=== PATIENT | male | born 1940 | race Caucasian/White ===

== ENCOUNTER 2020-07-26 15:30 | Outpatient (CLI) | payer MEDICARE, SELFPAY ==
--- NOTE | ~2020-07-26 | CT_ITS ---
EXAMINATION: CT sinus wo con DATE: 07/26/2020 16:08 INDICATION: Sinusitis TECHNIQUE: Computed tomography (CT) of the paranasal sinuses was performed without intravenous contra st. The dose-length product was 309.35 mGy-cm. Iterative reconstruction technique was employed. COMPARISON: 07/14/2017 FINDINGS: There is extensive mucosal thickening of the frontal, ethmoid, sphenoid and maxillary sinus es. There is mucoperiosteal reaction of the maxillary sinuses. Mastoids are pneumatized. Rightward na brown septal deviation. There are surgical changes bilaterally consistent with surgical resection of th e ostiomeatal units. Mastoids are pneumatized. IMPRESSION: 1. Extensive pansinusitis. Reviewed, dictated and finalized at location B. IMPRESSION: 1. Extensive pansinusitis.
== END 2020-07-26 15:31 | disposition home or self-care (01) ==
LOC: ANHIMG 15:37
PROVIDERS: PCP Internal Medicine; Visit Provider Otolaryngology
DX: J32.4 Chronic pansinusitis (principal)
CPT/HCPCS: 70486

== ENCOUNTER 2021-08-22 16:19 | Observation (INO) | payer MEDICARE, SELFPAY ==
[2021-08-22] VITALS (7 sets, daily range): BP systolic 164–173; BP diastolic 69–110; PULSE 70–95; RESP 15–20; TEMP 35.9–37.1; O2SAT 94–98; BMI 29.9
--- NOTE | ~2021-08-22 | US_ITS ---
EXAMINATION: US carotid duplex BI DATE: 08/23/2021 13:40 INDICATION: Cerebrovascular accident. TECHNIQUE: Grayscale, color Doppler, and pulsed Doppler images of the cervical carotid arteries were obtained. The degree of vessel stenosis is placed in one of the following categories: normal, <50%, 5 0-69%, >=70% but less than near-occlusion, near-occlusion, or total occlusion. Note that percent sten osis relative to normal distal artery lumen diameter is indirectly measured from velocity measurement s as described by Jorge, et al. Radiology 2003; 229:340-346. COMPARISON: None. FINDINGS: RIGHT: The right common carotid artery (CCA) peak systolic velocity (PSV) is 81 cm/s. The right internal car otid artery (ICA) PSV is 38 cm/s. The right ICA end-diastolic velocity (EDV) is 4 cm/s. The right ICA /CCA PSV ratio is 0.5. Grayscale and color Doppler images yield an estimate of <50% diameter reductio n from plaque in the ICA. There is antegrade flow in the right vertebral artery. LEFT: The left CCA PSV is 97 cm/s. The left ICA PSV is 76 cm/s. The left ICA EDV is 9 cm/s. The left ICA/CC A PSV ratio is 0.8. Grayscale and color Doppler images yield an estimate of <50% diameter reduction f rom plaque in the ICA. There is antegrade flow in the left vertebral artery. IMPRESSION: 1. <50% stenosis in the right internal carotid artery. 2. <50% stenosis in the left internal carotid artery. Reviewed, dictated and finalized at location A. HIC ARTIST
--- NOTE | ~2021-08-22 | XR_ITS ---
EXAMINATION: XR chest 1V portable DATE: 08/22/2021 16:41 INDICATION: Stroke. Altered mental status. TECHNIQUE: frontal view of the chest was obtained. COMPARISON: Chest radiograph dated 10/06/[address] dated 07/14/2017. FINDINGS: Persistent mild opacities at the lingula with partial obscuration of the apex of the heart which appe ars to correspond to a left paracardial fat pad on prior CT. Right lung is clear. No pulmonary edema, pleural effusion or pneumothorax. The cardiomediastinal silhouette is normal. Visualized bones and s oft tissues are unremarkable. IMPRESSION: 1. No acute cardiopulmonary disease. Reviewed, dictated and finalized at location A. ICE SUPERINTENDENT
--- NOTE | ~2021-08-22 | MR_ITS ---
EXAMINATION: MR brain/brain stem wo/w con EXAM DATE: 08/23/2021 13:11 INDICATION: Confusion. TECHNIQUE: Magnetic resonance imaging (MRI) of the brain/brain stem obtained without contrast. Sagit mendoza T1, axial diffusion, gradient echo (T2*), T1, T2, FLAIR sequences obtained. Patient was then inj ected with 18 cc intravenous Multihance contrast. Axial and coronal postcontrast T1 weighted sequence s obtained. There is no prior study for comparison. FINDINGS: Study is limited due to patient motion. There are no areas of restricted diffusion to sug gest acute infarction. There is no acute hemorrhage seen on the T2*, a hemosiderin sensitive sequenc e. No intraparenchymal brain mass lesion. There is mild to moderate periventricular and subcortical T2/FLAIR signal hyperintensity, nonspecific but probably related to small vessel ischemic disease (m icroangiopathy). There is mild to moderate prominence of the sulci and ventricles related to cerebr al atrophy. There are no extra-axial collections. Flow voids are seen in the cerebral arteries on the T2-weighted sequences consistent with their expected patency. The orbits are unremarkable. Soft tissue is unremarkable. Mild mucoperiosteal thickening. Post contrast images significantly limited by motion. IMPRESSION: 1. Limited study, but no acute findings suspected. 2. Chronic age related findings. Reviewed, dictated and finalized at location B. TRODYNAMICIST
--- NOTE | ~2021-08-22 | CT_ITS ---
EXAMINATION: CT brain wo con DATE: 08/22/2021 17:13 INDICATION: Stroke. Found unresponsive. TECHNIQUE: Computed tomography (CT) of the head was performed without intravenous contrast. Sagittal and coronal reconstructions were performed. The mA was adjusted according to patient size. Iterative reconstruction technique was employed. The dose-length product was 605.33 mGy-cm. COMPARISON: head CT dated 04/28/2012 FINDINGS: Mild scattered motion artifact which only minimally limits evaluation. No fracture. No acute intracra nial hemorrhage, acute infarction or abnormal extra axial fluid collection. There is mild to moderate scattered white matter hypoattenuation consistent with chronic small vessel ischemic disease. Ventri cles are normal and symmetric. No mass/mass effect. Mild to moderate mucosal thickening throughout th e paranasal sinuses most prominent in the left maxillary and bilateral ethmoid sinuses. Postoperative change of bilateral antral window procedures. Changes of bilateral intraocular lens replacement. Th e orbits and mastoid air cells are normal. IMPRESSION: 1. No acute intracranial process. 2. Mild to moderate scattered white matter hypoattenuation consistent with chronic small vessel ische jefry disease. Reviewed, dictated and finalized at location A. GE REGISTERED NURSE IMPRESSION: 1. No acute intracranial process. 2. Mild to moderate scattered white matter hypoattenuation consistent with medical office secretary eduard small vessel ischemic disease.
--- NOTE | 2021-08-22 16:26 | ECG_ITS ---
Measurements Intervals [place] Rate: 88 P: 56 SD: 158 QRS: -8 QRSD: 94 T: 47 QT: 372 QTc: 452 Interpretive Statements SINUS RHYTHM INCOMPLETE RIGHT BUNDLE BRANCH BLOCK VOLTAGE CRITERIA FOR LVH BASELINE ARTIFACT- I, II, III, AVL, AVF, V1-V2 BORDERLINE ECG Electronically Signed On 08-22-2021 20:06:39 AIRWAYS OPERATIONS SPECIALIST by Santy Zaragoza D.O.
[2021-08-22 16:41] LABS: Glucose Point of Care 136 mg/dl (65-105)
--- NOTE | 2021-08-22 16:43 | ED.AMS ---
HPI - Altered Mental Status General Chief Complaint: Altered Mental Status Stated Complaint: unresponsive Time Seen by Provider: 08/22/21 16:24 Source: family Mode of arrival: EMS Limitations: altered mental status History of Present Illness HPI narrative: Patient is a 80-year-old male brought in by EMS after he had a seizure and became unresponsive, while sitting down, witnessed by prior to arrival. states that he had a history of seizures a long time ago, has not had any seizure in 20 years, not on any medication for seizure. Patient was asymptomatic prior to the episode. Related Data Home Medications Medication Instructions Recorded Confirmed diphenoxylate-atropine 1 tablet PO TID 08/22/21 08/22/21 Allergies Allergy/AdvReac Type Severity Reaction Status Date / Time amoxicillin Allergy Unknown Diarrhea Verified 08/22/21 18:21 levofloxacin Allergy Unknown Diarrhea Verified 08/22/21 18:21 Penicillins Allergy Unknown Rash Verified 08/22/21 18:21 phenylephrine Allergy Unknown Diarrhea Verified 08/22/21 18:21 Review of Systems Review of Systems: All systems reviewed & are unremarkable except as noted in HPI and below ROS unobtainable: Yes unobtainable due to mental status Constitutional: Constitutional: Reports as per HPI PMFSH Family History Family History Father Hypertension Cerebrovascular accident Mother Family history of congestive heart failure Family history of heart disease in male family member before age 55 Other Family history of allergic disorder Family history of arthritis Social History Social History Smoking end date: 10/05/97 Alcohol intake: current Comments Past medical history: Hypertension Family history: Unknown Social history: Non-smoker no EtOH or drug use Exam Const: General: alert and confusion Nutritional Appearance: well nourished Other: Moderate distress HENMT: Head: normal to inspection, normocephalic and atraumatic Ears: hearing grossly normal bilaterally, TM normal on the right and TM normal on the left General nose exam: Normal external nose present, Normal nares present and No nasal discharge present Face and sinus: normal facial exam Mouth: Yes Normal oral and palatal mucosa present, Yes lip normal, Yes tongue normal and Yes oropharynx normal Throat: posterior oropharynx normal, tonsils normal and uvula midline Eyes: General: appearance normal, both eyes and all related structures Pupils: Equal, round and reactive pupils present EOM: EOMs intact bilaterally Neck: Neck: normal visual inspection, full ROM, no lymphadenopathy and no meningeal signs Chest: Chest palpation & inspection: normal inspection of the chest Resp: Effort & Inspection: normal respiratory effort, no respiratory distress and not tachypneic Auscultation: clear to auscultation bilaterally, no crackles, no rales, no rhonchi and no wheezes Cardio: Rate: regular rate Rhythm: regular rhythm GI: Inspection: normal to inspection GI Palp: No abdominal tenderness, Yes Soft to palpation, No Tenderness to palpation present (GI), No Guarding due to palpation present (GI), No Rigid due to palpation and No Rebound tenderness present Auscultation: normal bowel sounds : General: Yes no CVA tenderness Back/Spine/Pelvis: Back: no CVA tenderness Skin: General skin exam: normal color, no rashes or lesions noted, elasticity normal and turgor normal Neuro: General: tone normal, moves all extremities and Normal light touch and pain sensation Cranial nerves: Yes Equal, round and reactive pupils present Other: Confused, unable to follow any commands Extrem: General: normal to inspection, full ROM and capillary refill normal Psych: Appearance: well kempt Course Vital Signs Vital signs: Vital Signs Temperature 35.9 C L 08/22/21 16:16 Pulse Rate 91 08/22/21 16:16 Respirat
[2021-08-22] MEDS: LORazepam INJ (*CRX) 2 MG/ML VIAL IV PUSH (17:03)
[2021-08-22 18:19] LABS: Basophils Percent Auto 0.2 % (0.2-1.2); Hematocrit 42.4 % (42.0-52.0); Hemoglobin 15.2 g/dL (14.0-18.0); Immature Granulocyte Absolute 0.08 K/mm3 (0.00-0.031); Immature Granulocyte Percent A 0.4 % (0-0.5); Lymphocytes Absolute Auto 0.88 K/mm3 (0.9-3.2); Lymphocytes Percent Auto 4.5 % (18.3-44.2); Mean Corpuscular HGB Conc 35.8 g/dl (32-36); Mean Platelet Volume 11.1 fl (7.4-10.4); Monocytes Percent Auto 5.4 % (2.6-8.5); Neutrophils Absolute Auto 17.4 K/mm3 (1.3-6.7); Neutrophils Percent Auto 89.5 % (45.5-73.1); Platelet Count Result 237 k/mm3 (150-375); Red Blood Count 4.61 M/mm3 (4.6-6.20); Red Cell Distribution Width 11.9 % (11.5-14.5); White Blood Count 19.4 K/mm3 (4.5-10.0)
[2021-08-22 18:25] LABS: Glucose Point of Care 123 mg/dl (65-105)
[2021-08-22 18:29] LABS: Alanine Aminotransferase 26 U/L (4-50); Albumin Level 4.4 g/dL (3.5-5.1); Alkaline Phosphatase 78 U/L (38-126); Anion Gap 8 mmol/L (8-16); Aspartate Amino Transferase 42 U/L (17-59); Bilirubin,Total 0.6 mg/dL (0.2-1.3); Blood Urea Nitrogen 17 mg/dL (9-20); Calcium 9.1 mg/dL (8.4-10.2); Carbon Dioxide 26 mmol/L (22-30); Chloride 94 mmol/L (98-107); Estimated CRCL calculation 77 ml/min; Estimated Glomerular Filt Rate > 60; Ethanol < 10 mg/dL (<10); Glucose 120 mg/dL (65-110); Potassium 3.7 mmol/L (3.4-5.0); Sodium 128 mmol/L (137-145)
[2021-08-22 18:32] LABS: INR 0.9; Prothrombin Time 12.5 Seconds (11.1-14.7)
[2021-08-22 18:33] LABS: Partial Thromboplastin Time 24.8 SECONDS (22.3-36.8)
[2021-08-22 18:45] LABS: Troponin I 0.281 ng/mL (0.000-0.034)
[2021-08-22] MEDS: levETIRAcetam 1000MG/NACL100ML 1,000 MG/100 ML BAG 400 MG IVPB (19:33)
[2021-08-22] MEDS: SODIUM CHLORIDE 0.9% IV 1,000 ML 250 ML IV CONT (19:33)
[2021-08-22 20:09] LABS: Add Urine Microscopic? YES; Appearance Urine Cloudy (Clear); Bilirubin Urine Negative (Negative); Blood Urine 1+ (Negative); Color Urine Yellow (Yellow); Glucose Urine UA 1+ mg/dL (Negative); Ketones Urine Trace mg/dL (Negative); Leukocyte Esterase Ur Negative LEU/UL (Negative); Mucus Urine Rare /lpf; Nitrate Urine Negative (Negative); Protein Urine 2+ mg/dL (Negative); Specific Grav Ur 1.014 (1.001-1.035); Squamous Epithelial Cell Urine Rare /hpf (Few); Urobilinogen Urine Negative mg/dL (<2.0)
--- NOTE | 2021-08-22 21:30 | ADMGEN ---
This patient, Andre Steward, was admitted to IMU Room 205-02 at 2114. Patient/family oriented to hospital policies and general routines including ID bracelet, bed and alarms, visiting hours, pain management, procedures, bathroom and other care routines, personal items, smoking policy, room service/diet, and visiting hours. Information on how to activate the Rapid Response Team has been discussed. Patient/Family are encouraged to report perceived risks to care and to ask questions if they do not understand what they are told or what they should do.
--- NOTE | 2021-08-22 23:03 | PM.IMHP ---
H&P: HPI History of Present Illness Date/Time: 08/22/21 23:03 this is a 80-year-old male patient who has a history of having seizures in the past but is not on any medications for seizures. The patient is not able to answer questions at this time the is at the bedside answering questions for him. The patient was brought into the emergency room via EMS after he had a seizure and became unresponsive. The seizure was witnessed by his . The stated that the patient had a seizure approximately 20 years ago. The patient facially wakes up and answers questions but then he states I am sleeping and closes his eyes. Head CT was read by radiology as no acute intracranial process. Mild to moderate scattered white matter hypoattenuation consistent with chronic small vessel ischemic disease. Chest x-ray was read as no acute cardiopulmonary disease. White count 19.4. Sodium 128. With a baseline of 129 to 132. His blood sugar was 120. Troponin 0.281 and 0.270 respectively. Ethyl alcohol less than 10. Who Dr. Fitzpatrick was consulted for the seizure activity and cardiology for elevated troponin. The patient was given Ativan, aspirin, IV fluids and Keppra IV. The patient is being admitted to observation status on the date of service of 08/22/21. Chief Complaint: Seizure disorder Review of Systems Review of Systems: All systems reviewed & are unremarkable except as noted in HPI and below Constitutional: Constitutional: Reports as per HPI and Reports no additional constitutional complaints Eyes: Eyes: Reports as per HPI and Reports no additional eye complaints ENT: Reports system reviewed and no additional complaints, except as documented and Reports Normal hearing present Cardiovascular: Cardiovascular: Reports no additional cardiovascular complaints Respiratory: Respiratory: Reports no additional respiratory complaints and Reports no additional respiratory complaints Gastrointestinal: Gastrointestinal: Reports as per HPI and Reports no additional gastrointestinal complaints Musculoskeletal: Musculoskeletal: Reports no additional musculoskeletal complaints Integumentary/Breasts: Skin/Breast: Reports system reviewed and no additional complaints, except as docu and Reports as per HPI Neurologic: Reports system reviewed and no additional complaints, except as documented, Reports as per HPI and Reports Normal hearing present Psychiatric: Psychiatric: Reports no additional psychiatric complaints and Reports as per HPI Endocrine: Endocrine: Reports no additional endocrine complaints Hematologic/Lymphatic: Hematologic/Lymphatic: Reports no additional hematologic/lymphatic complaints Allergic/Immunologic: Allergic/Immunologic: Reports no additional allergic/immunologic complaints [facility] Past Medical History Medical History (Updated 08/22/21 @ 23:13 by Sheri Carias NP) Essential (primary) hypertension Mixed hyperlipidemia Seizure Surgical History Surgical History (Updated 08/22/21 @ 23:13 by Sheri Carias NP) H/O abdominal surgery H/O cataract extraction H/O nasal septoplasty H/O sinus surgery X3 Family History Family History Father Hypertension Cerebrovascular accident Mother Family history of congestive heart failure Family history of heart disease in male family member before age 55 Other Family history of allergic disorder Family history of arthritis Social History Social History (Updated 08/22/21 @ 23:15 by Sheri Carias NP) Social History: The patient lives with his . He has 4 children. According to the records the patient would drink up to 2-3 beers a day and more on the weekends. 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 Patient quit smoking many years ago. No marijuana or illicit drugs noted. His is the durable power of personal injury attorney for healthcare. Code status full code Smoking status: Former smoker Smoking end
[2021-08-22] MEDS: LORazepam INJ (*CRX) 2 MG/ML VIAL 0.5 MG IV PUSH (23:51)
[2021-08-23] VITALS (17 sets, daily range): BP systolic 133–170; BP diastolic 57–113; PULSE 69–90; RESP 12–20; TEMP 36.3–37.6; O2SAT 95–98; BMI 29.9
--- NOTE | 2021-08-23 | ECHO_ITS ---
Patient Info Name: Andre Steward Age: 80 years : 1940 Gender: Male Ht: 70 in Wt: 208 lbs BSA: 2.18 m2 HR: 70 bpm BP: 133 / 113 mmHg Heart Rhythm: Sinus Rhythm Technical Quality: Poor Exam Date: 08/23/2021 2:49 PM Exam Location: [facility] Pulmonary Exam Room: [facility] Patient Status: Outpatient Admit Date: 08/22/2021 Staff Ordering Physician: Sheri Carias NP [employer] Representative: Lisa Newberry RDCS Attending Provider: Elder Castillo MD Referring Physician: Jv NOLEN; Exam Type: CA echo dop bubble study w con Study Info Indications - confusion Complete two-dimentional, color flow and Doppler transthoracic echocardiogram is performed with agitated saline and with contrast to opacify the left ventricle and to improve the delineation of the left ventricle endocardial borders. Contrast/Agitated Saline Contrast/Ag. Saline: Definity Amount: 2.00 ml Administered By: Pearl Recio RN New IV Access: Right Site Condition: Site dressing applied Reason for Poor Study: patient body habitus Summary 1. Left ventricular chamber dimension is normal. 2. Left ventricular systolic function is normal, estimated at 65-70%. 3. There is mildly increased left ventricular wall thickness. 4. The left ventricular diastolic function is grade I diastolic dysfunction. 5. There is mild aortic valve stenosis with a peak velocity of 186 cm/s, mean gradient of 8 mmHg, and aortic valve area of 2.0 cm2. 6. There is moderate aortic valve calcification. 7. The aortic valve is significantly abnormal in appearance. It is thickened and calcified. If there is concern of endocarditis, would recommend a GUANACO. Will need follow-up/serial echoes as an outpatient. 8. There is mild tricuspid valve regurgitation. 9. Moderate pulmonary hypertension, estimated pulmonary arterial systolic pressure is 46 mmHg. 10. Intact interatrial septum visualized by color flow and agitated saline imaging. Left Ventricle Left ventricular chamber dimension is normal. Left ventricular systolic function is normal, estimated at 65-70%. There is mildly increased left ventricular wall thickness. The left ventricular diastolic function is grade I diastolic dysfunction. Right Ventricle Right ventricular chamber dimension is normal. Right ventricular systolic function is normal. Left Atria Left atrial chamber dimension is normal. Right Atria Right atrial chamber dimension is normal. Atrial Septum Intact interatrial septum visualized by color flow and agitated saline imaging. Aortic Valve The aortic valve is trileaflet. There is mild aortic valve stenosis with a peak velocity of 186 cm/s, mean gradient of 8 mmHg, and aortic valve area of 2.0 cm2. There is trace aortic valve regurgitation. There is moderate aortic valve calcification. The aortic valve is significantly abnormal in appearance. It is thickened and calcified. If there is concern of endocarditis, would recommend a GUANACO. Will need follow-up/serial echoes as an outpatient. Pulmonic Valve The pulmonic valve is normal. There is no pulmonic valve stenosis. There is trace pulmonic regurgitation. Mitral Valve The mitral valve has normal leaflets. There is no mitral valve stenosis. There is trace mitral valve regurgitation. Tricuspid Valve The tricuspid valve leaflets are normal. There is no significant tricuspid valve stenosis. There is mild tricuspid valve regurgitation.
[2021-08-23 00:31] LABS: Anion Gap 7 mmol/L (8-16); Blood Urea Nitrogen 15 mg/dL (9-20); Calcium 8.9 mg/dL (8.4-10.2); Carbon Dioxide 24 mmol/L (22-30); Chloride 97 mmol/L (98-107); Estimated CRCL calculation 67 ml/min; Estimated Glomerular Filt Rate > 60; Glucose 114 mg/dL (65-110); Potassium 3.5 mmol/L (3.4-5.0); Sodium 128 mmol/L (137-145)
[2021-08-23 01:56] LABS: Basophils Percent Auto 0.1 % (0.2-1.2); Eosinophils Percent Auto 0.1 % (0-4.4); Hematocrit 37.8 % (42.0-52.0); Hemoglobin 13.6 g/dL (14.0-18.0); Immature Granulocyte Absolute 0.05 K/mm3 (0.00-0.031); Immature Granulocyte Percent A 0.4 % (0-0.5); Lymphocytes Absolute Auto 1.56 K/mm3 (0.9-3.2); Lymphocytes Percent Auto 11.2 % (18.3-44.2); Mean Corpuscular Hemoglobin 33.1 pg (26-34); Monocytes Absolute Auto 1.2 K/mm3 (0.1-0.6); Monocytes Percent Auto 8.7 % (2.6-8.5); Neutrophils Absolute Auto 11.1 K/mm3 (1.3-6.7); Neutrophils Percent Auto 79.5 % (45.5-73.1); Platelet Count Result 236 k/mm3 (150-375); Red Blood Count 4.11 M/mm3 (4.6-6.20); Red Cell Distribution Width 11.9 % (11.5-14.5); White Blood Count 13.9 K/mm3 (4.5-10.0)
[2021-08-23 02:08] LABS: Alanine Aminotransferase 25 U/L (4-50); Albumin Level 3.9 g/dL (3.5-5.1); Alkaline Phosphatase 66 U/L (38-126); Anion Gap 7 mmol/L (8-16); Aspartate Amino Transferase 53 U/L (17-59); Bilirubin,Total 0.7 mg/dL (0.2-1.3); Blood Urea Nitrogen 15 mg/dL (9-20); Calcium 8.8 mg/dL (8.4-10.2); Carbon Dioxide 26 mmol/L (22-30); Chloride 98 mmol/L (98-107); Estimated CRCL calculation 67 ml/min; Estimated Glomerular Filt Rate > 60; Glucose 112 mg/dL (65-110); Lactate Dehydrogenase 642 U/L (313-618); Lactic Acid Reflex 0.9 mmol/L (0.7-2.1); Magnesium 1.9 mg/dL (1.6-2.3); Potassium 3.6 mmol/L (3.4-5.0); Sodium 131 mmol/L (137-145)
[2021-08-23 02:32] LABS: Troponin I 0.252 ng/mL (0.000-0.034)
[2021-08-23 02:39] LABS: Thyroid Stimulating Hormone Reflex 0.646 uIU/mL (0.465-4.68)
[2021-08-23] MEDS: LACTATED RINGERS 1,000 ML 125 ML IV CONT ×3 (03:55→23:46)
[2021-08-23 06:16] LABS: Sodium Urine Random 56 meq/L
[2021-08-23 06:31] LABS: Amphetamine Screen Urine Negative (Negative); Barbiturate Screen Urine Negative (Negative); Benzodiazepines Screen Urine Negative (Negative); Cannabinoid Screen Urine Negative (Negative); Cocaine Screen Urine Negative (Negative); Methadone Screen Urine Negative (Negative); Opiate Screen Urine Negative (Negative); Phencyclidine Screen Urine Negative (Negative)
[2021-08-23] MEDS: LORazepam INJ (*CRX) 2 MG/ML VIAL 0.5 MG IV PUSH (07:40)
[2021-08-23] MEDS: FOLIC ACID 1 MG/0.2 ML INJ IV PUSH (08:48)
[2021-08-23] MEDS: THIAMINE HCL 200 MG/2 ML VIAL 100 MG IV PUSH (08:48)
[2021-08-23] MEDS: METOPROLOL TARTRATE 50 MG TAB PO ×2 (08:49→20:09)
[2021-08-23] MEDS: levETIRAcetam 500MG/NACL 100ML 500 MG/100 ML BAG 400 MG IVPB ×2 (08:50→20:09)
[2021-08-23] MEDS: lisinopriL 10 MG TABLET 30 MG PO ×2 (08:50→17:04)
--- NOTE | 2021-08-23 10:13 | PM.IMPN ---
Progress Note: A&P Assessment and Plan (1) Seizure: Code(s): R56.9 - Unspecified convulsions Status: Chronic Assessment and Plan: Breakthrough seizure Last seizure more than 20 years ago Started on Keppra Neurology consulted CT head negative Pending MRI, carotids and Dopplers due to his confusion. (2) Acute hyponatremia: Code(s): E87.1 - Hypo-osmolality and hyponatremia Status: Acute Assessment and Plan: Patient chronically has low sodium. The patient's stated that the patient drinks beer on a daily basis but only 2 or 3 beers. He is not on any diuretics. Urine osmolarity and urine sodium pending. His sodium levels 128 today. Looks like he has a baseline anywhere from 129-133. (3) Elevated troponin: Code(s): R77.8 - Other specified abnormalities of plasma proteins Status: Acute Assessment and Plan: Appears to be level. Cardiology has been consulted. This could be related to the seizure. Flat trajectory Check echo May need stress test down the line (4) Altered mental status: Qualifiers: Altered mental status type: unspecified Qualified Code(s): R41.82 - Altered mental status, unspecified Code(s): R41.82 - Altered mental status, unspecified Status: Acute Assessment and Plan: Could be postictal Alcohol level negative UDS negative CT head negative Pending MRI, carotids and an echo (5) Essential (primary) hypertension: Code(s): I10 - Essential (primary) hypertension Status: Chronic Assessment and Plan: Continue with lisinopril metoprolol (6) Mixed hyperlipidemia: Code(s): E78.2 - Mixed hyperlipidemia Status: Chronic Assessment and Plan: The patient does not appear to be on any medication at this time. (7) Chronic pansinusitis: Code(s): J32.4 - Chronic pansinusitis Status: Acute Assessment and Plan: The patient has had 3 previous sinus surgeries and sees the ENT specialist. (8) Leukocytosis: Code(s): D72.829 - Elevated white blood cell count, unspecified Status: Acute Assessment and Plan: 19,000 on admission down to 13,000 without any antibiotics Urinalysis with few WBC but nitrite and leukocyte esterase negative not quite impressive Chest x-ray negative Subjective Date/time seen: 08/23/21 10:13 Interval history: HPI:this is a 80-year-old male patient who has a history of having seizures in the past but is not on any medications for seizures. The patient is not able to answer questions at this time the is at the bedside answering questions for him. The patient was brought into the emergency room via EMS after he had a seizure and became unresponsive. The seizure was witnessed by his . The stated that the patient had a seizure approximately 20 years ago. The patient facially wakes up and answers questions but then he states I am sleeping and closes his eyes. Head CT was read by radiology as no acute intracranial process. Mild to moderate scattered white matter hypoattenuation consistent with chronic small vessel ischemic disease. Chest x-ray was read as no acute cardiopulmonary disease. White count 19.4. Sodium 128. With a baseline of 129 to 132. His blood sugar was 120. Troponin 0.281 and 0.270 respectively. Ethyl alcohol less than 10. Who Dr. Fitzpatrick was consulted for the seizure activity and cardiology for elevated troponin. The patient was given Ativan, aspirin, IV fluids and Keppra IV. The patient is being admitted to observation status on the date of service of 08/22/21. 08/23/2021. More awake this morning. at bedside. Had a seizure in the afternoon yesterday. Has not had seizures for past 20 years. Review of Systems Review of Systems: All systems reviewed & are unremarkable except as noted in HPI and below Exam Narrative: GENERAL: The patient is well developed, not in acute distress HEENT: Nonicteric sclera
--- NOTE | 2021-08-23 10:13 | WPDNEURCNPN ---
Assessment and Plan Additional Plan 1. Ongoing seizure disorder with breakthrough seizures and documented subtherapeutic Keppra level 2. As per evaluation hyponatremia 3. Postictal state plan as ordered Consult date: 08/23/21 HPI: Andre Steward is a 80 year old male admitted to the hospital for the complaints of seizures he was unable to answer the question initially in the information was obtained from his reportedly was brought to the emergency room via EMS after having had a seizure and becoming unresponsive his seizure was witnessed by his patient's has had a seizure about 20 years ago as per the information from the initial CT scan of the head in the emergency room was negative for the bleed, mild to moderate scattered white matter hypoattenuation was noted, chest x-ray was negative and CBC revealed leukocytosis with sodium only 128 on the BMP alcohol level was less than 10. He received Ativan aspirin and IV fluids along with the Keppra intravenously in the emergency room , is a former smoker current alcohol intake alert but never substance user and his medication as an outpatient included metoprolol and lisinopril Review of Systems Review of Systems: All systems reviewed & are unremarkable except as noted in HPI and below PMFSH Past Medical History Medical History Essential (primary) hypertension Mixed hyperlipidemia Seizure Surgical History Surgical History H/O abdominal surgery H/O cataract extraction H/O nasal septoplasty H/O sinus surgery X3 Family History Family History Father Hypertension Cerebrovascular accident Mother Family history of congestive heart failure Family history of heart disease in male family member before age 55 Other Family history of allergic disorder Family history of arthritis Social History Social History (Updated 08/22/21 @ 23:15 by Sheri Carias NP) Social History: The patient lives with his . He has 4 children. According to the records the patient would drink up to 2-3 beers a day and more on the weekends. 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 Patient quit smoking many years ago. No marijuana or illicit drugs noted. 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 Code status full code Smoking status: Former smoker Smoking end date: 08/06/02 Alcohol intake: current Substance use: never Spiritual care concerns: No Meds Home Medications and Allergies Home Medications Medication Instructions Recorded Confirmed Type lisinopril 30 mg PO BID 08/22/21 08/22/21 History metoprolol tartrate 50 mg PO BID 08/22/21 08/22/21 History Allergies Allergy/AdvReac Type Severity Reaction Status Date / Time amoxicillin Allergy Unknown Diarrhea Verified 08/22/21 18:21 levofloxacin Allergy Unknown Diarrhea Verified 08/22/21 18:21 Penicillins Allergy Unknown Rash Verified 08/22/21 18:21 phenylephrine Allergy Unknown Diarrhea Verified 08/22/21 18:21 Vital Signs Vital Signs - 24 hr 08/22/21 16:16 08/22/21 18:17 08/22/21 20:30 Temperature 35.9 C L Pulse Rate 91 94 71 Pulse Rate [Bilateral Palpation] Respiratory Rate 20 18 15 Blood Pressure 168/97 H 172/94 H 173/110 H Pulse Oximetry 96 98 98 08/22/21 20:32 08/22/21 21:25 08/22/21 22:00 Temperature 37.1 C 36.9 C Pulse Rate 90 95 Pulse Rate [Bilateral Palpation] Respiratory Rate 16 Blood Pressure 164/69 H Pulse Oximetry 94 08/22/21 23:22 08/23/21 00:00 08/23/21 00:57 Temperature 36.9 C Pulse Rate 90 78 Pulse Rate [Bilateral Palpation] 70 70 Respiratory Rate 17 Blood Pressure 158/74 H Pulse Oximetry 95 08/23/21 04:00 08/23/21 07:20 08/23/21 07:42 Temperature 37.0 C 36.3 C L Pulse Rate 87 85 Pulse Rate [Bilateral Palpation] 81 81 Respiratory Rate 18 12 Blood P
--- NOTE | 2021-08-23 12:17 | PM.CNCAR ---
Assessment and Plan Additional Plan 80-year-old man with Minimally elevated troponin level following generalized seizure. No sign clinically electrocardiographically or otherwise that there is reason to think about an acute coronary syndrome. I do not have an explanation as to why the troponin levels were sampled in this situation. They are in my opinion clearly the result of the generalized seizure and not of an acute coronary issue. No cardiac workup in this setting would be necessary or appropriate. I will sign off of his case at this time please let me know if you have any other specific cardiac questions or concerns Rajeev Spear MD [facility] History of Present Illness History of Present Illness Consult date/time: 08/23/21 12:17 Reason For Visit: Seizure,Elevated Troponin,Altered Mental Status Narrative: This is a 80-year-old man I am seeing at the request of the hospitalist because of an elevated troponin level which was done for reasons that are not readily apparent after reviewing the chart. The gentleman does not have any history of cardiac disease that he is aware of and his corroborates this. He came into the hospital yesterday because he had a seizure while he was at home. The patient apparently has a history of a seizure disorder that has been quiescent for a long time. He was previously taking some anticonvulsant medication for this but it had been discontinued by his previous physicians. Yesterday while he was sitting in a chair at home he experienced typical seizure describes an episode of what appears to be generalized tonic clonic activity and an ambulance was called and he was brought to the hospital. After recovering from a postictal state he was free of any complaints. He does not remember having any complaints of any sort of chest pain prior to the event. He does not have any history of exertional chest pain he is an elderly man and does not do any structured exercise but with daily activities or walking a distance he does not have any symptomatology in the way of pain pressure or heaviness in the chest. He denies any previous episodes of syncope. He has not had any sense of palpitations orthopnea PND or accumulating lower extremity edema. When he was seen in the emergency room ago again troponin levels were sampled and are slightly elevated flat at 0.2. His electrocardiogram looks normal. In this setting and because of the troponin levels being out of range I was asked to see him in consultation today. Review of Systems Constitutional: Constitutional: Reports no additional constitutional complaints Eyes: Eyes: Reports no additional eye complaints ENT: Reports system reviewed and no additional complaints, except as documented Cardiovascular: Cardiovascular: Reports no additional cardiovascular complaints Respiratory: Respiratory: Reports no additional respiratory complaints Gastrointestinal: Gastrointestinal: Reports no additional gastrointestinal complaints Musculoskeletal: Musculoskeletal: Reports no additional musculoskeletal complaints Integumentary/Breasts: Skin/Breast: Reports system reviewed and no additional complaints, except as docu Neurologic: Reports as per HPI Endocrine: Endocrine: Reports no additional endocrine complaints Hematologic/Lymphatic: Hematologic/Lymphatic: Reports no additional hematologic/lymphatic complaints Allergic/Immunologic: Allergic/Immunologic: Reports no additional allergic/immunologic complaints PMFSH Past Medical History Medical History Essential (primary) hypertension Mixed hyperlipidemia Seizure Surgical History Surgical History H/O abdominal surgery H/O cataract extraction H/O nasal septoplasty H/O sinus surgery X3 Family History Family History Father Hypertension Cerebrovascular accident
--- NOTE | 2021-08-23 14:25 | PC.NURSE ---
On 08/23/21, the student, [Phillip Haq], provided care and completed [facility] documentation on this patient. I have reviewed the student's documentation and agree with the findings.
[2021-08-23] MEDS: PERFLUTREN LIPID MICROSPHERES 1.5 ML VIAL DILUTED TO 10 ML TOTAL VOLUME IV PUSH (15:20)
[2021-08-24] VITALS (8 sets, daily range): BP systolic 156–182; BP diastolic 62–74; PULSE 61–77; RESP 18; TEMP 37.3–37.6; O2SAT 93–94
[2021-08-24 05:23] LABS: Basophils Absolute Auto 0.1 K/mm3 (0.0-0.1); Basophils Percent Auto 0.5 % (0.2-1.2); Eosinophils Absolute Auto 0.2 K/mm3 (0-0.3); Eosinophils Percent Auto 1.8 % (0-4.4); Hematocrit 35.8 % (42.0-52.0); Hemoglobin 12.8 g/dL (14.0-18.0); Immature Granulocyte Absolute 0.04 K/mm3 (0.00-0.031); Immature Granulocyte Percent A 0.3 % (0-0.5); Lymphocytes Absolute Auto 2.54 K/mm3 (0.9-3.2); Lymphocytes Percent Auto 21.3 % (18.3-44.2); Mean Corpuscular HGB Conc 35.8 g/dl (32-36); Mean Corpuscular Hemoglobin 33.1 pg (26-34); Mean Corpuscular Volume 92.5 fl (80-100); Mean Platelet Volume 10.9 fl (7.4-10.4); Monocytes Absolute Auto 1.1 K/mm3 (0.1-0.6); Monocytes Percent Auto 9.3 % (2.6-8.5); Neutrophils Percent Auto 66.8 % (45.5-73.1); Platelet Count Result 210 k/mm3 (150-375); Red Blood Count 3.87 M/mm3 (4.6-6.20); Red Cell Distribution Width 11.9 % (11.5-14.5); White Blood Count 11.9 K/mm3 (4.5-10.0)
[2021-08-24 05:35] LABS: Anion Gap 4 mmol/L (8-16); Blood Urea Nitrogen 14 mg/dL (9-20); Calcium 8.7 mg/dL (8.4-10.2); Carbon Dioxide 29 mmol/L (22-30); Chloride 99 mmol/L (98-107); Estimated CRCL calculation 60 ml/min; Estimated Glomerular Filt Rate > 60; Glucose 99 mg/dL (65-110); Potassium 3.4 mmol/L (3.4-5.0); Sodium 132 mmol/L (137-145)
[2021-08-24] MEDS: LACTATED RINGERS 1,000 ML 125 ML IV CONT (08:35)
[2021-08-24] MEDS: lisinopriL 10 MG TABLET 30 MG PO (08:41)
[2021-08-24] MEDS: THIAMINE HCL 200 MG/2 ML VIAL 100 MG IV PUSH (08:42)
[2021-08-24] MEDS: METOPROLOL TARTRATE 50 MG TAB PO (08:42)
[2021-08-24] MEDS: FOLIC ACID 1 MG/0.2 ML INJ IV PUSH (08:49)
[2021-08-24] MEDS: levETIRAcetam 500MG/NACL 100ML 500 MG/100 ML BAG 400 MG IVPB (10:36)
--- NOTE | 2021-08-24 11:44 | PM.DS ---
DS: Admitting Diagnosis Discharge Date 08/24/2021 Admitting Diagnosis Seizure DS: Discharge Diagnosis Discharge Diagnosis (1) Seizure: Code(s): R56.9 - Unspecified convulsions Status: Chronic Assessment and Plan: Breakthrough seizure Last seizure more than 20 years ago Started on Keppra Neurology consulted CT head negative MRI brain negative Carotid Doppler with no significant stenosis Seizure controlled on Keppra will continue Keppra 500 b.i.d. at discharge. Discussed with Neurology Follow-up with neurology as outpatient basis (2) Acute hyponatremia: Code(s): E87.1 - Hypo-osmolality and hyponatremia Status: Acute Assessment and Plan: Patient chronically has low sodium. The patient's stated that the patient drinks beer on a daily basis but only 2 or 3 beers. He is not on any diuretics. Urine osmolarity and urine sodium pending. His sodium levels 128 on admission Looks like he has a baseline anywhere from 129-133. (3) Elevated troponin: Code(s): R77.8 - Other specified abnormalities of plasma proteins Status: Acute Assessment and Plan: Appears to be level. Cardiology has been consulted. This could be related to the seizure. Flat trajectory Cardiology evaluated, not suggestive of ACS No further cardiac workup needed Echo with normal ejection fraction at 65-70% grade 1 diastolic dysfunction. Mild aortic valve stenosis moderate aortic valve calcification aortic valve thickened and calcified noted need serial echocardiogram as an outpatient basis (4) Altered mental status: Qualifiers: Altered mental status type: unspecified Qualified Code(s): R41.82 - Altered mental status, unspecified Code(s): R41.82 - Altered mental status, unspecified Status: Acute Assessment and Plan: Could be postictal Alcohol level negative UDS negative CT head negative Back to normal MRI negative Carotid Doppler is negative (5) Essential (primary) hypertension: Code(s): I10 - Essential (primary) hypertension Status: Chronic Assessment and Plan: Continue with lisinopril metoprolol Mildly hypertensive follow-up and adjustment of medication as outpatient basis (6) Mixed hyperlipidemia: Code(s): E78.2 - Mixed hyperlipidemia Status: Chronic Assessment and Plan: The patient does not appear to be on any medication at this time. (7) Chronic pansinusitis: Code(s): J32.4 - Chronic pansinusitis Status: Acute Assessment and Plan: The patient has had 3 previous sinus surgeries and sees the ENT specialist. (8) Leukocytosis: Code(s): D72.829 - Elevated white blood cell count, unspecified Status: Acute Assessment and Plan: 19,000 on admission down to 13,000 without any antibiotics for the down to 11,000 by the time of discharge likely reactive due to seizure Urinalysis with few WBC but nitrite and leukocyte esterase negative not quite impressive Chest x-ray negative DS: Summary Hospital Course Hospital Course: See above Time Spent with Patient Time attestation: Total time spent providing and/or coordinating discharge services: 45 minutes Exam Narrative: GENERAL: The patient is well developed, not in acute distress HEENT: Nonicteric sclerae, PERRLA, EOMI. Oropharynx clear. Moist mucous membranes. Conjunctivae appear well perfused. CHEST: Chest wall is nontender. HEART: Regular rate and rhythm without murmur, rubs, or gallops LUNGS: Clear to auscultation bilaterally. no respiratory distress ABDOMEN: Soft, positive bowel sounds, non-tender, no organomegaly. SKIN: No rash, no excessive bruising, petechiae, or purpura. NEUROLOGIC: Cranial nerves II-XII intact, alert and conversant oriented to place and person not to time, no gross motor deficits mild confusion persists EXTREMITIES: no edema, cyanosis or clubbing DS: Data Data Completed and Pending Completed studies during hospita
--- NOTE | 2021-08-24 12:06 | PCSTNOTE ---
Please refer to the Bedside Swallow Evaluation in the EMR. Please note, silent aspiration cannot be ruled out at bedside.
--- NOTE | 2021-08-24 13:50 | PC.NURSE ---
Patient discharged to home at 13:40. Prior to discharge, patient voided 50 mL's 30 minutes after the catheter was removed. Education was provided on new prescription and patient had no further questions at this time.
[2021-08-26 04:15] LABS: Osmolality, Urine 527 mOsm/kg (50-1200)
== END 2021-08-24 13:40 | disposition home or self-care (01) ==
LOC: ANHED 19:25 → ANHIMU 20:30
PROVIDERS: Nurse Practitioner; Admitting Provider Internal Medicine; Emergency Provider Emergency Medicine; PCP Internal Medicine; Visit Provider Internal Medicine
DX: G40.909 Epilepsy, unspecified, not intractable, without status epilepticus (principal); E87.1 Hypo-osmolality and hyponatremia; R77.8 Other specified abnormalities of plasma proteins; R41.82 Altered mental status, unspecified; D72.829 Elevated white blood cell count, unspecified; I35.0 Nonrheumatic aortic (valve) stenosis; I36.1 Nonrheumatic tricuspid (valve) insufficiency; I27.20 Pulmonary hypertension, unspecified; I65.23 Occlusion and stenosis of bilateral carotid arteries; I10 Essential (primary) hypertension; E78.2 Mixed hyperlipidemia; J32.4 Chronic pansinusitis; Z87.891 Personal history of nicotine dependence
CPT/HCPCS: 36415; 51701; 70450; 70553; 71045; 80048; 80053; 80307; 81001; 82948; 83605; 83615; 83735; 83935; 84300; 84443; 84484; 85025; 85610; 85730; 92610; 93005; 93880; 96361; 96365; 96366; 96374; 96375; 96376; 99285; A9270; A9577; C8929; G0378; J1953; J2060; J3411; J7030; J7120; Q9957

== ENCOUNTER 2021-09-02 14:24 | Outpatient (CLI) | payer MEDICARE, SELFPAY ==
--- NOTE | ~2021-09-02 | XR_ITS ---
EXAMINATION: XR chest 2V EXAM DATE: 09/02/2021 14:56 INDICATION: Midline chest pain with inspiration. TECHNIQUE: Frontal and lateral projections of the chest obtained and reviewed. Comparison is made to prior examination from 08/22/2020. FINDINGS: The lungs are clear. There are no pleural effusions. The cardiomediastinal silhouette is within normal limits. There is no pneumothorax suspected. Lower thoracic mild to moderate compressi on fracture probably T12. There is aortic arteriosclerosis. IMPRESSION: No acute cardiopulmonary findings. Reviewed, dictated and finalized at location A. [employer] T[employer] PLANT ATTENDANT
== END 2021-09-02 14:25 | disposition home or self-care (01) ==
PROVIDERS: PCP Internal Medicine; Visit Provider Internal Medicine
DX: R56.9 Unspecified convulsions (principal); R07.89 Other chest pain; M48.54XA Collapsed vertebra, not elsewhere classified, thoracic region, initial encounter for fracture; I70.0 Atherosclerosis of aorta
CPT/HCPCS: 36415; 71046; 80177

== ENCOUNTER 2021-09-03 15:28 | Outpatient (CLI) | payer MEDICARE, SELFPAY ==
--- NOTE | ~2021-09-03 | XR_ITS ---
EXAMINATION: XR thoracic spine 3V EXAM DATE: 09/03/2021 16:01 INDICATION: M54.9 - Dorsalgia, chest pain and back pain. History compression fracture. TECHNIQUE: Frontal and lateral projections of the thoracic spine as well as lateral swimmers projecti on of the upper thoracic spine for interpretation. Correlation is made to CT chest 07/14/2017. FINDINGS: 3 consecutive midthoracic compression fractures, probably T3-T5. There is mild compression at T3, mild to moderate at T4 and mild at T5. These appear chronic. There is mild mid and lower thora cic disc disease. Paraspinal soft tissue is unremarkable. IMPRESSION: Chronic midthoracic compression fractures. Reviewed, dictated and finalized at location A. UTER AIDED DESIGN DRAFTER
== END 2021-09-03 15:29 | disposition home or self-care (01) ==
PROVIDERS: PCP Internal Medicine; Visit Provider Internal Medicine
DX: M48.54XA Collapsed vertebra, not elsewhere classified, thoracic region, initial encounter for fracture (principal)
CPT/HCPCS: 72072

== ENCOUNTER 2021-09-06 14:48 | Outpatient (CLI) | payer MEDICARE, SELFPAY ==
[2021-09-10 05:47] LABS: Levetiracetam Keppra 5.7 mcg/mL (12.0-46.0)
== END 2021-09-06 14:49 | disposition home or self-care (01) ==
PROVIDERS: PCP Internal Medicine; Visit Provider Internal Medicine
DX: R56.9 Unspecified convulsions (principal)
CPT/HCPCS: 36415; 80177

== ENCOUNTER 2021-09-24 15:12 | Outpatient (CLI) | payer MEDICARE, SELFPAY ==
[2021-09-28 09:08] LABS: Levetiracetam Keppra 14.9 mcg/mL (12.0-46.0)
== END 2021-09-24 15:13 | disposition home or self-care (01) ==
LOC: ANHLAB 15:13
PROVIDERS: PCP Internal Medicine; Visit Provider Internal Medicine
DX: R56.9 Unspecified convulsions (principal)
CPT/HCPCS: 36415; 80177

== ENCOUNTER → 2021-10-25 03:24 | Outpatient (CLI) | payer MEDICARE, SELFPAY ==
[2021-10-25 21:56] LABS: SARS-CoV-2 RNA PCR Positive
[2021-10-27 22:01] LABS: Influenza A QL RT-PCR Negative (Negative); Influenza B QL RT-PCR Negative (Negative)
== END ==
PROVIDERS: PCP Internal Medicine; Visit Provider Internal Medicine
DX: U07.1 COVID-19 (principal)
CPT/HCPCS: 87502; C9803; U0003; U0005

== ENCOUNTER 2022-11-06 10:46 | Inpatient (IN) | payer MEDICARE, SELFPAY ==
[2022-11-06] VITALS (19 sets, daily range): BP systolic 115–189; BP diastolic 68–95; PULSE 72–130; RESP 16–27; TEMP 36.1–37.1; O2SAT 95–100; BMI 33.0
--- NOTE | ~2022-11-06 | XR_ITS ---
EXAMINATION: XR chest 2V DATE: 11/10/2022 08:09 INDICATION: Pneumonia TECHNIQUE: PA and lateral views of the chest are obtained. COMPARISON: 11/06/2022 FINDINGS: The lungs are free of acute opacities. No pleural effusion or pneumothorax. The cardiomedia stinal silhouette is normal. There is severe thoracic spondylosis. Again noted is chronic height loss of multiple thoracic vertebral bodies. IMPRESSION: 1. No acute cardiopulmonary abnormality. Reviewed, dictated and finalized at location B. [employer] REGULATORY LEAD
--- NOTE | ~2022-11-06 | XR_ITS ---
Portable chest x-ray Comparison: 09/02/2021 Clinical History: Cough, chest congestion Findings: Lungs are clear, without focal consolidation or pleural effusion. Cardiomediastinal silho uette is stable. Bones and soft tissues are unremarkable. Impression: Clear lungs. Reviewed, dictated and finalized at location . PHOTOGRAPHER Impression: Clear lungs.
--- NOTE | ~2022-11-06 | CT_ITS ---
EXAMINATION: CTA chest PE protocol DATE: 11/06/2022 14:42 INDICATION: Cough and congestion. TECHNIQUE: Computed tomography angiography (CTA) of the chest was performed with 100 mL Omnipaque-350 intravenous contrast timed to evaluate the pulmonary arteries. Coronal maximum intensity projection 3D-reconstructions were created by the technologist. Automated exposure control and iterative reconst ruction technique were employed. The dose-length product was 841.31 mGy-cm. COMPARISON: Chest CT 07/14/2017 FINDINGS: There is mild scarring at the lung apices. There is mild atelectasis bilaterally. There are centrilobular nodules and tree-in-bud opacities in left upper lobe, consistent with pneumonia. A jose manuel cified right lung nodule and calcified right hilar lymph nodes are consistent with old granulomatous disease. No pleural effusion. The heart size is normal. There are coronary artery calcifications. The re are calcifications of the aortic valve. No pericardial effusion. There is no pulmonary embolus. T here is material in left upper lobe bronchi, which may be mucous plugging. There is a left hilar and mediastinal lymphadenopathy. The lymphadenopathy exerts mass effect on the left upper lobe bronchi. T here is a 6 mm nodule in left thyroid lobe, likely not clinically significant. There is severe thorac ic spondylosis. There is chronic height loss of multiple vertebral bodies. IMPRESSION: 1. Left upper lobe pneumonia. 2. Left hilar and mediastinal lymphadenopathy with mass effect on the left upper lobe bronchi. These findings may be reactive lymphadenopathy or metastatic disease. Consider bronchoscopy or one-month fo llow-up chest CT with contrast. 3. No pulmonary embolus. Reviewed, dictated and finalized at location [facility]. [facility] IMPRESSION: 1. Left upper lobe pneumonia. 2. Left hilar and mediastinal lymphadenopathy with mass effect on the left uppe r lobe bronchi. These findings may be reactive lymphadenopathy or metastatic di sease. Consider bronchoscopy or one-month follow-up chest CT with contrast. 3. No pulmonary embolus.
--- NOTE | 2022-11-06 11:07 | ECG_ITS ---
Measurements Intervals [employer] Rate: 129 P: OR: 0 QRS: -2 QRSD: 78 T: 63 QT: 289 QTc: 424 Interpretive Statements ATRIAL FIBRILLATION WITH RAPID VENTRICULAR RESPONSE MODERATE VOLTAGE CRITERIA FOR LVH, CONSIDER NORMAL VARIANT [MEETS CRITERIA IN ONE OF: R(aVL), S(V1), R(V5), R(V5/V6)+S(V1)] NONSPECIFIC ST & T-WAVE ABNORMALITY ABNORMAL RHYTHM ECG COMPARED TO ECG 08/22/2021 16:26:56 ATRIAL FIBRILLATION NOW PRESENT T-WAVE ABNORMALITY NOW PRESENT Electronically Signed On 11-06-2022 14:00:30 EXTRUSION TECHNICIAN by Danyel Goodman M.D.
[2022-11-06 11:26] LABS: Basophils Absolute Auto 0.1 K/mm3 (0.0-0.1); Basophils Percent Auto 0.5 % (0.2-1.2); Eosinophils Absolute Auto 0.2 K/mm3 (0-0.3); Eosinophils Percent Auto 1.7 % (0-4.4); Hematocrit 46.3 % (42.0-52.0); Hemoglobin 15.8 g/dL (14.0-18.0); Immature Granulocyte Absolute 0.04 K/mm3 (0.00-0.031); Immature Granulocyte Percent A 0.4 % (0-0.5); Lymphocytes Absolute Auto 2.42 K/mm3 (0.9-3.2); Lymphocytes Percent Auto 21.4 % (18.3-44.2); Mean Corpuscular HGB Conc 34.1 g/dl (32-36); Mean Corpuscular Hemoglobin 32.1 pg (26-34); Mean Corpuscular Volume 94.1 fl (80-100); Mean Platelet Volume 10.8 fl (7.4-10.4); Monocytes Absolute Auto 1.1 K/mm3 (0.1-0.6); Monocytes Percent Auto 9.8 % (2.6-8.5); Neutrophils Absolute Auto 7.5 K/mm3 (1.3-6.7); Neutrophils Percent Auto 66.2 % (45.5-73.1); Platelet Count Result 252 k/mm3 (150-375); Red Blood Count 4.92 M/mm3 (4.6-6.20); Red Cell Distribution Width 12.3 % (11.5-14.5); White Blood Count 11.3 K/mm3 (4.5-10.0)
[2022-11-06 11:41] LABS: Alanine Aminotransferase 24 U/L (6-50); Albumin Level 4.3 g/dL (3.5-5.1); Alkaline Phosphatase 89 U/L (38-126); Anion Gap 8 mmol/L (8-16); Aspartate Amino Transferase 31 U/L (17-59); Bilirubin,Total 0.8 mg/dL (0.2-1.3); Blood Urea Nitrogen 14 mg/dL (9-20); Calcium 8.6 mg/dL (8.4-10.2); Carbon Dioxide 28 mmol/L (22-30); Chloride 90 mmol/L (98-107); Estimated CRCL calculation 49 ml/min; Estimated Glomerular Filt Rate 58; Glucose 153 mg/dL (65-110); Potassium 3.7 mmol/L (3.4-5.0); Sodium 126 mmol/L (137-145)
[2022-11-06 11:59] LABS: Influenza A QL RT-PCR Negative (Negative); Influenza B QL RT-PCR Negative (Negative); RSV RNA, RT-PCR Negative (Negative); SARS-CoV-2 RNA PCR Negative
--- NOTE | 2022-11-06 12:06 | ED.GENADULT ---
HPI - General Adult General Chief complaint: Upper Respiratory Infection Stated complaint: SOB, cough Time Seen by Provider: 11/06/22 12:04 Source: patient Mode of arrival: ambulatory Limitations: no limitations History of Present Illness HPI narrative: Patient is an 81-year-old male with a history of hypertension, hyperlipidemia, seizure disorder on Keppra, presenting to the emergency department for evaluation of cough, congestion, myalgias, chills. Patient states that he has felt unwell over the past 5 days. Patient reports runny nose, congestion, sinus drainage and productive cough. He denies hemoptysis. He denies fever, but reports night sweats and myalgias. He denies any significant chest pain but reports his chest does hurt if he coughs forcefully. He denies any abdominal pain, nausea or vomiting. He denies lower extremity swelling or edema. He denies calf pain. No recent travel or recent sick contacts. Patient heart rate is regular. No history of atrial fibrillation. Denies known history of chronic anticoagulation. Related Data Home Medications Medication Instructions Recorded Confirmed aspirin 81 mg tablet,delayed 81 mg PO DAILY 09/02/21 05/16/22 release (Adult Aspirin Regimen) folic acid 400 mcg tablet 0.4 mg PO DAILY 09/02/21 05/16/22 omega-3 fatty acids 1,000 mg 1,000 mg PO DAILY 09/02/21 05/16/22 capsule (Fish Oil Concentrate) Allergies Allergy/AdvReac Type Severity Reaction Status Date / Time amoxicillin Allergy Unknown Diarrhea Verified 05/16/22 12:53 levofloxacin Allergy Unknown Diarrhea Verified 05/16/22 12:53 Penicillins Allergy Unknown Rash Verified 05/16/22 12:53 phenylephrine Allergy Unknown Diarrhea Verified 05/16/22 12:53 Review of Systems Review of Systems: CONSTITUTIONAL: Denies fever, chills, reports night sweats EYES: Denies visual changes, redness, or discharge. ENT: Reports runny nose, congestion, denies sore throat or ear pain CARDIOVASCULAR: Reports chest pain with coughing, denies palpitations or leg edema RESPIRATORY: Reports cough without shortness of breath GASTROINTESTINAL: Denies abdominal pain, nausea, vomiting, or diarrhea. GENITOURINARY: Denies dysuria or hematuria. SKIN: Denies rash or itching. MUSCULOSKELETAL: Denies back pain, joint pain, but reports myalgias NEUROLOGIC: Denies headache, numbness, or weakness. [facility] Past Medical History Medical History COVID-19 Essential (primary) hypertension Mixed hyperlipidemia Seizure Surgical History Surgical History H/O abdominal surgery H/O cataract extraction H/O nasal septoplasty H/O sinus surgery X3 Family History Family History Father Hypertension Cerebrovascular accident Mother Family history of congestive heart failure Family history of heart disease in male family member before age 55 Other Family history of allergic disorder Family history of arthritis Social History Social History Social History: The patient lives with his . He has 4 children. According to the records the patient would drink up to 2-3 beers a day and more on the weekends. 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 Patient quit smoking many years ago. No marijuana or illicit drugs noted. His is the durable power of civil attorney for healthcare. Code status full code Smoking packs per day: 1 Smoking cigarettes per day: 20.0 Years smoked: 40 Smoking pack-years: 40.00 Smoking status: Former smoker Smoking end date: 08/06/02 Alcohol intake: current Drinks per week: 4 Substance use: never Spiritual care concerns: No Exam Narrative: GENERAL: Awake, alert, conversant HEAD: Normocephalic, atraumatic. EYES: PERRLA and EOMI. ENT: Nares clear, no rhinorrhea or epistaxis
[2022-11-06] MEDS: SODIUM CHLORIDE 0.9% IV 500 ML 999 ML IV CONT (13:14)
[2022-11-06 13:27] LABS: Lactic Acid Reflex 2.1 mmol/L (0.7-2.0)
--- NOTE | 2022-11-06 13:51 | ECG_ITS ---
Measurements Intervals [employer] Rate: 75 P: 22 DC: 166 QRS: -5 QRSD: 83 T: 55 QT: 374 QTc: 419 Interpretive Statements SINUS RHYTHM MINIMAL VOLTAGE CRITERIA FOR LVH, CONSIDER NORMAL VARIANT [MEETS CRITERIA IN ONE OF: R(aVL), S(V1), R(V5), R(V5/V6)+S(V1)] COMPARED TO ECG 11/06/2022 11:11:02 SINUS RHYTHM NOW REPLACES ATRIAL FIBRILLATION Electronically Signed On 11-07-2022 14:33:21 MICROPALEONTOLOGIST by Rajeev Spear M.D.
[2022-11-06 14:25] LABS: NT Pro B Type Natriuretic Pept 3830 pg/mL (19.9-100)
--- NOTE | 2022-11-06 16:00 | PM.IMHP ---
H&P: HPI History of Present Illness Date/Time: 11/06/22 16:00 Chief Complaint: Cough with upper respiratory infection Narrative: This is a 81-year-old male patient to has a history of hyperlipidemia seizure disorder hypertension and alcoholism. The patient came into the emergency room with complaints of congestion to his chest and upper airway. He has a cough myalgias and chills. The patient stated that he has been feeling unwell for the last 5 days. He has nasal congestion and a productive cough. The patient stated that his chest discomfort is occurring when he coughs forcefully. His white count is noted to be 11.3. His sodium was 126. Lactic is 2.1 blood glucose 153. Troponin 0.15. BNP 3830. Patient is negative for influenza a B RSV and COVID. Chest x-ray was read as clear lungs. Chest CTA was read as the following 1. Left upper lobe pneumonia. 2. Left hilar and mediastinal lymphadenopathy with mass effect on the left upper lobe bronchi. These findings may be reactive lymphadenopathy or metastatic disease. Consider bronchoscopy or one-month follow-up chest CT with contrast. 3. No pulmonary embolus. The patient was started on Levaquin and given IV fluids. The patient was requesting to go home. I explained him that he needed to at least be observed overnight so that we can trend his troponins and get his sodium up a little bit higher. The patient is requesting to go home tomorrow if possible. The patient is being admitted to observation status on the date of service of 11/06/2022 Review of Systems Review of Systems: See HPI All systems reviewed & are unremarkable except as noted in HPI and below Constitutional: Constitutional: Reports as per HPI and Reports no additional constitutional complaints Eyes: Eyes: Reports as per HPI and Reports no additional eye complaints ENT: Reports system reviewed and no additional complaints, except as documented and Reports Normal hearing present Cardiovascular: Cardiovascular: Reports no additional cardiovascular complaints Respiratory: Respiratory: Reports no additional respiratory complaints and Reports no additional respiratory complaints Gastrointestinal: Gastrointestinal: Reports as per HPI and Reports no additional gastrointestinal complaints Musculoskeletal: Musculoskeletal: Reports no additional musculoskeletal complaints Integumentary/Breasts: Skin/Breast: Reports system reviewed and no additional complaints, except as docu and Reports as per HPI Neurologic: Reports system reviewed and no additional complaints, except as documented, Reports as per HPI and Reports Normal hearing present Psychiatric: Psychiatric: Reports no additional psychiatric complaints and Reports as per HPI Endocrine: Endocrine: Reports no additional endocrine complaints Hematologic/Lymphatic: Hematologic/Lymphatic: Reports no additional hematologic/lymphatic complaints Allergic/Immunologic: Allergic/Immunologic: Reports no additional allergic/immunologic complaints [facility] Past Medical History Medical History (Updated 11/06/22 @ 18:01 by Sheri Carias NP) COVID-19 Essential (primary) hypertension Mixed hyperlipidemia Seizure Surgical History Surgical History (Updated 11/06/22 @ 17:43 by Sheri Carias NP) H/O abdominal surgery Abdominal umbilical hernia repair with multiple complications and least 2 more surgeries after that. H/O cataract extraction H/O colonoscopy with polypectomy H/O nasal septoplasty Sinus surgery H/O sinus surgery X3 History of removal of pigmented skin lesion History of tonsillectomy and adenoidectomy Family History Family History Father Hypertension Cerebrovascular accident Mother Family history of congestive heart failure Family history of heart disease in male family member before age 55 Other Family history of allergic disorder Family history of arthritis Social History Social History
[2022-11-06 16:16] LABS: Reflex Lactic Acid Yes or No Add Lactic
--- NOTE | 2022-11-06 16:40 | ADMGEN ---
This patient, Andre Steward, was admitted to IMU Room 210-01. Patient/family oriented to hospital policies and general routines including ID bracelet, bed and alarms, visiting hours, pain management, procedures, bathroom and other care routines, personal items, smoking policy, room service/diet, and visiting hours. Information on how to activate the Rapid Response Team has been discussed. Patient/Family are encouraged to report perceived risks to care and to ask questions if they do not understand what they are told or what they should do.
[2022-11-06 17:35] LABS: Lactic Acid 1.4 mmol/L (0.7-2.0)
[2022-11-06 17:51] LABS: Troponin I 0.422 ng/mL (0.000-0.034)
--- NOTE | 2022-11-06 18:59 | PC.NURSE ---
Verified levofloxacin allergy with patient. Patient faintly recalls diarrhea r/t levofloxacin. Changed levofloxacin to adverse reaction. Sheri aware of reaction. BATTERY MECHANIC and patient both agree to administration of med.
[2022-11-06 20:33] LABS: Glucose Point of Care 126 mg/dl (65-105)
[2022-11-06 22:15] LABS: Troponin I 0.449 ng/mL (0.000-0.034)
[2022-11-06] MEDS: levETIRAcetam 500 MG TABLET PO (22:28)
[2022-11-06] MEDS: METOPROLOL TARTRATE 50 MG TAB PO (22:28)
[2022-11-06] MEDS: lisinopriL 10 MG TABLET 30 MG PO (22:28)
[2022-11-07] VITALS (19 sets, daily range): BP systolic 161–177; BP diastolic 52–82; PULSE 63–79; RESP 16–20; TEMP 36–36.7; O2SAT 97–100
--- NOTE | 2022-11-07 | ECHO_ITS ---
Patient Info Name: Andre Steward Age: 81 years : 1940 Gender: Male Ht: 67 in Wt: 210 lbs BSA: 2.16 m2 HR: 71 bpm BP: 161 / 52 mmHg Heart Rhythm: Sinus Rhythm Technical Quality: Fair Exam Date: 11/07/2022 8:49 AM Exam Location: [facility] Patient Status: Inpatient Admit Date: 11/06/2022 Staff Ordering Physician: Sheri Carias NP A&P Technician: Natalia Casillas RDCS Attending Provider: Hang Mallory MD Referring Physician: Jv NOLEN; Exam Type: CA echo doppler color flow Study Info Indications - Afib Complete two-dimensional, color flow and Doppler transthoracic echocardiogram is performed. Summary 1. Complete two-dimensional, color flow and Doppler transthoracic echocardiogram is performed. 2. Mild concentric left ventricular hypertrophy with vigorous systolic function and grade 1 diastolic noncompliance. 3. Modestly enlarged left atrium. 4. Trivial mitral regurgitation. 5. Mild aortic stenosis valve area 1.5 cm2. 6. Compared with examination from August of 2021, mild progression in no other change. Left Ventricle Left ventricular chamber dimension is normal. Left ventricular systolic function is hyperdynamic, estimated at >70%. There is mild concentric increased left ventricular wall thickness. The left ventricular diastolic function is grade I diastolic dysfunction. Right Ventricle Right ventricular chamber dimension is normal. Left Atria Left atrial chamber dimension is mildly enlarged. Right Atria Right atrial chamber dimension is normal. Aortic Valve The aortic valve is trileaflet. There is moderate aortic valve sclerosis. There is mild aortic valve stenosis with a peak velocity of 249 cm/s, mean gradient of 14 mmHg, and aortic valve area of 1.3 cm2. Pulmonic Valve The pulmonic valve is not well visualized. Mitral Valve The mitral valve has normal leaflets. There is trace mitral valve regurgitation. Tricuspid Valve The tricuspid valve leaflets are normal. Pericardium/Pleural The pericardium appears normal. Aorta The aortic root size at the sinus of Valsalva is normal. Left Ventricular Outflow Tract Name Value Normal LVOT 2D LVOT Diameter 2.0 cm LVOT Doppler LVOT Peak Gradient 5 mmHg LVOT Mean Gradient 3 mmHg LVOT VTI 24 cm LVOT VTI/AV VTI Ratio 0.4 LVOT Stroke Volume 72 ml LVOT CO 4.9 l/min LVOT CI 2.3 l/min/m2 Pulmonic Valve Name Value Normal RVOT Doppler RVOT Peak Gradient 3 mmHg PV Doppler PV Peak Gradient 4 mmHg Mitral Valve -------
[2022-11-07 00:47] LABS: Glucose Point of Care 110 mg/dl (65-105)
[2022-11-07] MEDS: chlordiazePOXIDE (*CRX) 25 MG CAPSULE PO (05:48)
[2022-11-07 05:49] LABS: Sodium Urine Random 32 meq/L
[2022-11-07 06:42] LABS: Basophils Absolute Auto 0.1 K/mm3 (0.0-0.1); Basophils Percent Auto 0.6 % (0.2-1.2); Eosinophils Absolute Auto 0.2 K/mm3 (0-0.3); Eosinophils Percent Auto 2.5 % (0-4.4); Hematocrit 40.6 % (42.0-52.0); Hemoglobin 14.1 g/dL (14.0-18.0); Immature Granulocyte Absolute 0.03 K/mm3 (0.00-0.031); Immature Granulocyte Percent A 0.3 % (0-0.5); Lymphocytes Absolute Auto 1.81 K/mm3 (0.9-3.2); Lymphocytes Percent Auto 19.6 % (18.3-44.2); Mean Corpuscular HGB Conc 34.7 g/dl (32-36); Mean Corpuscular Hemoglobin 32.1 pg (26-34); Mean Corpuscular Volume 92.5 fl (80-100); Mean Platelet Volume 10.7 fl (7.4-10.4); Monocytes Absolute Auto 1.3 K/mm3 (0.1-0.6); Monocytes Percent Auto 13.5 % (2.6-8.5); Neutrophils Absolute Auto 5.9 K/mm3 (1.3-6.7); Neutrophils Percent Auto 63.5 % (45.5-73.1); Platelet Count Result 209 k/mm3 (150-375); Red Blood Count 4.39 M/mm3 (4.6-6.20); White Blood Count 9.3 K/mm3 (4.5-10.0)
[2022-11-07 07:00] LABS: Alanine Aminotransferase 20 U/L (6-50); Albumin Level 3.6 g/dL (3.5-5.1); Alkaline Phosphatase 74 U/L (38-126); Anion Gap 5 mmol/L (8-16); Aspartate Amino Transferase 32 U/L (17-59); Bilirubin,Total 0.7 mg/dL (0.2-1.3); Blood Urea Nitrogen 16 mg/dL (9-20); Calcium 8.1 mg/dL (8.4-10.2); Carbon Dioxide 29 mmol/L (22-30); Chloride 95 mmol/L (98-107); Estimated CRCL calculation 57 ml/min; Estimated Glomerular Filt Rate > 60; Glucose 104 mg/dL (65-110); Magnesium 1.9 mg/dL (1.6-2.3); Sodium 129 mmol/L (137-145)
[2022-11-07 07:59] LABS: Glucose Point of Care 109 mg/dl (65-105)
[2022-11-07] MEDS: lisinopriL 10 MG TABLET 30 MG PO ×2 (09:24→21:31)
[2022-11-07] MEDS: SACCHAROMYCES BOULARDII 250 MG CAPSULE PO ×2 (09:25→12:49)
[2022-11-07] MEDS: ASPIRIN 81 MG ENTERIC TABLET PO (09:25)
[2022-11-07] MEDS: FOLIC ACID 0.4 MG TABLET PO (09:25)
[2022-11-07] MEDS: levETIRAcetam 500 MG TABLET PO ×2 (09:25→21:32)
[2022-11-07] MEDS: OMEGA 3 POLYUNSAT FATTY ACIDS 1 GM CAP PO (09:25)
[2022-11-07] MEDS: METOPROLOL TARTRATE 50 MG TAB PO ×2 (09:25→21:31)
[2022-11-07 11:32] LABS: Lactic Acid Reflex 0.9 mmol/L (0.7-2.0)
[2022-11-07 11:40] LABS: Glucose Point of Care 103 mg/dl (65-105)
[2022-11-07 16:54] LABS: Glucose Point of Care 85 mg/dl (65-105)
--- NOTE | 2022-11-07 16:57 | PM.IMPN ---
Progress Note: A&P Assessment and Plan (1) Pneumonia: Code(s): J18.9 - Pneumonia, unspecified organism Status: Acute Assessment and Plan: -the patient was placed on Levaquin. The CT was read as a mass effect on the left upper lobe bronchi which could be reactive from the pneumonia lymphadenopathy or metastatic disease. The patient will need a follow-up CT in 1 month or a bronchoscopy. -continue with nebulizer treatments. -the patient stated that he was allergic to Levaquin and when asked he stated it caused diarrhea. So will start him on a probiotic as all antibiotics can cause some diarrhea. -sputum and blood cultures are pending. 11/07/2022 interval history: 81-year-old male presented with complaint congestion to his chest and upper respiratory symptoms CT scan of the chest is concerning for pneumonia and patient is being treated with levofloxacin and bronchodilator, there is also concern patient with history of alcohol abuse a place the patient on CIWA protocol will treat with Librium 25 mg every 6 hours as needed, CT scan is also concerning for malignancy will consult nursing services manager for further recommendation, will continue to monitor will have PT OT evaluate the patient, patient's sister is present in the room and answered all her questions. (2) Elevated troponin: Code(s): R77.8 - Other specified abnormalities of plasma proteins Status: Acute Assessment and Plan: -continue to trend. Patient has a chronically elevated troponin. However he is complaining of chest pain when he coughs. (3) Paroxysmal A-fib: Code(s): I48.0 - Paroxysmal atrial fibrillation Status: Acute Assessment and Plan: Continue with aspirin. an echo has been ordered. -the patient is back in sinus rhythm. (4) Mixed hyperlipidemia: Code(s): E78.2 - Mixed hyperlipidemia Status: Chronic Assessment and Plan: The patient is no longer on statin his doctor took him off. -continue with fish oil. Discontinue with heart healthy diet (5) Essential (primary) hypertension: Code(s): I10 - Essential (primary) hypertension Status: Chronic Assessment and Plan: Continue with lisinopril and metoprolol (6) Seizure: Code(s): R56.9 - Unspecified convulsions Status: Chronic Assessment and Plan: Continue with patient's Keppra. I explained to him that he cannot drink alcohol with the seizure medicine. The patient stated that he continues to drink beer without any problems (7) Acute hyponatremia: Code(s): E87.1 - Hypo-osmolality and hyponatremia Status: Acute Assessment and Plan: The patient drinks approximately 6 beers a day. Continue to monitor his sodium level. (8) Alcoholism: Code(s): F10.20 - Alcohol dependence, uncomplicated Status: Acute Assessment and Plan: Continue CIWA protocol. Subjective Date/time seen: 11/07/22 16:57 HPI-Narrative: This is a 81-year-old male patient to has a history of hyperlipidemia seizure disorder hypertension and alcoholism.? The patient came into the emergency room with complaints of congestion to his chest and upper airway.? He has a cough myalgias and chills.? The patient stated that he has been feeling unwell for the last 5 days.? He has nasal congestion and a productive cough.? The patient stated that his chest discomfort is occurring when he coughs forcefully.? His white count is noted to be 11.3.? His sodium was 126.? Lactic is 2.1 blood glucose 153.? Troponin 0.15.? BNP 3830.? Patient is negative for influenza a B RSV and COVID.? Chest x-ray was read as clear lungs.? Chest CTA was read as the following 1. Left upper lobe pneumonia. 2. Left hilar and mediastinal lymphadenopathy with mass effect on the left upper lobe bronchi. These findings may be reactive lymphadenopathy or metastatic disease. Consider bronchoscopy or one-month follow-up chest CT with contrast. 3. No pulmonary embolus.
[2022-11-07 23:18] LABS: Glucose Point of Care 111 mg/dl (65-105)
[2022-11-08] VITALS (15 sets, daily range): BP systolic 134–186; BP diastolic 52–86; PULSE 58–96; RESP 16–20; TEMP 36.1–36.4; O2SAT 96–100
[2022-11-08 04:33] LABS: Hematocrit 40.5 % (42.0-52.0); Hemoglobin 14.1 g/dL (14.0-18.0); Mean Corpuscular HGB Conc 34.8 g/dl (32-36); Mean Corpuscular Hemoglobin 31.3 pg (26-34); Mean Corpuscular Volume 89.8 fl (80-100); Mean Platelet Volume 10.7 fl (7.4-10.4); Platelet Count Result 203 k/mm3 (150-375); Red Blood Count 4.51 M/mm3 (4.6-6.20); Red Cell Distribution Width 11.7 % (11.5-14.5); White Blood Count 9.1 K/mm3 (4.5-10.0)
[2022-11-08 04:49] LABS: Anion Gap 8 mmol/L (8-16); Blood Urea Nitrogen 14 mg/dL (9-20); Carbon Dioxide 26 mmol/L (22-30); Chloride 92 mmol/L (98-107); Estimated CRCL calculation 70 ml/min; Estimated Glomerular Filt Rate > 60; Glucose 98 mg/dL (65-110); Magnesium 1.9 mg/dL (1.6-2.3); Potassium 3.5 mmol/L (3.4-5.0); Sodium 126 mmol/L (137-145)
[2022-11-08] MEDS: METOPROLOL TARTRATE 50 MG TAB PO ×2 (09:55→20:30)
[2022-11-08] MEDS: lisinopriL 10 MG TABLET 30 MG PO ×2 (09:55→20:30)
[2022-11-08] MEDS: OMEGA 3 POLYUNSAT FATTY ACIDS 1 GM CAP PO (09:55)
[2022-11-08] MEDS: SACCHAROMYCES BOULARDII 250 MG CAPSULE PO ×3 (09:55→17:11)
[2022-11-08] MEDS: FOLIC ACID 0.4 MG TABLET PO (09:56)
[2022-11-08] MEDS: ASPIRIN 81 MG ENTERIC TABLET PO (09:56)
[2022-11-08] MEDS: levETIRAcetam 500 MG TABLET PO ×2 (09:56→20:30)
[2022-11-08 12:10] LABS: Glucose Point of Care 126 mg/dl (65-105)
--- NOTE | 2022-11-08 15:15 | PM.IMPN ---
Progress Note: A&P Assessment and Plan (1) Pneumonia: Code(s): J18.9 - Pneumonia, unspecified organism Status: Acute Assessment and Plan: -the patient was placed on Levaquin. The CT was read as a mass effect on the left upper lobe bronchi which could be reactive from the pneumonia lymphadenopathy or metastatic disease. The patient will need a follow-up CT in 1 month or a bronchoscopy. -continue with nebulizer treatments. -the patient stated that he was allergic to Levaquin and when asked he stated it caused diarrhea. So will start him on a probiotic as all antibiotics can cause some diarrhea. -sputum and blood cultures are pending. 11/08/2022 interval history: 81-year-old male presented with complaint congestion to his chest and upper respiratory symptoms CT scan of the chest is concerning for pneumonia and patient is being treated with levofloxacin and bronchodilator, there is also concern patient with history of alcohol abuse a place the patient on CIWA protocol will treat with Librium 25 mg every 6 hours as needed, CT scan is also concerning for malignancy will consult radio script writer for further recommendation, patient has no new complaint will repeat chest x-ray on Thursday and further recommendation to follow, will continue to monitor will have PT OT evaluate the patient, patient's sister is present in the room and answered all her questions. (2) Elevated troponin: Code(s): R77.8 - Other specified abnormalities of plasma proteins Status: Acute Assessment and Plan: -continue to trend. Patient has a chronically elevated troponin. However he is complaining of chest pain when he coughs. (3) Paroxysmal A-fib: Code(s): I48.0 - Paroxysmal atrial fibrillation Status: Acute Assessment and Plan: Continue with aspirin. an echo has been ordered. -the patient is back in sinus rhythm. (4) Mixed hyperlipidemia: Code(s): E78.2 - Mixed hyperlipidemia Status: Chronic Assessment and Plan: The patient is no longer on statin his doctor took him off. -continue with fish oil. Discontinue with heart healthy diet (5) Essential (primary) hypertension: Code(s): I10 - Essential (primary) hypertension Status: Chronic Assessment and Plan: Continue with lisinopril and metoprolol (6) Seizure: Code(s): R56.9 - Unspecified convulsions Status: Chronic Assessment and Plan: Continue with patient's Keppra. I explained to him that he cannot drink alcohol with the seizure medicine. The patient stated that he continues to drink beer without any problems (7) Acute hyponatremia: Code(s): E87.1 - Hypo-osmolality and hyponatremia Status: Acute Assessment and Plan: The patient drinks approximately 6 beers a day. Continue to monitor his sodium level. (8) Alcoholism: Code(s): F10.20 - Alcohol dependence, uncomplicated Status: Acute Assessment and Plan: Continue CIWA protocol. Subjective Date/time seen: 11/08/22 15:15 -the patient was placed on Levaquin. The CT was read as a mass effect on the left upper lobe bronchi which could be reactive from the pneumonia lymphadenopathy or metastatic disease. The patient will need a follow-up CT in 1 month or a bronchoscopy. -continue with nebulizer treatments. -the patient stated that he was allergic to Levaquin and when asked he stated it caused diarrhea. So will start him on a probiotic as all antibiotics can cause some diarrhea. -sputum and blood cultures are pending. 11/08/2022 interval history: 81-year-old male presented with complaint congestion to his chest and upper respiratory symptoms CT scan of the chest is concerning for pneumonia and patient is being treated with levofloxacin and bronchodilator, there is also concern patient with history of alcohol abuse a place the patient on CIWA protocol will treat with Librium 25 mg every 6 hours as needed, CT scan is als
[2022-11-08 17:12] LABS: Glucose Point of Care 96 mg/dl (65-105)
[2022-11-08 20:04] LABS: Glucose Point of Care 126 mg/dl (65-105)
[2022-11-08] MEDS: hydrALAZINE HCL 20 MG/ML VIAL 10 MG IV PUSH (23:23)
[2022-11-09] VITALS (14 sets, daily range): BP systolic 132–159; BP diastolic 54–76; PULSE 58–78; RESP 14–20; TEMP 36.1–37.1; O2SAT 93–100
[2022-11-09 05:23] LABS: Hemoglobin 14.3 g/dL (14.0-18.0); Mean Corpuscular HGB Conc 35.8 g/dl (32-36); Mean Corpuscular Volume 89.5 fl (80-100); Mean Platelet Volume 10.7 fl (7.4-10.4); Platelet Count Result 226 k/mm3 (150-375); Red Blood Count 4.47 M/mm3 (4.6-6.20); Red Cell Distribution Width 11.8 % (11.5-14.5); White Blood Count 10.8 K/mm3 (4.5-10.0)
[2022-11-09 05:35] LABS: Anion Gap 5 mmol/L (8-16); Blood Urea Nitrogen 16 mg/dL (9-20); Calcium 7.9 mg/dL (8.4-10.2); Carbon Dioxide 27 mmol/L (22-30); Chloride 93 mmol/L (98-107); Estimated CRCL calculation 63 ml/min; Estimated Glomerular Filt Rate > 60; Glucose 107 mg/dL (65-110); Magnesium 1.8 mg/dL (1.6-2.3); Potassium 3.7 mmol/L (3.4-5.0); Sodium 125 mmol/L (137-145)
[2022-11-09 08:16] LABS: Glucose Point of Care 131 mg/dl (65-105)
[2022-11-09] MEDS: lisinopriL 10 MG TABLET 30 MG PO ×2 (09:39→20:23)
[2022-11-09] MEDS: METOPROLOL TARTRATE 50 MG TAB PO ×2 (09:40→20:23)
[2022-11-09] MEDS: OMEGA 3 POLYUNSAT FATTY ACIDS 1 GM CAP PO (09:40)
[2022-11-09] MEDS: levETIRAcetam 500 MG TABLET PO ×2 (09:40→20:23)
[2022-11-09] MEDS: FOLIC ACID 0.4 MG TABLET PO (09:40)
[2022-11-09] MEDS: SACCHAROMYCES BOULARDII 250 MG CAPSULE PO ×3 (09:40→18:38)
[2022-11-09] MEDS: ASPIRIN 81 MG ENTERIC TABLET PO (09:42)
[2022-11-09 12:10] LABS: Glucose Point of Care 125 mg/dl (65-105)
--- NOTE | 2022-11-09 13:50 | PM.IMPN ---
Progress Note: A&P Assessment and Plan (1) Pneumonia: Code(s): J18.9 - Pneumonia, unspecified organism Status: Acute Assessment and Plan: -the patient was placed on Levaquin. The CT was read as a mass effect on the left upper lobe bronchi which could be reactive from the pneumonia lymphadenopathy or metastatic disease. The patient will need a follow-up CT in 1 month or a bronchoscopy. -continue with nebulizer treatments. -the patient stated that he was allergic to Levaquin and when asked he stated it caused diarrhea. So will start him on a probiotic as all antibiotics can cause some diarrhea. -sputum and blood cultures are pending. 11/09/2022 interval history: 81-year-old male presented with complaint congestion to his chest and upper respiratory symptoms CT scan of the chest is concerning for pneumonia and patient is being treated with levofloxacin and bronchodilator, there is also concern patient with history of alcohol abuse a placed the patient on CIWA protocol will treat with Librium 25 mg every 6 hours as needed, however patient CIWA score have been low, will stop SIWA protocol, CT scan is also concerning for malignancy will consult radio sales account executive for further recommendation, patient has no new complaint will repeat chest x-ray on Thursday and further recommendation to follow, will continue to monitor will have PT OT evaluate the patient, patient's sister is present in the room and answered all her questions. (2) Elevated troponin: Code(s): R77.8 - Other specified abnormalities of plasma proteins Status: Acute Assessment and Plan: -continue to trend. Patient has a chronically elevated troponin. However he is complaining of chest pain when he coughs. (3) Paroxysmal A-fib: Code(s): I48.0 - Paroxysmal atrial fibrillation Status: Acute Assessment and Plan: Continue with aspirin. an echo has been ordered. -the patient is back in sinus rhythm. (4) Mixed hyperlipidemia: Code(s): E78.2 - Mixed hyperlipidemia Status: Chronic Assessment and Plan: The patient is no longer on statin his doctor took him off. -continue with fish oil. Discontinue with heart healthy diet (5) Essential (primary) hypertension: Code(s): I10 - Essential (primary) hypertension Status: Chronic Assessment and Plan: Continue with lisinopril and metoprolol (6) Seizure: Code(s): R56.9 - Unspecified convulsions Status: Chronic Assessment and Plan: Continue with patient's Keppra. I explained to him that he cannot drink alcohol with the seizure medicine. The patient stated that he continues to drink beer without any problems (7) Acute hyponatremia: Code(s): E87.1 - Hypo-osmolality and hyponatremia Status: Acute Assessment and Plan: The patient drinks approximately 6 beers a day. Continue to monitor his sodium level. (8) Alcoholism: Code(s): F10.20 - Alcohol dependence, uncomplicated Status: Acute Assessment and Plan: Continue CIWA protocol. Subjective Date/time seen: 11/09/22 13:50 -the patient was placed on Levaquin. The CT was read as a mass effect on the left upper lobe bronchi which could be reactive from the pneumonia lymphadenopathy or metastatic disease. The patient will need a follow-up CT in 1 month or a bronchoscopy. -continue with nebulizer treatments. -the patient stated that he was allergic to Levaquin and when asked he stated it caused diarrhea. So will start him on a probiotic as all antibiotics can cause some diarrhea. -sputum and blood cultures are pending. 11/09/2022 interval history: 81-year-old male presented with complaint congestion to his chest and upper respiratory symptoms CT scan of the chest is concerning for pneumonia and patient is being treated with levofloxacin and bronchodilator, there is also concern patient with history of alcohol abuse a placed the patient on CIWA protocol
[2022-11-09 16:16] LABS: Glucose Point of Care 134 mg/dl (65-105)
[2022-11-09 18:27] LABS: Levetiracetam Keppra 6.1 mcg/mL (6.0-46.0)
[2022-11-09 19:35] LABS: Glucose Point of Care 138 mg/dl (65-105)
[2022-11-10 03:37] VITALS: PULSE 62; RESP 20; O2SAT 97
[2022-11-10 03:42] VITALS: BP 174/79; PULSE 62; RESP 20; TEMP 36.2; O2SAT 97
[2022-11-10 04:51] VITALS: BP 136/44
[2022-11-10 04:57] LABS: Hematocrit 40.5 % (42.0-52.0); Hemoglobin 14.3 g/dL (14.0-18.0); Mean Corpuscular HGB Conc 35.3 g/dl (32-36); Mean Corpuscular Hemoglobin 31.4 pg (26-34); Mean Corpuscular Volume 88.8 fl (80-100); Mean Platelet Volume 10.9 fl (7.4-10.4); Platelet Count Result 242 k/mm3 (150-375); Red Blood Count 4.56 M/mm3 (4.6-6.20); Red Cell Distribution Width 11.7 % (11.5-14.5); White Blood Count 10.9 K/mm3 (4.5-10.0)
[2022-11-10 05:12] LABS: Anion Gap 5 mmol/L (8-16); Blood Urea Nitrogen 15 mg/dL (9-20); Calcium 8.1 mg/dL (8.4-10.2); Carbon Dioxide 27 mmol/L (22-30); Chloride 90 mmol/L (98-107); Estimated CRCL calculation 70 ml/min; Estimated Glomerular Filt Rate > 60; Glucose 109 mg/dL (65-110); Potassium 3.8 mmol/L (3.4-5.0); Sodium 122 mmol/L (137-145)
[2022-11-10 07:59] LABS: Glucose Point of Care 103 mg/dl (65-105)
[2022-11-10 08:00] VITALS: O2SAT 97
[2022-11-10 08:03] VITALS: BP 155/58; PULSE 68; RESP 20; TEMP 36.3; O2SAT 97
--- NOTE | 2022-11-10 08:20 | PM.CNPUL ---
Assessment and Plan Assessment and plan (1) Pneumonia: Code(s): J18.9 - Pneumonia, unspecified organism Status: Acute Assessment and Plan: Patient presents with 5 days of an acute illness with cough, chills, myalgias, congestion and a left lobe upper lobe pneumonia on his CT scan. In addition patient has left hilar and mediastinal lymphadenopathy with some compression on the left upper lobe bronchus. Clinically the patient has responded to Levaquin and today is day 5. Patient has a 43 pack year tobacco use and quit in 1998. He has no weight loss. 2/ Patient states he is improved. His cough, chest congestion and chest pressure have resolved. His room air saturations are 98%. His white blood cell count is 10.9, is creatinine is 0.8. His chest x-ray today shows no active disease. His sodium is 122. patient states he has intermittent sinus congestion throughout the year with a seasonal component. From a pulmonary perspective patient is ready to be discharged on these pulmonary medications. Levaquin 750 mg p.o. q.day x9 days. Flonase 1 spray each nares twice a day Claritin 10 mg p.o. q.day Patient will need repeat imaging by CT scan in 4-6 weeks to reassess his left upper lobe infiltrate as well as is left hilar and left mediastinal lymphadenopathy. Patient to follow up in the Pulmonary Clinic in 4 weeks, I gave him our business card and informed our plant reliability engineer. Discussed with Dr. Morales, will sign off, call with questions History of Present Illness History of Present Illness Consult date: 11/10/22 Chief complaint: pneumonia,sepsis,hyponatremia,paroxysmal atrial fi Narrative: 11/10/2021: New pulmonary consult for pneumonia with lymphadenopathy 81-year-old with a history of hypertension, hyperlipidemia, hypothyroidism, seizures on Keppra presented to the emergency department on 11/06/2021 with cough, myalgias, chills for approximately 5 days. He has constant rhinorrhea and sinus congestion and this was worsened than usual. In the emergency room his room air saturations were 100 he was in atrial fibrillation with rapid ventricular response, white blood cell count was 11.4, creatinine was 1.2, BNP was 38 30, troponin was positive, COVID influenza and RSV swabs were negative. Patient had a chest x-ray with no apparent cardiopulmonary disease. CT angiogram of the chest showed no PE, left upper lobe tree-in-bud opacities in in for pneumonia, left mediastinal and hilar lymphadenopathy with compression on the left UL bronchus. Patient was treated with Levaquin and bronchodilators. At baseline patient states he can walk 1 block, he has no respiratory limitations in his activity of daily living. He stops after 1 block becaus of leg and back pain. Patient smoked 1 pack a day from age [age] at 43 pack years. 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 11/10 Patient states he is improved. His cough, chest congestion and chest pressure have resolved. His room air saturations are 98%. His white blood cell count is 10.9, is creatinine is 0.8. His chest x-ray today shows no active disease. His sodium is 122. DATA: EXAMINATION: XR chest 2V DATE: 11/10/2022 08:09 INDICATION: Pneumonia TECHNIQUE: PA and lateral views of the chest are obtained. COMPARISON: 11/06/2022 FINDINGS: The lungs are free of acute opacities. No pleural effusion or pneumothorax. The cardiomediastinal silhouette is normal. There is severe thoracic spondylosis. Again noted is chronic height loss of multiple thoracic vertebral bodies. IMPRESSION: 1. No acute cardiopulmonary abnormality. CT chest 07/21/2017: FINDINGS: CHEST CT: Calcified right lower lobe pulmonary granuloma and calcified right hilar nodes, consistent with old pulmonary granulomatous disease. Minimal bilateral apical scarring. Mild dependent atelectasis
[2022-11-10 08:34] VITALS: PULSE 68
[2022-11-10] MEDS: levETIRAcetam 500 MG TABLET PO (08:34)
[2022-11-10] MEDS: SACCHAROMYCES BOULARDII 250 MG CAPSULE PO ×2 (08:34→13:08)
[2022-11-10] MEDS: METOPROLOL TARTRATE 50 MG TAB PO (08:34)
[2022-11-10] MEDS: FOLIC ACID 0.4 MG TABLET PO (08:34)
[2022-11-10] MEDS: lisinopriL 10 MG TABLET 30 MG PO (08:34)
[2022-11-10] MEDS: OMEGA 3 POLYUNSAT FATTY ACIDS 1 GM CAP PO (08:34)
[2022-11-10] MEDS: ASPIRIN 81 MG ENTERIC TABLET PO (08:34)
[2022-11-10] MEDS: guaiFENesin 12 HR 600 MG TABCR PO (10:10)
[2022-11-10 11:45] LABS: Glucose Point of Care 110 mg/dl (65-105)
--- NOTE | 2022-11-10 12:55 | PM.DS ---
DS: Admitting Diagnosis Discharge Date 11/10/2022 Admitting Diagnosis Cough with upper respiratory infection DS: Discharge Diagnosis Discharge Diagnosis (1) Pneumonia: Code(s): J18.9 - Pneumonia, unspecified organism Status: Acute Assessment and Plan: -the patient was placed on Levaquin. The CT was read as a mass effect on the left upper lobe bronchi which could be reactive from the pneumonia lymphadenopathy or metastatic disease. The patient will need a follow-up CT in 1 month or a bronchoscopy. -continue with nebulizer treatments. -the patient stated that he was allergic to Levaquin and when asked he stated it caused diarrhea. So will start him on a probiotic as all antibiotics can cause some diarrhea. -sputum and blood cultures are pending. 11/09/2022 interval history: 81-year-old male presented with complaint congestion to his chest and upper respiratory symptoms CT scan of the chest is concerning for pneumonia and patient is being treated with levofloxacin and bronchodilator, there is also concern patient with history of alcohol abuse a placed the patient on CIWA protocol will treat with Librium 25 mg every 6 hours as needed, however patient CIWA score have been low, will stop SIWA protocol, CT scan is also concerning for malignancy will consult locker attendant for further recommendation, patient has no new complaint will repeat chest x-ray on Thursday and further recommendation to follow, will continue to monitor will have PT OT evaluate the patient, patient's sister is present in the room and answered all her questions. (2) Elevated troponin: Code(s): R77.8 - Other specified abnormalities of plasma proteins Status: Acute Assessment and Plan: -continue to trend. Patient has a chronically elevated troponin. However he is complaining of chest pain when he coughs. (3) Paroxysmal A-fib: Code(s): I48.0 - Paroxysmal atrial fibrillation Status: Acute Assessment and Plan: Continue with aspirin. an echo has been ordered. -the patient is back in sinus rhythm. (4) Mixed hyperlipidemia: Code(s): E78.2 - Mixed hyperlipidemia Status: Chronic Assessment and Plan: The patient is no longer on statin his doctor took him off. -continue with fish oil. Discontinue with heart healthy diet (5) Essential (primary) hypertension: Code(s): I10 - Essential (primary) hypertension Status: Chronic Assessment and Plan: Continue with lisinopril and metoprolol (6) Seizure: Code(s): R56.9 - Unspecified convulsions Status: Chronic Assessment and Plan: Continue with patient's Keppra. I explained to him that he cannot drink alcohol with the seizure medicine. The patient stated that he continues to drink beer without any problems (7) Acute hyponatremia: Code(s): E87.1 - Hypo-osmolality and hyponatremia Status: Acute Assessment and Plan: The patient drinks approximately 6 beers a day. Continue to monitor his sodium level. (8) Alcoholism: Code(s): F10.20 - Alcohol dependence, uncomplicated Status: Acute Assessment and Plan: Continue CIWA protocol. DS: Summary Hospital Course Reason for hospitalization: Chief Complaint: Cough with upper respiratory infection Narrative: This is a 81-year-old male patient to has a history of hyperlipidemia seizure disorder hypertension and alcoholism.? The patient came into the emergency room with complaints of congestion to his chest and upper airway.? He has a cough myalgias and chills.? The patient stated that he has been feeling unwell for the last 5 days.? He has nasal congestion and a productive cough.? The patient stated that his chest discomfort is occurring when he coughs forcefully.? His white count is noted to be 11.3.? His sodium was 126.? Lactic is 2.1 blood glucose 153.? Troponin 0.15.? BNP 3830.? Patient is negative for influenza a B RSV and COVID.? Chest x-ra
[2022-11-11 03:44] LABS: Legionella pneumophila Ag Ur Not Detected (Not Detected)
[2022-11-11 15:36] LABS: Osmolality, Urine 589 mOsm/kg (50-1200)
== END 2022-11-10 14:50 | disposition home or self-care (01) | DRG 194 ==
LOC: ANHED 15:33 → ANHIMU 16:20
PROVIDERS: Emergency Medicine; Nurse Practitioner; Admitting Provider Internal Medicine; Emergency Provider Emergency Medicine; PCP Internal Medicine; Visit Provider Family Medicine
DX: J18.9 Pneumonia, unspecified organism (principal); E87.1 Hypo-osmolality and hyponatremia; I48.0 Paroxysmal atrial fibrillation; I10 Essential (primary) hypertension; E78.5 Hyperlipidemia, unspecified; R77.8 Other specified abnormalities of plasma proteins; R59.0 Localized enlarged lymph nodes; G40.909 Epilepsy, unspecified, not intractable, without status epilepticus; F10.20 Alcohol dependence, uncomplicated; Z20.822 Contact with and (suspected) exposure to COVID-19; Z87.891 Personal history of nicotine dependence; Z79.82 Long term (current) use of aspirin; Z86.010 Personal history of colon polyps
CPT/HCPCS: 36415; 71045; 71046; 71275; 80048; 80053; 80177; 82948; 83605; 83735; 83880; 83935; 84300; 84443; 84484; 85025; 85027; 87040; 87449; 87637; 93005; 93306; 96361; 96365; 96366; 99285; A9270; G0378; J0360; J1956; J7040; Q9967

== ENCOUNTER 2022-12-24 15:05 | Outpatient (CLI) | payer MEDICARE, SELFPAY ==
--- NOTE | ~2022-12-24 | CT_ITS ---
CT Scan of the Chest without Contrast: Clinical Indication: Left upper lobe mass effect Technique: Contiguous sections were acquired throughout the chest without intravenous contrast. Dose reduction technique was used on this scan by utilizing automated exposure control and iterative recon struction technique. The dose-length product (DLP) was 468.30 mGy-cm. COMPARISON: 11/06/2022 Findings: There is no evidence of any significant mediastinal, hilar or axillary lymphadenopathy. Mild coronary artery calcifications are present. There is no evidence of pleural or pericardial effusion. There are minimal residual groundglass opacities and/or tree-in-bud opacities in the anterior left up per lobe. Images through the upper abdomen reveal no abnormalities. Stable compression fractures T4, T5, T11, a nd T12 Impression: Minimal residual groundglass opacities and/or tree-in-bud opacities in the anterior left upper lobe, compatible with resolving pneumonia. Left mediastinal/hilar lymph nodes are probably decreased in size from prior exam, compatible with re solving inflammatory/reactive lymph nodes. Stable compression fractures in the thoracic spine, as noted above. Reviewed, dictated and finalized at location . Impression: Minimal residual groundglass opacities and/or tree-in-bud opacities in the ante rior left upper lobe, compatible with resolving pneumonia. Left mediastinal/hilar lymph nodes are probably decreased in size from prior ex am, compatible with resolving inflammatory/reactive lymph nodes. Stable compression fractures in the thoracic spine, as noted above.
== END 2022-12-24 15:06 | disposition home or self-care (01) ==
PROVIDERS: PCP Internal Medicine; Visit Provider Nurse Practitioner Family
DX: J18.9 Pneumonia, unspecified organism (principal); R59.1 Generalized enlarged lymph nodes; S22.040D Wedge compression fracture of fourth thoracic vertebra, subsequent encounter for fracture with routine healing; S22.050D Wedge compression fracture of T5-T6 vertebra, subsequent encounter for fracture with routine healing; S22.080D Wedge compression fracture of T11-T12 vertebra, subsequent encounter for fracture with routine healing; X58.XXXD Exposure to other specified factors, subsequent encounter
CPT/HCPCS: 71250

== ENCOUNTER 2023-08-18 12:15 | Emergency (ER) | payer MEDICARE, SELFPAY ==
[2023-08-18 12:25] VITALS: BP 167/74; PULSE 60; RESP 20; TEMP 36.6; O2SAT 99
--- NOTE | 2023-08-18 12:26 | ED.GENADULT ---
HPI - General Adult General Chief complaint: Chest Pain Stated complaint: Chest Wall Pain Time Seen by Provider: 08/18/23 12:26 Source: patient, RN notes reviewed and old records reviewed Mode of arrival: ambulatory Limitations: no limitations History of Present Illness HPI narrative: 82-year-old male presents to the [facility] with complaints of intermittent chest pressure, worse at night for the last 2 night. No treatment prior to arrival Patient reports that he always has some chest congestion and sinus congestion but states the chest pressure has gotten worse the last 2 nights. States that it comes and goes, worse at night. Has an associated shortness of breath for when he has chest pressure. Denies any nausea or vomiting. Denies any swelling. Denies fevers Patient, poor historian, denied any history of hypertension, AFib. Per medical record patient does have a history Denies any pain or discomfort at this time Onset (ago): day(s) (2) Treatments prior to arrival: none Related Data Home Medications Medication Instructions Recorded Confirmed aspirin 81 mg tablet,delayed 81 mg PO DAILY 09/02/21 06/03/23 release (Adult Aspirin Regimen) folic acid 400 mcg tablet 0.4 mg PO DAILY 09/02/21 06/03/23 omega-3 fatty acids 1,000 mg 1,000 mg PO DAILY 09/02/21 06/03/23 capsule (Fish Oil Concentrate) Allergies Allergy/AdvReac Type Severity Reaction Status Date / Time amoxicillin Allergy Unknown Diarrhea Verified 06/03/23 13:10 Penicillins Allergy Unknown Rash Verified 08/18/23 12:33 phenylephrine Allergy Unknown Diarrhea Verified 06/03/23 13:10 levofloxacin AdvReac Unknown Diarrhea Verified 06/03/23 13:10 Review of Systems Review of Systems: All systems reviewed & are unremarkable except as noted in HPI and below Constitutional: Constitutional: Reports no additional constitutional complaints Eyes: Eyes: Reports no additional eye complaints ENT: Reports system reviewed and no additional complaints, except as documented Cardiovascular: Cardiovascular: Reports as per HPI, Reports chest pain, Denies pedal edema, Reports dyspnea and Reports orthopnea Respiratory: Respiratory: Reports as per HPI, Reports chest congestion, Reports cough and Reports dyspnea Gastrointestinal: Gastrointestinal: Reports no additional gastrointestinal complaints, Denies abdominal pain, Denies nausea and Denies vomiting Musculoskeletal: Musculoskeletal: Reports no additional musculoskeletal complaints Integumentary/Breasts: Skin/Breast: Reports system reviewed and no additional complaints, except as docu Neurologic: Reports system reviewed and no additional complaints, except as documented Psychiatric: Psychiatric: Reports no additional psychiatric complaints Allergic/Immunologic: Allergic/Immunologic: Reports no additional allergic/immunologic complaints PMFSH Past Medical History Medical History COVID-19 Essential (primary) hypertension Mixed hyperlipidemia Paroxysmal A-fib Seizure Surgical History Surgical History H/O abdominal surgery Abdominal umbilical hernia repair with multiple complications and least 2 more surgeries after that. H/O cataract extraction H/O colonoscopy with polypectomy H/O nasal septoplasty Sinus surgery H/O sinus surgery X3 History of removal of pigmented skin lesion History of tonsillectomy and adenoidectomy Family History Family History Father Hypertension Cerebrovascular accident Mother Family history of congestive heart failure Family history of heart disease in male family member before age 55 Other Family history of allergic disorder Family history of arthritis Social History Social History Social History: The patient lives with his . He has 4 children. He estefany
--- NOTE | 2023-08-18 12:29 | ECG_ITS ---
Rate CT QRSd QT QTc P QRS T Severity 59 163 96 397 394 38 -4 50 Borderline ECG SINUS BRADYCARDIA INCOMPLETE RIGHT BUNDLE BRANCH BLOCK PEAKED T WAVES- CONSIDER HYPERKALEMIA BASELINE ARTIFACT- I, II, III, AVR, AVL, AVF ABNORMAL ECG COMPARED TO ECG 11/06/2022 14:26:00 SINUS BRADYCARDIA NOW PRESENT PEAKED T WAVES NOW PRESENT Electronically Signed On 08-18-2023 15:10:53 GAMING TABLE OPERATOR by Santy HUBBARD
== END 2023-08-18 12:39 | disposition short-term general hospital (02) ==
PROVIDERS: Emergency Provider Nurse Practitioner; PCP Family Medicine
DX: R07.89 Other chest pain (principal); R06.02 Shortness of breath; I48.0 Paroxysmal atrial fibrillation; Z87.891 Personal history of nicotine dependence; I10 Essential (primary) hypertension; E78.2 Mixed hyperlipidemia; Z86.16 Personal history of COVID-19; Z79.82 Long term (current) use of aspirin
CPT/HCPCS: 93005; 99213; G0463

== ENCOUNTER 2023-08-18 13:04 | Inpatient (IN) | payer MEDICARE, SELFPAY ==
[2023-08-18] VITALS (28 sets, daily range): BP systolic 106–217; BP diastolic 52–105; PULSE 62–70; RESP 14–30; TEMP 36.3–36.6; O2SAT 93–100; BMI 31.7
--- NOTE | ~2023-08-18 | NM_ITS ---
EXAMINATION: NM rossi stress w perfusion DATE: 08/24/2023 11:59 INDICATION: Chest pain TECHNIQUE: Rest images were obtained following intravenous administration of 9 mCi Tc99m tetrofosmin (Myoview). The patient was infused intravenously with Lexiscan (Regadenoson). Then, 28.8 mCi Tc99m te trofosmin (Myoview) was administered intravenously, and stress images were obtained. Data was reconst ructed into short axis and horizontal and vertical long axis SPECT images. Gated SPECT images were al so obtained. COMPARISON: None. FINDINGS: There is no definite reversible or fixed perfusion abnormality to suggest ischemia or infar ction. There is normal left ventricular chamber size, wall motion and ejection fraction. Left ventr icular ejection fraction measures >70%. IMPRESSION: 1. Normal myocardial perfusion at rest and during stress. 2. Left ventricular ejection fraction measuring >70%. Reviewed, dictated and finalized at location A. LEVEL PROVIDER
--- NOTE | ~2023-08-18 | MR_ITS ---
MRA HEAD History: Altered mental status Technique: 3D time of flight MRA of the head is performed. Findings: The right and left distal vertebral arteries and the basilar and posterior cerebral arterie s are normal. Right and left distal internal carotid arteries and anterior and middle cerebral arteri es are normal. There is no aneurysm, stenosis, or occlusion. Impression: No occlusion, stenosis, or aneurysm. Reviewed, dictated and finalized at location . AGE BROKER DEVELOPER Impression: No occlusion, stenosis, or aneurysm.
--- NOTE | ~2023-08-18 | MR_ITS ---
MRI of the brain Clinical History: Altered mental status Technique: Axial and sagittal T1-weighted images were acquired. These were followed by axial T2-weigh augustine, diffusion weighted, gradient, and FLAIR images. Findings: There is focal restricted diffusion in the left occipital lobe, consistent with acute infar ct (diffusion images 10-11). There is moderate to severe chronic white matter disease throughout the periventricular white matter otherwise. No intracranial hemorrhage identified. Ventricles and subarachnoid spaces are mildly dilated. Orbits are unremarkable. There is mild right m axillary and bilateral ethmoid sinus disease. Remaining paranasal sinuses are clear. There is fluid i n bilateral mastoid air cells. Major intracranial flow voids appear intact. Sagittal midline structures are intact. 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 No intracranial hemorrhage. Moderate to severe chronic microvascular ischemic change in the periventricular white matter. Sinus disease and bilateral mastoid effusions, as above. Reviewed, dictated and finalized at [facility]. WASHER
--- NOTE | ~2023-08-18 | XR_ITS ---
EXAMINATION: XR chest 2V Exam Date/Time: 08/22/2023 17:35 DATA CONTROL ASSISTANT HISTORY: 24 hours post pacemaker insertion Comparison: 08/21/2023. RESULT: Lines, tubes, and devices: Left chest pacer with intact leads. Lungs and pleura: Clear. Cardiomediastinal silhouette: Stable. Other: No acute osseous or upper abdominal finding. IMPRESSION: No acute cardiopulmonary process. Reviewed, dictated and finalized at location K. CONTROL ASSISTANT
--- NOTE | ~2023-08-18 | CT_ITS ---
EXAMINATION: CT brain wo con DATE: 08/19/2023 19:28 INDICATION: aphasia . TECHNIQUE: Computed tomography (CT) of the head was performed without intravenous contrast. The mA wa s adjusted according to patient size. Iterative reconstruction technique was employed. The dose-lengt h product was 605.33 mGy-cm. COMPARISON: CT brain 08/22/2021. FINDINGS: No acute intracranial hemorrhage or extra-axial fluid collection. No hydrocephalus, mass, or herniation. No acute ischemic infarct. Unremarkable dural venous sinus attenuation. No acute osseous abnormality. Pansinus thickening, bilateral mastoid fluid. Bilateral antral window procedures. Moderate atrophy and chronic white matter change. Atherosclerotic intracranial calcification. Bilater al lens replacements. IMPRESSION: No acute intracranial process. Reviewed, dictated and finalized at location K. IFIED ADAPTIVE PHYSICAL EDUCATOR
--- NOTE | ~2023-08-18 | XR_ITS ---
EXAMINATION: XR chest 1V portable DATE: 08/21/2023 15:45 INDICATION: Pacer placement. TECHNIQUE: A single frontal view of the chest was obtained. COMPARISON: Chest 2 views 08/18/2023 FINDINGS: There is no pneumonia, pleural effusion, or pneumothorax. The heart size is normal. There i s a left chest wall pacer with leads in the right atrium and right ventricle. IMPRESSION: 1. No acute cardiopulmonary disease. Reviewed, dictated and finalized at location A. HEADER
--- NOTE | ~2023-08-18 | XR_ITS ---
EXAMINATION: XR chest 2V DATE: 08/18/2023 14:10 INDICATION: Chest pressure. TECHNIQUE: Frontal and lateral views of the chest were obtained. COMPARISON: Chest 2 views 11/10/2022 FINDINGS: Calcified right lung nodules and calcified right hilar lymph nodes are consistent with old granulomatous disease. There is mild atelectasis at right lung base. No pleural effusion or pneumotho rax. The heart size is normal. There are multiple chronic compression fractures in thoracic spine. IMPRESSION: 1. Mild atelectasis at right lung base. Reviewed, dictated and finalized at location A. SETTER
--- NOTE | 2023-08-18 13:17 | ECG_ITS ---
Rate AR QRSd QT QTc P QRS T Severity 59 177 84 393 390 18 -6 48 Abnormal ECG SINUS BRADYCARDIA POSSIBLE LEFT ATRIAL ENLARGEMENT INCOMPLETE RIGHT BUNDLE BRANCH BLOCK VOLTAGE CRITERIA FOR LVH BORDERLINE ECG COMPARED TO ECG 11/06/2022 14:26:00 SINUS BRADYCARDIA NOW PRESENT INCOMPLETE RIGHT BUNDLE-BRANCH BLOCK NOW PRESENT Electronically Signed On 08-18-2023 14:59:55 TRAFFIC INSPECTOR by Santy HUBBARD
--- NOTE | 2023-08-18 13:22 | ED.GENADULT ---
HPI - General Adult General Chief complaint: Chest Pain <Betty Oliva February INDUSTRIAL TRAINING SPECIALIST - Last Filed: 08/18/23 13:24> Stated complaint: chest pressure <Betty Oliva February INDUSTRIAL TRAINING SPECIALIST - Last Filed: 08/18/23 13:24> Time Seen by Provider: 08/18/23 16:01 <Betty Oliva February INDUSTRIAL TRAINING SPECIALIST - Last Filed: 08/18/23 13:24> History of Present Illness HPI narrative: Andre Finley is an 82 y/o male who presents wt reports of 2 days of chest pressure. He states it comes and goes, worse at night. He states he has felt congested and has been coughing up yellow sputum for about 2 days. Denies fever/chills/ SOB / <Betty Oliva February, INDUSTRIAL TRAINING SPECIALIST - Last Filed: 08/18/23 13:24> Andre Finley is an 82 y/o male who presents with reports of 2 days of chest pressure. He states it comes and goes, worse at night. He states he has felt congested and has been coughing up yellow sputum for about 2 days. Denies fever/chills/ SOB. Patient admits that he does have a long history of sinusitis in thinks that they are acting up and initially thought that this was the reason for his chest pressure 2 days ago, however, since it persisted he decided to come in today and be evaluated. Patient now states that his chest pressure has resolved. Patient denies any nausea, vomiting, abdominal pain, dysuria, hematuria, constipation, diarrhea, melena and hematochezia. He also denies any headaches, dizziness, lightheadedness, blurry visions, dizziness, focal weakness, numbness and or tingling. There are no other modifying, alleviating, or precipitating factors at this time. <Millie Durham MD - Last Filed: 08/18/23 17:18> Related Data Home medications: Home Medications Medication Instructions Recorded Confirmed aspirin 81 mg tablet,delayed 81 mg PO DAILY 09/02/21 06/03/23 release (Adult Aspirin Regimen) folic acid 400 mcg tablet 0.4 mg PO DAILY 09/02/21 06/03/23 omega-3 fatty acids 1,000 mg 1,000 mg PO DAILY 11/29/21 08/30/23 capsule (Fish Oil Concentrate) <Betty Oliva February,N - Last Filed: 08/18/23 13:24> Allergies/adverse reactions: Allergies Allergy/AdvReac Type Severity Reaction Status Date / Time amoxicillin Allergy Unknown Diarrhea Verified 06/03/23 13:10 Penicillins Allergy Unknown Rash Verified 08/18/23 12:33 phenylephrine Allergy Unknown Diarrhea Verified 06/03/23 13:10 levofloxacin AdvReac Unknown Diarrhea Verified 06/03/23 13:10 <Betty Oliva February, - Last Filed: 08/18/23 13:24> Review of Systems Review of Systems: All systems are reviewed and are negative unless stated otherwise in the HPI. <Millie Durham MD - Last Filed: 08/18/23 17:18> PMFSH Past Medical History Medical History: Medical History COVID-19 Essential (primary) hypertension Mixed hyperlipidemia Paroxysmal A-fib Seizure <Betty Oliva February, - Last Filed: 08/18/23 13:24> Surgical History Surgical History: Surgical History H/O abdominal surgery Abdominal umbilical hernia repair with multiple complications and least 2 more surgeries after that. H/O cataract extraction H/O colonoscopy with polypectomy H/O nasal septoplasty Sinus surgery H/O sinus surgery X3 History of removal of pigmented skin lesion History of tonsillectomy and adenoidectomy <Betty Oliva February, - Last Filed: 08/18/23 13:24> Family History Family History: Family History Father Hypertension Cerebrovascular accident Mother Family history of congestive heart failure Family history of heart disease in male family member before age 55 Other Family history of allergic disorder Family history of arthritis <Betty Oliva February, - Last Filed: 08/18/23 13:24> Social History Social History: Social History Social History: The patient lives with his . He h
[2023-08-18 13:54] LABS: Basophils Absolute Auto 0.1 K/mm3 (0.0-0.1); Basophils Percent Auto 0.5 % (0.2-1.2); Eosinophils Absolute Auto 0.2 K/mm3 (0-0.3); Eosinophils Percent Auto 1.8 % (0-4.4); Hematocrit 42.2 % (42.0-52.0); Hemoglobin 14.2 g/dL (14.0-18.0); Immature Granulocyte Absolute 0.04 K/mm3 (0.00-0.031); Immature Granulocyte Percent A 0.3 % (0-0.5); Lymphocytes Absolute Auto 2.77 K/mm3 (0.9-3.2); Lymphocytes Percent Auto 24.2 % (18.3-44.2); Mean Corpuscular HGB Conc 33.6 g/dl (32-36); Mean Corpuscular Hemoglobin 31.5 pg (26-34); Mean Corpuscular Volume 93.6 fl (80-100); Mean Platelet Volume 10.7 fl (7.4-10.4); Monocytes Absolute Auto 1.2 K/mm3 (0.1-0.6); Monocytes Percent Auto 10.6 % (2.6-8.5); Neutrophils Absolute Auto 7.2 K/mm3 (1.3-6.7); Neutrophils Percent Auto 62.6 % (45.5-73.1); Platelet Count Result 280 k/mm3 (150-375); Red Blood Count 4.51 M/mm3 (4.6-6.20); Red Cell Distribution Width 12.2 % (11.5-14.5); White Blood Count 11.5 K/mm3 (4.5-10.0)
[2023-08-18 14:02] LABS: Alanine Aminotransferase 22 U/L (6-50); Alkaline Phosphatase 73 U/L (38-126); Anion Gap 9 mmol/L (8-16); Aspartate Amino Transferase 36 U/L (17-59); Bilirubin,Total 0.9 mg/dL (0.2-1.3); Blood Urea Nitrogen 15 mg/dL (9-20); Calcium 9.3 mg/dL (8.4-10.2); Carbon Dioxide 27 mmol/L (22-30); Chloride 94 mmol/L (98-107); Estimated CRCL calculation 67 ml/min; Estimated Glomerular Filt Rate > 60; Glucose 121 mg/dL (65-110); Lipase 42 U/L (23-300); Potassium 4.3 mmol/L (3.4-5.0); Sodium 130 mmol/L (137-145)
[2023-08-18 14:05] LABS: Prothrombin Time 13.3 Seconds (11.1-14.7)
[2023-08-18 14:06] LABS: Partial Thromboplastin Time 34.1 SECONDS (22.3-36.8)
[2023-08-18 14:18] LABS: NT Pro B Type Natriuretic Pept 3200 pg/mL (19.9-100); Troponin I 0.089 ng/mL (0.000-0.034)
[2023-08-18] MEDS: ASPIRIN 81 MG CHEWABLE TABLET 243 MG PO (16:11)
[2023-08-18 16:16] LABS: Troponin I 0.084 ng/mL (0.000-0.034)
[2023-08-18] MEDS: LABETALOL HCL INJ 100 MG/20 ML VIAL 20 MG IV PUSH (17:26)
[2023-08-18 19:10] LABS: Troponin I 0.073 ng/mL (0.000-0.034)
[2023-08-18 19:26] LABS: Influenza A QL RT-PCR Negative (Negative); Influenza B QL RT-PCR Negative (Negative); RSV RNA, RT-PCR Negative (Negative); SARS-CoV-2 RNA PCR Negative (Negative)
--- NOTE | 2023-08-18 19:48 | ADMGEN ---
This patient, Andre Steward, was admitted to IMU Room 209-01. Patient/family oriented to hospital policies and general routines including ID bracelet, bed and alarms, visiting hours, pain management, procedures, bathroom and other care routines, personal items, smoking policy, room service/diet, and visiting hours. Information on how to activate the Rapid Response Team has been discussed. Patient/Family are encouraged to report perceived risks to care and to ask questions if they do not understand what they are told or what they should do.
[2023-08-18] MEDS: FLUTICASONE PROPIONATE 0.05% NA SPR 16 GM BTL (*BKC) 1 SPRAY NASAL (21:35)
[2023-08-18] MEDS: METOPROLOL TARTRATE 50 MG TAB PO (23:10)
[2023-08-18] MEDS: levETIRAcetam 500 MG TABLET PO (23:10)
[2023-08-19] VITALS (22 sets, daily range): BP systolic 108–185; BP diastolic 45–74; PULSE 57–99; RESP 18; TEMP 36–37.2; O2SAT 97–100
[2023-08-19 00:31] LABS: Troponin I 0.068 ng/mL (0.000-0.034)
[2023-08-19] MEDS: hydrALAZINE HCL 20 MG/ML VIAL 10 MG IV PUSH (00:37)
[2023-08-19] MEDS: ASPIRIN 81 MG ENTERIC TABLET PO (09:34)
[2023-08-19] MEDS: METOPROLOL TARTRATE 50 MG TAB PO ×2 (09:34→20:21)
[2023-08-19] MEDS: THIAMINE HCL 200 MG/2 ML VIAL 100 MG IV PUSH (09:34)
[2023-08-19] MEDS: FOLIC ACID 0.4 MG TABLET PO (09:34)
[2023-08-19] MEDS: OMEGA 3 POLYUNSAT FATTY ACIDS 1 GM CAP PO (09:34)
[2023-08-19] MEDS: levETIRAcetam 500 MG TABLET PO ×2 (09:34→20:21)
[2023-08-19] MEDS: FLUTICASONE PROPIONATE 0.05% NA SPR 16 GM BTL (*BKC) 1 SPRAY NASAL ×2 (09:35→20:23)
[2023-08-19] MEDS: ACETAMINOPHEN 325 MG TABLET 650 MG PO ×2 (10:39→16:47)
[2023-08-19] MEDS: LABETALOL HCL INJ 100 MG/20 ML VIAL 20 MG IV PUSH (16:44)
--- NOTE | 2023-08-19 18:49 | PM.IMHP ---
H&P: HPI History of Present Illness Date/Time: 08/19/23 18:49 Chief Complaint: chest pain, congestion Narrative: c/o 2 days of chest pressure comes and goes. along with congestion and yellow sputum production. he is a previous smoker. pain is resolved since admission however and he is very apprehensive to go home Review of Systems Review of Systems: All systems reviewed & are unremarkable except as noted in HPI and below PMFSH Past Medical History Medical History COVID-19 Essential (primary) hypertension Mixed hyperlipidemia Paroxysmal A-fib Seizure Surgical History Surgical History H/O abdominal surgery Abdominal umbilical hernia repair with multiple complications and least 2 more surgeries after that. H/O cataract extraction H/O colonoscopy with polypectomy H/O nasal septoplasty Sinus surgery H/O sinus surgery X3 History of removal of pigmented skin lesion History of tonsillectomy and adenoidectomy Family History Family History Father Hypertension Cerebrovascular accident Mother Family history of congestive heart failure Family history of heart disease in male family member before age 55 Other Family history of allergic disorder Family history of arthritis Social History Social History Social History: The patient lives with his . He has 4 children. He drinks up to 5-6 beers a day and more on the weekends. 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 Patient quit smoking many years ago. No marijuana or illicit drugs noted. His is the durable power of trust and estates attorney for healthcare. Code status full code Smoking packs per day: 1.5 Smoking cigarettes per day: 30.0 Years smoked: 41 Smoking pack-years: 61.50 Smoking status: Former smoker Tobacco type: cigarettes Smoking end date: 08/06/99 Alcohol intake: current Drinks per week: 32 Alcohol use details: beer Substance use: never Substance use type: does not use Lack of Transportation: No Lack of Food: Never True Current Housing: I Have Housing Concerned About Future Housing: No Difficulty Paying Gas/Electric Bills: No Difficulty Paying for Meds: No Currently Unemployed: No Education: High School Diploma/GED Difficulty w/ Childcare or Family Care: No Spiritual care concerns: No Meds Home Medications and Allergies Home Medications Medication Instructions Recorded Confirmed Type aspirin 81 mg tablet,delayed 81 mg PO DAILY 09/02/21 08/18/23 History release (Adult Aspirin Regimen) folic acid 400 mcg tablet 0.4 mg PO DAILY 09/02/21 08/18/23 History omega-3 fatty acids 1,000 mg 1,000 mg PO DAILY 09/02/21 08/18/23 History capsule (Fish Oil Concentrate) fluticasone propionate 50 1 spray intranasal Q12H 30 days #1 11/10/22 08/18/23 Rx mcg/actuation nasal device spray,suspension (Flonase Allergy Relief) ipratropium bromide 21 mcg (0.03 See Rx Instructions .Route 08/17/23 08/18/23 Rx %) nasal spray .COMPLEX 90 days #90 mL levetiracetam 500 mg tablet 500 mg PO BID 08/18/23 08/18/23 History metoprolol tartrate 50 mg tablet 50 mg PO BID 08/18/23 08/18/23 History Allergies Allergy/AdvReac Type Severity Reaction Status Date / Time amoxicillin Allergy Unknown Diarrhea Verified 06/03/23 13:10 Penicillins Allergy Unknown Rash Verified 08/18/23 12:33 phenylephrine Allergy Unknown Diarrhea Verified 06/03/23 13:10 levofloxacin AdvReac Unknown Diarrhea Verified 06/03/23 13:10 Vital Signs Vital Signs - 24 hr 08/18/23 19:01 08/18/23 19:24 08/18/23 19:58 Temperature 97.3 F L Pulse Rate 67 67 Pulse Rate [Bilateral Pedal (Dorsalis Pedis) Palpation] Respiratory Rate 18 18 Blood Pressure 124/84 131/52 L Pulse Oximetry 98 98 Oxygen Delivery R
[2023-08-19 20:04] LABS: Acetaminophen < 10 ug/mL (10-30); Ammonia < 9 umol/L (9-30); Salicylate < 1.0 mg/dL (2-20)
[2023-08-19] MEDS: AZITHROMYCIN 500 MG/NS 250 ML 500 MG/250 ML BAG 250 MG IVPB (20:17)
[2023-08-19] MEDS: guaiFENesin 12 HR 600 MG TABCR PO (20:21)
[2023-08-19 20:43] LABS: Glucose Point of Care 110 mg/dl (65-105)
[2023-08-19] MEDS: cefTRIAXone 2 GM/NS 100 ML 2 GM/100 ML BAG IVPB (21:23)
[2023-08-20] VITALS (17 sets, daily range): BP systolic 127–155; BP diastolic 51–92; PULSE 51–129; RESP 18–22; TEMP 36–36.6; O2SAT 92–100
[2023-08-20] MEDS: hydrALAZINE HCL 20 MG/ML VIAL 10 MG IV PUSH (00:04)
[2023-08-20 03:35] LABS: Amphetamine Screen Urine Negative (Negative); Barbiturate Screen Urine Negative (Negative); Benzodiazepines Screen Urine Negative (Negative); Cannabinoid Screen Urine Negative (Negative); Cocaine Screen Urine Negative (Negative); Methadone Screen Urine Negative (Negative); Opiate Screen Urine Negative (Negative); Phencyclidine Screen Urine Negative (Negative)
--- NOTE | 2023-08-20 04:27 | ECG_ITS ---
Measurements Intervals [place] Rate: 124 P: [place]: 0 QRS: -17 QRSD: 86 T: 43 QT: 289 QTc: 415 Interpretive Statements ATRIAL FIBRILLATION WITH RAPID VENTRICULAR RESPONSE INCOMPLETE RIGHT BUNDLE BRANCH BLOCK LEFT VENTRICULAR HYPERTROPHY WITH ST-T CHANGE ST-T WAVE ABNORMALITY IN LATERAL LEADS- CONSIDER ISCHEMIA ABNORMAL ECG COMPARED TO ECG 08/18/2023 13:17:47 ATRIAL FIBRILLATION NOW PRESENT ST-T WAVE ABNORMALITY NOW PRESENT Electronically Signed On 08-20-2023 7:07:54 DIRECTOR NEW PRODUCT by Santy Zaragoza D.O.
[2023-08-20] MEDS: dilTIAZem HCl INJ 25 MG/5 ML VIAL 10 MG IV PUSH (04:56)
[2023-08-20 05:34] LABS: Basophils Absolute Auto 0.1 K/mm3 (0.0-0.1); Basophils Percent Auto 0.4 % (0.2-1.2); Eosinophils Absolute Auto 0.3 K/mm3 (0-0.3); Eosinophils Percent Auto 2.3 % (0-4.4); Hemoglobin 13.7 g/dL (14.0-18.0); Immature Granulocyte Absolute 0.07 K/mm3 (0.00-0.031); Immature Granulocyte Percent A 0.5 % (0-0.5); Lymphocytes Absolute Auto 2.14 K/mm3 (0.9-3.2); Lymphocytes Percent Auto 15.2 % (18.3-44.2); Mean Corpuscular HGB Conc 34.3 g/dl (32-36); Mean Corpuscular Volume 93.5 fl (80-100); Mean Platelet Volume 11.1 fl (7.4-10.4); Monocytes Absolute Auto 1.1 K/mm3 (0.1-0.6); Monocytes Percent Auto 7.5 % (2.6-8.5); Neutrophils Absolute Auto 10.5 K/mm3 (1.3-6.7); Neutrophils Percent Auto 74.1 % (45.5-73.1); Platelet Count Result 273 k/mm3 (150-375); Red Blood Count 4.28 M/mm3 (4.6-6.20); Red Cell Distribution Width 12.2 % (11.5-14.5); White Blood Count 14.1 K/mm3 (4.5-10.0)
[2023-08-20 05:47] LABS: Alanine Aminotransferase 21 U/L (6-50); Alkaline Phosphatase 72 U/L (38-126); Anion Gap 11 mmol/L (8-16); Aspartate Amino Transferase 32 U/L (17-59); Bilirubin,Total 0.7 mg/dL (0.2-1.3); Blood Urea Nitrogen 12 mg/dL (9-20); Carbon Dioxide 22 mmol/L (22-30); Chloride 94 mmol/L (98-107); Estimated CRCL calculation 90 ml/min; Estimated Glomerular Filt Rate > 60; Glucose 121 mg/dL (65-110); Magnesium 1.7 mg/dL (1.6-2.3); Potassium 3.6 mmol/L (3.4-5.0); Sodium 127 mmol/L (137-145)
[2023-08-20 06:04] LABS: Procalcitonin 0.1 ng/mL
[2023-08-20] MEDS: dilTIAZem 100 MG/100 ML 100 MG/100 ML BAG IV CONT (06:15)
[2023-08-20 07:55] LABS: Glucose Point of Care 125 mg/dl (65-105)
[2023-08-20] MEDS: OMEGA 3 POLYUNSAT FATTY ACIDS 1 GM CAP PO (08:41)
[2023-08-20] MEDS: levETIRAcetam 500 MG TABLET PO ×2 (08:41→20:07)
[2023-08-20] MEDS: ASPIRIN 81 MG ENTERIC TABLET PO (08:42)
[2023-08-20] MEDS: FLUTICASONE PROPIONATE 0.05% NA SPR 16 GM BTL (*BKC) 1 SPRAY NASAL (08:42)
[2023-08-20] MEDS: THIAMINE HCL 200 MG/2 ML VIAL 100 MG IV PUSH (08:42)
[2023-08-20] MEDS: guaiFENesin 12 HR 600 MG TABCR PO ×2 (08:42→21:07)
[2023-08-20] MEDS: METOPROLOL TARTRATE 50 MG TAB PO (08:42)
[2023-08-20] MEDS: FOLIC ACID 0.4 MG TABLET PO (08:42)
--- NOTE | 2023-08-20 08:42 | PC.NURSE ---
Addendum entered by Fátima Foss RN 08/20/23 11:41: notified. No new orders at this time. Continue [facility] Original Note: RN to bedside for morning assessment. RN asking orientation questions and pt just keeps answering I don't know. and then giggles. Pt seems to find this assessment a joke and is refusing to participate. RN asks pt what is birthday is pt answers I don't know . RN asks pt what 2+4 is pt answers I don't know RN asks pt to count on his fingers pt responds I don't know how and I'm not doing that. Pt ask RN what's the purpose of all this. RN explains to pt the purpose to neurological exams with his history of alcohol abuse. Pt states I'm fine and I'm not doing this. RN proceeds with complete neurological exam. RN places pt in bed with bed alarm on. Pt continues to stand at bedside setting bed alarm off. Pt refusing to use call light for help. I'm fine and I don't need help. I'm just standing up to pee. RN re-explains the importance of bed alarm and pt safety to pt. RN turns bed alarm on before leaving room
[2023-08-20] MEDS: amLODIPine BESYLATE 5 MG TABLET 10 MG PO (08:44)
[2023-08-20 11:20] LABS: Glucose Point of Care 135 mg/dl (65-105)
--- NOTE | 2023-08-20 11:48 | PM.CNCAR ---
Assessment and Plan Assessment and plan (1) Paroxysmal A-fib: Code(s): I48.0 - Paroxysmal atrial fibrillation Status: Acute Assessment and Plan: Patient has been found to have new onset paroxysmal atrial fibrillation noted this morning, and I wonder if this has been going on intermittently for last couple of days causing his feeling that he was ?dying. ? He has rapid ventricular response, though at the moment, on his usual metoprolol 50 mg b.i.d. and diltiazem 5 mg IV/hr, his heart rate is improved, in the 90s. He may or may not have had some chest discomfort recently; he is a poor historian and differing histories are obtained. has not noted any c/o CP.. His troponins are fairly flat and there was no ischemic EKG changes initially (some slight ST depression in V5 and V6 when AFib RVR) so I think ACS is a low likelihood. 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 He has tachy-lakhwinder syndrome. Perhaps the pauses are what is making him feel like he was dying. --discontinue metoprolol and diltiazem --treat rapid ventricular rate with p.r.n. metoprolol for now --counseled patient is about tachy-lakhwinder syndrome. I think he will need a pacemaker. Reviewed pacemaker implant, expectations and purpose, follow-up etc.. Patient was initially apprehensive and thought about leaving, which I strongly advised him not to do, as we have not solved his problem yet and he would be at risk of falls, syncope, etc. He has decided to proceed with pacemaker implant which I will schedule for tomorrow. (3) Altered mental status: Qualifiers: Altered mental status type: unspecified Qualified Code(s): R41.82 - Altered mental status, unspecified Code(s): R41.82 - Altered mental status, unspecified Status: Acute Assessment and Plan: says his memory problems and altered mental status began 2 days ago and previously he was fully functional, could drive and manage his finances, and was involved in the [employer] in [place] last w/e. No focal neurologic signs. Could be a stroke that has not shown up on the CT scan, altered mental status related to hyponatremia, or perhaps alcohol withdrawal since apparently he has a history of heavy beer intake. --MR I/MRA of the brain if patient's pauses improved. --fluid restriction of 1800 cc for the hyponatremia --patient is on protocol watching for alcohol withdrawal. (4) Hypertension: Code(s): I10 - Essential (primary) hypertension Status: Acute Assessment and Plan: Controlled currently, quite high on admission, states compliant with medications (5) Hyponatremia: Code(s): E87.1 - Hypo-osmolality and hyponatremia Status: Acute Assessment and Plan: History of hyponatremia, sodium now 127. --Fluid restriction of 1800 cc's. (6) Elevated brain natriuretic peptide (BNP) level: Code(s): R79.89 - Other specified abnormal findings of blood chemistry Status: Acute Assessment and Plan: Elevated pro-BNP of 3200, no CHF on CXR or MANCUSO; May be subclinical CHF 2nd to PAF and diastolic dysfxn. (7) Alcoholism: Code(s): F10.20 - Alcohol dependence, uncomplicated Status: Acute Assessment and Plan: Drinks 5-6 beers /day and sometimes more. On etoh withdrawal protocol. (8) Chronic sinusitis, unspecified: Code(s): J32.9 - Chronic sinusitis, unspecified Status: Acute Assessment and Plan: One of Pt's main sx was sinus congestion. Started on antibiotics per hospitalist. History of Present Illness History of Present Illness Consult date/time: 08/20/23 11:48 Reason For
[2023-08-20] MEDS: ACETAMINOPHEN 325 MG TABLET 650 MG PO (12:46)
[2023-08-20] MEDS: HEPARIN SOD/D5W 100 UNITS/ML 25,000 UNITS/250 ML BAG 14 UNITS IV CONT (15:33)
--- NOTE | 2023-08-20 16:18 | PM.IMPN ---
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 1) chest pain - troponins downtrended. EKG without acute ischemia. some lateral ST depression. cont aspirin. lexiscan cancelled due to a fib w/ RVR new onset. pain may have been related to tachybrady syndrome. cardiology following 2) tachybrady syndrome + sick sinus syndrome - a fib w/ rvr new onset mixed with 6 second pauses. cardizem since dc'ed, using prn IV metoprolol if goes back into RVR, currently he is SR. - heparin gtt started, pending TSH - pacemaker implant tomorrow with cardiology - cont tele monitoring 3) leukocytosis - again higher on 08/20. procal 1. cont to trend. covering with ceftriaxone and azithromycin. otherwise does not appear toxic. check blood cultures too. this could all be reactive. 4) sinus congestion - guaifenesin. 5) chronic hyponatremia - worsened on 08/20. fluid restriction started. consult nephrology. - beer potomania? also has elevated BNP and some crackles. could be due to low effective arterial volume 6) elevated BNP - ctm fluid status. not clinically overloaded, some crackles but no edema and breathing fine 7) uncontrolled hypertension - amlodipine added this admission, now controlled. 8) altered mental status - delirium 2/2 hyponatremia, alcoholic dementa or other causes of dementia. he appears cohesive every time i conduct an evaluation. CT head negative. lab workup widely negative so far. pending MRI MRA brain. ctm otherwise. FEN: saline lock IV. cardiac diet. npo at midnight. 1800 cc fluid restriction per day GI prophylaxis: not indicated DVT prophylaxis: heparin gtt Lines: pIV Code Status: Full Code Dispo: stable. More than 35 minutes spent on chart review, patient interaction and assessment and plan. Subjective Date/time seen: 08/20/23 16:18 Interval history: NAOE. patient feels his speech is normal. denies any confusion. no sob, dizziness, chest pain, n/v, abdominal pain Review of Systems Review of Systems: All systems reviewed & are unremarkable except as noted in HPI and below Exam Const: General: comfortable and no acute distress Eyes: Pupils: Equal, round and reactive pupils present Neck: Neck: supple Resp: Effort & Inspection: normal respiratory effort Auscultation: crackles (scant, diffuse) Cardio: Rate: regular rate Rhythm: regular rhythm Heart sounds: no gallops, no murmurs and no rubs GI: Inspection: non-distended GI Palp: Yes Soft to palpation and No Tenderness to palpation present (GI) Auscultation: normal bowel sounds Neuro: Speech: normal speech Motor exam (neuro): 5/5 motor strength present throughout Sensory Exam: normal sensation Extrem: General: no edema Objective Data Vital Signs Vital Signs: Vital Signs - 24 hr 08/19/23 16:44 08/19/23 17:22 08/19/23 17:30 Temperature 96.9 F L Pulse Rate 63 61 Respiratory Rate 18 Blood Pressure 110/59 L 108/74 Pulse Oximetry 99 Oxygen Delivery 08/19/23 18:00 08/19/23 20:00 08/19/23 20:21 Temperature 97.7 F Pulse Rate 69 64 69 Respiratory Rate 18 Blood Pressure 170/49 H Pulse Oximetry 99 Oxygen Delivery 08/19/23 20:00 08/19/23 20:00 08/19/23 22:00 Temperature
[2023-08-20 17:22] LABS: Glucose Point of Care 126 mg/dl (65-105)
[2023-08-20] MEDS: cefTRIAXone 2 GM/NS 100 ML 2 GM/100 ML BAG IVPB (19:59)
[2023-08-20] MEDS: IPRATROPIUM NASAL SPRAY 0.03% 15 ML BOTTLE 2 SPRAY NASAL (20:05)
[2023-08-20 20:26] LABS: Glucose Point of Care 92 mg/dl (65-105)
[2023-08-20 22:13] LABS: Partial Thromboplastin Time 74.2 SECONDS (22.3-36.8)
[2023-08-21] VITALS (27 sets, daily range): BP systolic 91–177; BP diastolic 45–91; PULSE 70–146; RESP 14–24; TEMP 35.9–36.6; O2SAT 94–100
[2023-08-21 05:11] LABS: Basophils Absolute Auto 0.1 K/mm3 (0.0-0.1); Basophils Percent Auto 0.6 % (0.2-1.2); Eosinophils Absolute Auto 0.5 K/mm3 (0-0.3); Eosinophils Percent Auto 4.4 % (0-4.4); Hematocrit 38.7 % (42.0-52.0); Hemoglobin 13.4 g/dL (14.0-18.0); Immature Granulocyte Absolute 0.05 K/mm3 (0.00-0.031); Immature Granulocyte Percent A 0.5 % (0-0.5); Lymphocytes Absolute Auto 2.81 K/mm3 (0.9-3.2); Lymphocytes Percent Auto 25.9 % (18.3-44.2); Mean Corpuscular HGB Conc 34.6 g/dl (32-36); Mean Corpuscular Volume 92.4 fl (80-100); Mean Platelet Volume 10.8 fl (7.4-10.4); Monocytes Absolute Auto 1.1 K/mm3 (0.1-0.6); Monocytes Percent Auto 10.4 % (2.6-8.5); Neutrophils Absolute Auto 6.3 K/mm3 (1.3-6.7); Neutrophils Percent Auto 58.2 % (45.5-73.1); Platelet Count Result 291 k/mm3 (150-375); Red Blood Count 4.19 M/mm3 (4.6-6.20); Red Cell Distribution Width 12.2 % (11.5-14.5); White Blood Count 10.8 K/mm3 (4.5-10.0)
[2023-08-21 05:22] LABS: Anion Gap 7 mmol/L (8-16); Blood Urea Nitrogen 14 mg/dL (9-20); Calcium 8.6 mg/dL (8.4-10.2); Carbon Dioxide 25 mmol/L (22-30); Chloride 94 mmol/L (98-107); Estimated CRCL calculation 70 ml/min; Estimated Glomerular Filt Rate > 60; Glucose 101 mg/dL (65-110); Magnesium 1.8 mg/dL (1.6-2.3); Potassium 3.7 mmol/L (3.4-5.0); Sodium 126 mmol/L (137-145)
[2023-08-21 05:24] LABS: Prothrombin Time 14.1 Seconds (11.1-14.7)
[2023-08-21 05:26] LABS: Partial Thromboplastin Time 101.3 SECONDS (22.3-36.8)
[2023-08-21 05:39] LABS: Procalcitonin 0.1 ng/mL
[2023-08-21 08:42] LABS: Glucose Point of Care 105 mg/dl (65-105)
[2023-08-21] MEDS: amLODIPine BESYLATE 5 MG TABLET 10 MG PO (08:46)
[2023-08-21] MEDS: THIAMINE HCL 200 MG/2 ML VIAL 100 MG IV PUSH (08:46)
[2023-08-21] MEDS: levETIRAcetam 500 MG TABLET PO ×2 (08:47→20:03)
[2023-08-21] MEDS: FLUTICASONE PROPIONATE 0.05% NA SPR 16 GM BTL (*BKC) 1 SPRAY NASAL (08:47)
[2023-08-21] MEDS: guaiFENesin 12 HR 600 MG TABCR PO ×2 (08:47→20:03)
[2023-08-21] MEDS: OMEGA 3 POLYUNSAT FATTY ACIDS 1 GM CAP PO (08:47)
[2023-08-21] MEDS: FOLIC ACID 0.4 MG TABLET PO (08:47)
--- NOTE | 2023-08-21 09:31 | WPDMODSED ---
Moderate Sedation Note-Pt Data Patient Data Diagnosis: Paroxysmal atrial fibrillation Sick sinus syndrome Present Complaint: Episodes of near-syncope Procedure to be performed/Plan: Pacemaker implantation Allergies Allergy/AdvReac Type Severity Reaction Status Date / Time amoxicillin Allergy Unknown Diarrhea Verified 06/03/23 13:10 Penicillins Allergy Unknown Rash Verified 08/18/23 12:33 phenylephrine Allergy Unknown Diarrhea Verified 06/03/23 13:10 levofloxacin AdvReac Unknown Diarrhea Verified 06/03/23 13:10 Home Medications Medication Instructions Recorded Confirmed Type aspirin 81 mg tablet,delayed 81 mg PO DAILY 09/02/21 08/18/23 History release (Adult Aspirin Regimen) folic acid 400 mcg tablet 0.4 mg PO DAILY 09/02/21 08/18/23 History omega-3 fatty acids 1,000 mg 1,000 mg PO DAILY 09/02/21 08/18/23 History capsule (Fish Oil Concentrate) fluticasone propionate 50 1 spray intranasal Q12H 30 days #1 11/10/22 08/18/23 Rx mcg/actuation nasal device spray,suspension (Flonase Allergy Relief) ipratropium bromide 21 mcg (0.03 See Rx Instructions .Route 08/17/23 08/18/23 Rx %) nasal spray .COMPLEX 90 days #90 mL levetiracetam 500 mg tablet 500 mg PO BID 08/18/23 08/18/23 History metoprolol tartrate 50 mg tablet 50 mg PO BID 08/18/23 08/18/23 History Current Medications: Active Medications Acetaminophen (Acetaminophen 325 Mg Tablet) 650 mg PO Q4H PRN PRN Reason: Headache Last Admin: 08/20/23 12:46 Dose: 650 mg Amlodipine Besylate (Amlodipine Besylate 5 Mg Tablet) 10 mg PO QAM [facility] Last Admin: 08/21/23 08:46 Dose: 10 mg Aspirin (Aspirin 81 Mg Enteric Tablet) 81 mg PO DAILY [facility] Last Admin: 08/21/23 08:39 Dose: Not Given Dextrose (Dextrose 50% 25 Gm/50 Ml Syringe) 12.5 gm IV PUSH PRN PRN; Protocol PRN Reason: Hypoglycemia Fish Oil ([place] 3 Polyunsat Fatty Acids 1 Gm Cap) 1 gm PO DAILY [facility] Last Admin: 08/21/23 08:47 Dose: 1 gm Fluticasone Propionate (Fluticasone Propionate 0.05% Na Spr 16 Gm Btl (*Bkc)) 1 spray NASAL Q12HR [facility] Last Admin: 08/21/23 08:47 Dose: 1 spray Folic Acid (Folic Acid 0.4 Mg Tablet) 0.4 mg PO DAILY [facility] Last Admin: 08/21/23 08:47 Dose: 0.4 mg Glucagon (Glucagon For Inj 1 Mg Vial) 1 mg IM PRN PRN; Protocol PRN Reason: Hypoglycemia Glucose (Glucose Oral Gel 15 Gm Of Glucse In 37.5 Gm Tube) 15 gm PO PRN PRN; Protocol PRN Reason: Hypoglycemia Guaifenesin (Guaifenesin 12 Hr 600 Mg Tabcr) 600 mg PO Q12HR [facility] Last Admin: 08/21/23 08:47 Dose: 600 mg Hydralazine HCl (Hydralazine Hcl 20 Mg/Ml Vial) 10 mg IV PUSH Q4H PRN PRN Reason: Blood Pressure - High Last Admin: 08/20/23 00:04 Dose: 10 mg Dextrose (Dextrose 5% 1,000 Ml) 1,000 mls @ 100 mls/hr IVPB PRN PRN; Protocol PRN Reason: Hypoglycemia Ceftriaxone Sodium (Rocephin 2 Gm/Ns 100 Ml) 2 gm in 100 mls @ 200 mls/hr IVPB Q24H [facility] Last Admin: 08/20/23 19:59 Dose: 200 mls/hr Insulin Aspart (Insulin Aspart (*Bkc) 100 Units/Ml) 2 - 5 units SUB-Q TIDWM [facility]; Protocol Last Admin: 08/21/23 08:39 Dose: Not Given Insulin Aspart (Insulin Aspart (*Bkc) 100 Units/Ml) 1 - 2 units SUB-Q HS [facility]; Protocol Last Admin: 08/20/23 21:22 Dose: Not Given Ipratropium [place] (Ipratropium Nasal [place] 0.03% 15 Ml Bottle) 2 spray NASAL Q12HR [facility] Last Admin: 08/21/23 08:48 Dose: Not Given Levetiracetam (Levetiracetam 500 Mg Tablet) 500 mg PO Q12HR [facility] Last Admin: 08/21/23 08:47 Dose: 500 mg Lorazepam (Lorazepam Inj (*Crx) 2 Mg/Ml Vial) 2 mg IV PUSH Q4H PRN PRN Reason: CIWA 8-15 Metoprolol Tartrate (Metoprolol Tartrate 50 Mg Tab) 50 mg PO Q12HR [facility] Last Admin: 08/20/23 08:42 Dose: 50 mg Metoprolol Tartrate (Metoprolol Tartrate Inj 5 Mg/5 Ml Vial) 2.5 mg IV PUSH Q1H PRN PRN Reason: for heart rate > 120 Thiamine HCl (Thiamine Hcl 200 Mg/2 Ml Vial) 100 mg IV PUSH DAILY [facility] Last Admin: 08/21/23 08:46 Dose: 100 mg Sedation/Anesthesia: No previous sedation/anesthesia problems (includi
[2023-08-21] MEDS: hydrALAZINE HCL 20 MG/ML VIAL 10 MG IV PUSH (10:40)
--- NOTE | 2023-08-21 10:51 | PM.CNNEP ---
Assessment and Plan Assessment and plan (1) Hyponatremia: Code(s): E87.1 - Hypo-osmolality and hyponatremia Status: Chronic Assessment and Plan: chronic issue that dates back to 2019 from 2019 - 2021, sodium was running around 128 - 134mmol/L since 2022, sodium running 126 - 130mmol/L does have a history of excessive beer/alcohol intake... evaluation to date: TSH okay head CT negative MRI of brain with acute CVA check cortisol, SPEP/UPEP, serum/urine osmolality, and urine electrolytes already on fluid restriction (although does not appear volume overloaded) follow trend of sodium level consider salt tabs +/- lasix depending on trend of sodiums (2) Altered mental status: Qualifiers: Altered mental status type: unspecified Qualified Code(s): R41.82 - Altered mental status, unspecified Code(s): R41.82 - Altered mental status, unspecified Status: Acute Assessment and Plan: apparently an issue ~ 2 days prior to admission etiology not clear but several concerns: due to acute CVA (as per brain MRI)? hyponatremia? alcohol related? hypertension related? -- quite elevated on admission other? 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 (4) Paroxysmal A-fib: Code(s): I48.0 - Paroxysmal atrial fibrillation Status: Acute Assessment and Plan: rate control strategy anticoagulation as per Cardiology (5) Hypertension: Code(s): I10 - Essential (primary) hypertension Status: Acute Assessment and Plan: quite high on admission still somewhat elevated further BP adjustments after pacemaker placement (6) Alcoholism: Code(s): F10.20 - Alcohol dependence, uncomplicated Status: Chronic Assessment and Plan: reportedly drinks ~ 5-6 beers /day and sometimes more monitor for withdrawal I will continue follow the patient with you while remains hospitalized to make further recommendations as needed. Thank you for allowing me to participate in the care of this patient. History of Present Illness Reason for Consult Consult date: 08/21/23 Reason for consult: hyponatremia Chief Complaint Chief complaint: Paroxysmal Atrial Fibrillation/Sick Sinus Syndrome History of Present Illness Narrative: A great deal of the information that have pain is from review of the electronic medical record as well as discussion with the physician / nurses involved in the patient's care as it is difficult for the patient to give a full and complete history of the events that led to presentation to the hospital. The patient is an 82-year-old male with a past medical history as outlined below who presented to [facility] Emergency room with multiple complaints. ER records indicate that he had complaints chest heaviness that came in went in association with nasal congestion, productive cough of yellow sputum, and generalized sensation feeling bad. On my questioning he denies any type of chest pain symptoms but rather stated that he was not sleeping very well and felt as if he was dying. No reported symptoms of fevers, chills, shortness of breath, nausea, or vomiting. Given the persistence of the symptoms over last several days, it was seen that he came to the ER for further assessment. Workup and evaluation in the emergency room demonstrated the patient to be hemodynamically stable but quite hypertensive with a systolic BP greater than 200. his EKG and troponins were not significant for acute coronary syndrome but he was given IV labetalol given his significant hypertension. Routine blood tests were only significant for hyponatr
--- NOTE | 2023-08-21 10:51 | P.CONNP_ITS ---
Assessment and Plan Assessment and plan (1) Hyponatremia: Code(s): E87.1 - Hypo-osmolality and hyponatremia Status: Chronic Assessment and Plan: * chronic issue that dates back to 2019 * from 2019 - 2021, sodium was running around 128 - 134mmol/L * since 2022, sodium running 126 - 130mmol/L * does have a history of excessive beer/alcohol intake... * evaluation to date: * TSH okay * head CT negative * MRI of brain with acute CVA * check cortisol, SPEP/UPEP, serum/urine osmolality, and urine electrolytes * already on fluid restriction (although does not appear volume overloaded) * follow trend of sodium level * consider salt tabs +/- lasix depending on trend of sodiums (2) Altered mental status: Qualifiers: Altered mental status type: unspecified Qualified Code(s): R41.82 - Altered mental status, unspecified Code(s): R41.82 - Altered mental status, unspecified Status: Acute Assessment and Plan: * apparently an issue ~ 2 days prior to admission * etiology not clear but several concerns: * due to acute CVA (as per brain MRI)? * hyponatremia? * alcohol related? * hypertension related? -- quite elevated on admission * other? 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 (4) Paroxysmal A-fib: Code(s): I48.0 - Paroxysmal atrial fibrillation Status: Acute Assessment and Plan: * rate control strategy * anticoagulation as per Cardiology (5) Hypertension: Code(s): I10 - Essential (primary) hypertension Status: Acute Assessment and Plan: * quite high on admission * still somewhat elevated * further BP adjustments after pacemaker placement (6) Alcoholism: Code(s): F10.20 - Alcohol dependence, uncomplicated Status: Chronic Assessment and Plan: * reportedly drinks ~ 5-6 beers /day and sometimes more * monitor for withdrawal I will continue follow the patient with you while remains hospitalized to make further recommendations as needed. Thank you for allowing me to participate in the care of this patient. History of Present Illness Reason for Consult Consult date: 08/21/23 Reason for consult: hyponatremia Chief Complaint Chief complaint: Paroxysmal Atrial Fibrillation/Sick Sinus Syndrome History of Present Illness Narrative: A great deal of the information that have pain is from review of the electronic medical record as well as discussion with the physician / nurses involved in the patient's care as it is difficult for the patient to give a full and complete h istory of the events that led to presentation to the hospital. The patient is an 82-year-old male with a past medical history as outlined below who presented to [facility] Emergency room with multiple complaints. ER records indicate that he had complaints chest heaviness that came in went in association with nasal congestion, productive cough of yellow sputum, and generalized sensation feeling bad. On my questioning he denies any type of chest pain symptoms but rather stated that he was not sleeping very well and felt as if he was dying. No reported symptoms of fevers, chills, shortness of breath, nausea, or vomiting. Given the persistence of the symptoms over
[2023-08-21 11:48] LABS: Glucose Point of Care 107 mg/dl (65-105)
--- NOTE | 2023-08-21 11:48 | ECG_ITS ---
Measurements Intervals [place] Rate: 133 P: CO: 0 QRS: -7 QRSD: 82 T: 70 QT: 290 QTc: 433 Interpretive Statements ATRIAL FIBRILLATION WITH RAPID VENTRICULAR RESPONSE INCOMPLETE RIGHT BUNDLE BRANCH BLOCK ST-T WAVE ABNORMALITY IN ANTEROLAT/HIGH LAT LEADS- CONSIDER ISCHEMIA BASELINE ARTIFACT- II, III, AVR, AVL, AVF, V1-V2 ABNORMAL ECG COMPARED TO ECG 08/20/2023 04:39:08 ST-T WAVE ABNORMALITY IS MORE PRONOUNCED Electronically Signed On 08-21-2023 12:33:19 [employer] by Santy Zaragoza D.O.
[2023-08-21] MEDS: MORPHINE SULFATE (*CRX) 2 MG/ML INJ 0.5 MG IV PUSH (12:21)
[2023-08-21] MEDS: SOTALOL HCL 80 MG TABLET PO ×2 (12:23→20:04)
[2023-08-21] MEDS: dilTIAZem 100 MG/100 ML 100 MG/100 ML BAG 10 MG IV CONT (13:00)
[2023-08-21] MEDS: dilTIAZem HCl INJ 25 MG/5 ML VIAL 10 MG IV PUSH (13:00)
--- NOTE | 2023-08-21 13:17 | PM.IMPN ---
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 1) chest pain - troponins downtrended. EKG without acute ischemia. some lateral ST depression. cont aspirin. lexiscan cancelled due to a fib w/ RVR new onset. pain may have been related to tachybrady syndrome. cardiology following - 08/21 again with burning chest pain, concurrent with a fib rvr. EKG demonstrating more pronounced. he is going for pacemaker today, so heparin needs to be restart amanda, and he would benefit from angiogram - will consult with cardiology on this 2) tachybrady syndrome + sick sinus syndrome - a fib w/ rvr new onset mixed with 6 second pauses. TSH 1.280. cardiology managing - heparin gtt - pacemaker implant tomorrow with cardiology - cont tele monitoring 3) leukocytosis - again higher on 08/20. procal 1. cont to trend. covering with ceftriaxone and azithromycin. otherwise does not appear toxic. check blood cultures too. this could all be reactive. - downtrending on 08/21. cont abx 4) sinus congestion - guaifenesin. 5) chronic hyponatremia - worsened on 08/20. fluid restriction started. consult nephrology. - beer potomania? also has elevated BNP and some crackles. could be due to low effective arterial volume 6) elevated BNP - ctm fluid status. not clinically overloaded, some crackles but no edema and breathing fine 7) uncontrolled hypertension - amlodipine added this admission, now controlled. 8) altered mental status - delirium 2/2 hyponatremia, alcoholic dementa or other causes of dementia. he appears cohesive every time i conduct an evaluation. CT head negative. lab workup widely negative so far. pending MRI MRA brain. ctm otherwise. 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 per the this started happening on 08/19 so he is out of window. - restart aspirin when taking PO, start statin and consider DAPT, although may not be the best course since he will be on AC for a fib as well. will consult neurology for assistance FEN: saline lock IV. cardiac diet. 1800 cc fluid restriction per day GI prophylaxis: not indicated DVT prophylaxis: heparin gtt Lines: pIV Code Status: Full Code Dispo: stable. More than 35 minutes spent on chart review, patient interaction and assessment and plan. Subjective Date/time seen: 08/21/23 13:17 Interval history: pt complained of burning chest pain which started in the afternoon, around the same time he developed a fib rvr into 150's again. he denies sob, and at the moment didn't want to talk about his MRI Review of Systems Review of Systems: All systems reviewed & are unremarkable except as noted in HPI and below Exam Const: General: in distress Eyes: Pupils: Equal, round and reactive pupils present EOM: EOMs intact bilaterally Neck: Neck: supple Resp: Effort & Inspection: normal respiratory effort Auscultation: clear to auscultation bilaterally and crackles Cardio: Rate: tachycardic Rhythm: abnormal rhythm GI: GI Palp: Yes Soft to palpation and No Tenderness to palpation present (GI) Neuro: Other: deferred, pt did not want to participate Extrem: General: no edema Psych: Mental Status: mental status grossly normal Objective Data
--- NOTE | 2023-08-21 13:43 | PM.PNCARD ---
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 He is now being prepared for permanent dual-chamber pacemaker implantation which should allow for more effective treatment of his P AFib. Anticoagulation have has of course now been stopped as we are anticipating implant of a pacemaker device this afternoon. He should not be started on anticoagulation until further notice after completion of this procedure as we wish to avoid a pocket hematoma. Rajeev Spear MD [facility] Subjective Date/time seen: date of service:08/21/23 13:43 Interval history: 82-year-old man with: Diagnosis of paroxysmal atrial fibrillation as well as sick sinus syndrome with long conversion pauses. Plan for permanent pacemaker implant today as per my partner saw him yesterday. This morning when I saw the patient he was in sinus rhythm. Short time ago he converted back to atrial fib with heart rates in the 150s. He was given intravenous diltiazem to control the heart rate prior to proceeding with pacemaker implantation. IV heparin was discontinued this morning Exam Const: General: comfortable and no acute distress Other: pleasant elderly gentleman no distress HENMT: Mouth: Yes moist mucous membranes Eyes: Sclera: sclerae normal Pupils: Equal, round and reactive pupils present Neck: Neck: supple Other: carotid pulses are unremarkable bilaterally Resp: Effort & Inspection: normal respiratory effort Auscultation: clear to auscultation bilaterally Cardio: Rhythm: abnormal rhythm irregularly irregular GI: GI Palp: Yes Soft to palpation Auscultation: normal bowel sounds Skin: General skin exam: normal color Neuro: Other: alert and oriented x3 Extrem: Other: good perfusion, no edema Objective Data Vital Signs Vital Signs: Vital Signs - 24 hr 08/20/23 16:00 08/20/23 16:00 08/20/23 14:00 Temperature 36.4 C Pulse Rate 70 60 Pulse Rate [Bilateral Pedal (Dorsalis Pedis) Palpation] Respiratory Rate 20 Blood Pressure 127/55 L Pulse Oximetry 98 99 Oxygen Delivery Room Air 08/20/23 16:00 08/20/23 18:00 08/20/23 19:46 Temperature 36.3 C L Pulse Rate 72 72 72 Pulse Rate [Bilateral Pedal (Dorsalis Pedis) Palpation] Respiratory Rate 18 Blood Pressure 155/80 H Pulse Oximetry 99 Oxygen Delivery 08/20/23 20:00 08/20/23 20:00 08/20/23 22:00 Temperature Pulse Rate 77 75 Pulse Rate [Bilateral Pedal (Dorsalis Pedis) Palpation] 77 Respiratory Rate Blood Pressure Pulse Oximetry Oxygen Delivery 08/21/23 00:00 08/21/23 00:00 08/21/23 02:00 Temperature 36.6 C Pulse Rate 74 73 77 Pulse Rate [Bilateral Pedal (Dorsalis Pedis) Palpation] Respiratory Rate 16 Blood Pressure 142/52 H Pulse Oximetry 95 Oxygen Delivery 08/21/23 03:46 08/21/23 04:00 08/21/23 06:00 Temperature Pulse Rate 79 74 82 Pulse Rate [Bilateral Pedal (Dorsalis Pedis) Palpation] Respiratory Rate 18 Blood Pressure 127/52 L Pulse Oximetry 94 Oxygen Delivery 08/21/23 07:30 08/21/23 09:25 08/21/23 12:23 Temperature 36.1 C L Pulse Rate 77 135 H Pulse Rate [Bilateral Pedal (Dorsalis Pedis) Palpation] Respiratory Rate 18 Blood Pressure 174/81 H 177/91 H Pulse Oximetry 100 Oxygen Delivery 08/21/23 13:00 08/21/23 12:00 Temperature 36.4 C L Pulse Rate 138 H 80 Pulse Rate [Bilateral Pedal (Dorsalis Pedis) Palpation] Respiratory Rate 20 Blood Pressure 173/70 H 173/70 H Pulse Oximetry 96 Oxygen Delivery Intake/Output Intake/Output: Intake & Output 08/18/23 08/19/23 08/20/23 08/21/23 23:59 23:59 23:59 23:59 Intake Total 2630 1068.7 300 Ou
--- NOTE | 2023-08-21 15:07 | ECG_ITS ---
Measurements Intervals [place] Rate: 84 P: [place]: 0 QRS: 3 QRSD: 84 T: 52 QT: 354 QTc: 419 Interpretive Statements ATRIAL FIBRILLATION VENTRICULAR PREMATURE COMPLEX EARLY PRECORDIAL R/S TRANSITION ST ELEVATION IN ANTERIOR LEADS- PROBABLY EARLY REPOLARIZATION ABNORMALITY ABNORMAL ECG COMPARED TO ECG 08/21/2023 11:58:16 HEART RATE HAS DECREASED Electronically Signed On 08-21-2023 16:11:18 LIABILITY CLAIMS EXAMINER by Santy Zaragoza D.O.
--- NOTE | 2023-08-21 15:09 | WPDCARDPROC ---
Cardiac Cath Procedure Note Date of procedure:: 08/21/23 Performing physician:: Rajeev Spear MD Indication:: paroxysmal atrial fib with sick sinus syndrome and symptomatic asystolic pauses Brief clinical history:: this is an 82-year-old man with paroxysmal atrial fib newly diagnosed. He is exhibiting significant conversion pauses with asystole for 6-7 seconds. To allow for treatment of his atrial fib a dual-chamber pacemaker has been recommended. Procedure Procedure performed:: Implantation of permanent dual-chamber Biotronik pacemaker Sedation/Medication given:: fentanyl 50 mg Versed 2 mg case start time 2:02 p.m. case end time 3:01 p.m. sedation provided by Sarah Magana RN, trained observer Access site:: left anterior chest wall Estimated blood loss:: 30 cc Procedure note:: patient was brought to the cardiac catheterization lab in the postabsorptive state the left anterior chest wall was prepped and draped in the usual sterile fashion. 1% lidocaine was infiltrated inferior to the clavicle. An incision was then made midclavicular line to the deltopectoral groove. Sharp and blunt dissection was used to separate the subcutaneous tissue to the level of the prepectoral fascia. Electrocautery was used to provide hemostasis. Blunt dissection was used to create a pacemaker pocket inferior to the incision. antibiotic soaked 4 x 4 was placed into the pocket. Attention was then turned to venous access. Using 2 6 [place] SafeSheath kits the left subclavian vein was punctured twice and the J wires were advanced under fluoroscopic visualization to the level of right atrium. Using the safe sheaths 2 pacemaker leads mentioned below were advanced into the venous circulation to the level of the right atrium. Attention was then turned to ventricular lead positioning. The stylet was removed the ventricular lead used a 5 cc syringe to form a J-tip on the stylet and then used this to steer the lead through the right ventricle out into the pulmonary position. A straight stylet was placed back into the lead was withdrawn and placed into the right ventricular apical septal position. The fixation screw was deployed good pacing and sensing forms was demonstrated and a tendril stimulation showed no sign of extracardiac stimulation. Attention was then turned to positioning the atrial lead. The straight stylet was then withdrawn from the lead and a preformed atrial J was placed into the lead. This was then placed fluoroscopic Irma into the right atrial appendage position. The patient was in atrial fibrillation at the time of the implant. The fixation screw was deployed and upon withdrawal of the stylet the lead was fixed into position. There was good pacing impedance and a 10 pole stimulus also showed no evidence of extracardiac stimulation. AFib precluded further testing of the lead. The leads were then sutured to the base of the pocket using the suture sleeves and 2-0 silk ties. The pocket was irrigated with antibiotic infused saline. The retained sponge was removed from pocket and a pacemaker device was connected to the leads using the torque wrench. The entire assembly was then placed into the newly created pocket. This was then closed in layers using 3-0 Vicryl in an interrupted fashion for the subcutaneous tissue and 4-0 Vicryl in a running subcuticular fashion for the skin. The wound was dressed with an Aquacel dressing and a pressure dressing left arm was placed in an immobilizer. Postop bed rest was ordered as well as postop antibiotics chest x-ray and EKG. Findings:: Patient received a Biotronik dual-chamber pacemaker model Amvia Edge [id number], serial number [id number]. device is programmed in the DDD/CLS mode lower rate limit 60 upper rate limit 120. The atrial lead is a Biotronik screw-in bipolar lead model Solia [id number]. serial number [id number]. atrial fib waves are sensed at 1.1 mV impedance 5
[2023-08-21 18:07] LABS: Glucose Point of Care 115 mg/dl (65-105)
[2023-08-21] MEDS: cefTRIAXone 2 GM/NS 100 ML 2 GM/100 ML BAG IVPB (19:57)
[2023-08-21 20:47] LABS: Glucose Point of Care 139 mg/dl (65-105)
--- NOTE | 2023-08-21 22:14 | ECG_ITS ---
Measurements Intervals [place] Rate: 85 P: [place]: 0 QRS: 2 QRSD: 94 T: 45 QT: 380 QTc: 453 Interpretive Statements ATRIAL FIBRILLATION ST ELEVATION IN ANTEROLATERAL LEADS- PROBABLY EARLY REPOLARIZATION ABNORMAL ECG COMPARED TO ECG 08/21/2023 15:32:49 NO SIGNIFICANT CHANGES Electronically Signed On 08-22-2023 16:17:33 CRM ANALYST by Santy Zaragoza D.O.
[2023-08-22] VITALS (17 sets, daily range): BP systolic 104–113; BP diastolic 55–77; PULSE 70–104; RESP 16–24; TEMP 35.8–36.6; O2SAT 93–100
[2023-08-22] MEDS: VANCOMYCIN 1,000 MG/NS 250 ML 1,000 MG/250 ML BAG 250 MG IVPB (00:24)
[2023-08-22 05:15] LABS: Basophils Absolute Auto 0.1 K/mm3 (0.0-0.1); Basophils Percent Auto 0.4 % (0.2-1.2); Eosinophils Absolute Auto 0.6 K/mm3 (0-0.3); Eosinophils Percent Auto 4.2 % (0-4.4); Hematocrit 40.2 % (42.0-52.0); Hemoglobin 13.8 g/dL (14.0-18.0); Immature Granulocyte Absolute 0.04 K/mm3 (0.00-0.031); Immature Granulocyte Percent A 0.3 % (0-0.5); Lymphocytes Absolute Auto 2.87 K/mm3 (0.9-3.2); Lymphocytes Percent Auto 21.4 % (18.3-44.2); Mean Corpuscular HGB Conc 34.3 g/dl (32-36); Mean Corpuscular Hemoglobin 32.1 pg (26-34); Mean Corpuscular Volume 93.5 fl (80-100); Mean Platelet Volume 10.6 fl (7.4-10.4); Monocytes Absolute Auto 1.5 K/mm3 (0.1-0.6); Monocytes Percent Auto 11.5 % (2.6-8.5); Neutrophils Absolute Auto 8.3 K/mm3 (1.3-6.7); Neutrophils Percent Auto 62.2 % (45.5-73.1); Platelet Count Result 295 k/mm3 (150-375); Red Cell Distribution Width 12.1 % (11.5-14.5); White Blood Count 13.4 K/mm3 (4.5-10.0)
[2023-08-22 05:30] LABS: Anion Gap 9 mmol/L (8-16); Blood Urea Nitrogen 16 mg/dL (9-20); Calcium 8.6 mg/dL (8.4-10.2); Carbon Dioxide 24 mmol/L (22-30); Chloride 96 mmol/L (98-107); Estimated CRCL calculation 71 ml/min; Estimated Glomerular Filt Rate > 60; Glucose 100 mg/dL (65-110); Magnesium 1.9 mg/dL (1.6-2.3); Potassium 3.7 mmol/L (3.4-5.0); Sodium 129 mmol/L (137-145)
[2023-08-22 05:43] LABS: Procalcitonin 0.1 ng/mL
[2023-08-22 07:59] LABS: Glucose Point of Care 97 mg/dl (65-105)
[2023-08-22 08:19] LABS: Cortisol Random 8.65 ug/dL
[2023-08-22] MEDS: ASPIRIN 81 MG ENTERIC TABLET PO (09:47)
[2023-08-22] MEDS: OMEGA 3 POLYUNSAT FATTY ACIDS 1 GM CAP PO (09:47)
[2023-08-22] MEDS: levETIRAcetam 500 MG TABLET PO ×2 (09:47→20:07)
[2023-08-22] MEDS: amLODIPine BESYLATE 5 MG TABLET 10 MG PO (09:47)
[2023-08-22] MEDS: THIAMINE HCL 200 MG/2 ML VIAL 100 MG IV PUSH (09:47)
[2023-08-22] MEDS: guaiFENesin 12 HR 600 MG TABCR PO ×2 (09:47→20:08)
[2023-08-22] MEDS: FOLIC ACID 0.4 MG TABLET PO (09:47)
[2023-08-22] MEDS: SOTALOL HCL 80 MG TABLET PO ×2 (09:48→20:08)
[2023-08-22] MEDS: FLUTICASONE PROPIONATE 0.05% NA SPR 16 GM BTL (*BKC) 1 SPRAY NASAL ×2 (09:58→20:08)
--- NOTE | 2023-08-22 11:11 | ECG_ITS ---
Measurements Intervals [place] Rate: 79 P: [place]: 0 QRS: -10 QRSD: 93 T: 57 QT: 373 QTc: 428 Interpretive Statements ATRIAL FIBRILLATION ELECTRONIC VENTRICULAR COMPLEX ST ELEVATION IN ANTEROLATERAL LEADS- PROBABLY EARLY REPOLARIZATION ABNORMALITY ABNORMAL ECG COMPARED TO ECG 08/21/2023 22:14:43 NO SIGNIFICANT CHANGES Electronically Signed On 08-22-2023 16:24:12 OFFSHORE WIND TURBINE TECHNICIAN by Santy Zaragoza D.O.
[2023-08-22 11:51] LABS: Glucose Point of Care 136 mg/dl (65-105)
--- NOTE | 2023-08-22 12:41 | PM.PNCARD ---
Progress Note: A&P Assessment and Plan (1) Paroxysmal A-fib: Code(s): I48.0 - Paroxysmal atrial fibrillation Status: Acute Assessment and Plan: Patient has been found to have new onset paroxysmal atrial fibrillation. Heart rate is reasonably controlled now, 90-100. --counseled patient and about his AFib --continue sotalol 80 mg Q 12 --check EKG after each dose to follow for any QT interval and continue telemetry monitoring to evaluate for any proarrhythmic effects --start anticoagulant when risk of bleeding from incision is reduced --Hopefully can discharge Thursday. 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 (3) Chest pain: Code(s): R07.9 - Chest pain, unspecified Status: Acute Assessment and Plan: Chest burning when AFib RVR. May have some degree of underlying CAD but this does not appear to be in ACS event. --Lexiscan Thursday (4) Altered mental status: Qualifiers: Altered mental status type: unspecified Qualified Code(s): R41.82 - Altered mental status, unspecified Code(s): R41.82 - Altered mental status, unspecified Status: Acute Assessment and Plan: Had altered mental status on admission and was found have a small occipital stroke. There was will concerned that part of this may be due to alcohol withdrawal and hyponatremia as well. I wonder if he has some mild cognitive dysfunction at baseline because of his atherosclerotic cerebrovascular disease but in any case it has improved. (5) Status post stroke: Code(s): Z86.73 - Personal history of transient ischemic attack (TIA), and cerebral infarction without residual deficits Status: Acute Assessment and Plan: Probably cardioembolic but he does have atherosclerotic cerebrovascular disease. --continue aspirin --add atorvastatin 40 mg daily (6) Hypertension: Code(s): I10 - Essential (primary) hypertension Status: Acute Assessment and Plan: Controlled currently, quite high on admission, states compliant with medications. --continue amlodipine (7) Hyponatremia: Code(s): E87.1 - Hypo-osmolality and hyponatremia Status: Chronic Assessment and Plan: History of hyponatremia, was 127, sodium now 129. (8) Elevated brain natriuretic peptide (BNP) level: Code(s): R79.89 - Other specified abnormal findings of blood chemistry Status: Acute Assessment and Plan: Elevated pro-BNP of 3200, no CHF on CXR or MANCUSO; May be subclinical CHF 2nd to PAF and diastolic dysfxn. (9) Alcoholism: Code(s): F10.20 - Alcohol dependence, uncomplicated Status: Chronic Assessment and Plan: Drinks 5-6 beers /day and sometimes more. On etoh withdrawal protocol. Patient advises AFib will be more difficult to control yellow stool continues to o'clock drink heavily. (10) Chronic sinusitis, unspecified: Code(s): J32.9 - Chronic sinusitis, unspecified Status: Acute Assessment and Plan: One of Pt's main sx was sinus congestion. Started on antibiotics per hospitalist. Subjective Date/time seen: 08/22/23 12:41 Interval history: Follow-up for tachy-lakhwinder syndrome, status post dual-chamber pacemaker implant 08/21/2023. Sotalol also initiated 08/21/2023 to try to maintain sinus rhythm. Patient admitted with altered mental status and paroxysmal AFib RVR with significant pauses. MRA showed a small acute infarct of the left occipital lobe and moderate to severe chronic microvascular disease. Also has elevated troponins (flat curve), hypertension, chest discomfort, hyponatremia, and possible alcohol abuse. Date of service 08/22/2023: Feeling better. Does admit to some chest burning yesterday when he had AFib RVR. 08/22/2023 EKG: AFib rate 79, ventricularly paced peace
--- NOTE | 2023-08-22 14:45 | P.PNNP_ITS ---
Progress Note: A&P Assessment and Plan (1) Hyponatremia: Code(s): E87.1 - Hypo-osmolality and hyponatremia Status: Chronic Assessment and Plan: * chronic issue that dates back to 2019 * from 2019 - 2021, sodium was running around 128 - 134mmol/L * since 2022, sodium running 126 - 130mmol/L * does have a history of excessive beer/alcohol intake. * he also drinks a lot of water because of his sinuses. * evaluation to date: * TSH okay * head CT negative * MRI of brain with acute CVA * check cortisol Is low but he is on Fluticasone. * Urine sodium is a little low. * SPEP/UPEP, serum/urine osmolality Are pending * already on fluid restriction of 1800cc. I do not think he can realistically be restricted any more than this because of his sinuses. * Check another sodium level in the morning. * (2) Altered mental status: Qualifiers: Altered mental status type: unspecified Qualified Code(s): R41.82 - Altered mental status, unspecified Code(s): R41.82 - Altered mental status, unspecified Status: Acute Assessment and Plan: * apparently an issue ~ 2 days prior to admission * etiology not clear but several concerns: * due to acute CVA (as per brain MRI)? * hyponatremia? * alcohol related? * hypertension related? -- quite elevated on admission * other? * Mental status seems to be pretty good right now. 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 (4) Paroxysmal A-fib: Code(s): I48.0 - Paroxysmal atrial fibrillation Status: Acute Assessment and Plan: * rate control strategy * anticoagulation as per Cardiology (5) Hypertension: Code(s): I10 - Essential (primary) hypertension Status: Acute Assessment and Plan: * Blood pressure is under good control right now. (6) Alcoholism: Code(s): F10.20 - Alcohol dependence, uncomplicated Status: Chronic Assessment and Plan: * reportedly drinks ~ 5-6 beers /day and sometimes more * monitor for withdrawal Subjective Date/time seen: 08/22/23 14:45 Interval history: Andre is feeling better. He still has sinus drainage which is chronic for him. This makes him thirsty which is why he drinks a lot of water. Review of Systems Cardiovascular: Cardiovascular: Reports no additional cardiovascular complaints Respiratory: Respiratory: Reports no additional respiratory complaints Gastrointestinal: Gastrointestinal: Reports no additional gastrointestinal complaints Genitourinary: Genitourinary: Reports no additional male genitourinary complaints Exam Narrative: WDWN in NAD skin no rash head ncat lungs clear bilaterally cor reg no rub abd BS+ nontender and soft ext no edema. Objective Data Vital Signs Vital Signs: Vital Signs - 24 hr 08/21/23 15:20 08/21/23 15:30 08/21/23 15:45 Temperature Pulse Rate 99 90 93 Respiratory Rate 16 14 16 Blood Pressure 118/70 106/82 103/60 Pulse Oximetry 98 97 97 Oxygen Delivery Room Air Room Air Room Air
--- NOTE | 2023-08-22 14:45 | PM.PNNEP ---
Progress Note: A&P Assessment and Plan (1) Hyponatremia: Code(s): E87.1 - Hypo-osmolality and hyponatremia Status: Chronic Assessment and Plan: chronic issue that dates back to 2019 from 2019 - 2021, sodium was running around 128 - 134mmol/L since 2022, sodium running 126 - 130mmol/L does have a history of excessive beer/alcohol intake. he also drinks a lot of water because of his sinuses. evaluation to date: TSH okay head CT negative MRI of brain with acute CVA check cortisol Is low but he is on Fluticasone. Urine sodium is a little low. SPEP/UPEP, serum/urine osmolality Are pending already on fluid restriction of 1800cc. I do not think he can realistically be restricted any more than this because of his sinuses. Check another sodium level in the morning. (2) Altered mental status: Qualifiers: Altered mental status type: unspecified Qualified Code(s): R41.82 - Altered mental status, unspecified Code(s): R41.82 - Altered mental status, unspecified Status: Acute Assessment and Plan: apparently an issue ~ 2 days prior to admission etiology not clear but several concerns: due to acute CVA (as per brain MRI)? hyponatremia? alcohol related? hypertension related? -- quite elevated on admission other? Mental status seems to be pretty good right now. 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 (4) Paroxysmal A-fib: Code(s): I48.0 - Paroxysmal atrial fibrillation Status: Acute Assessment and Plan: rate control strategy anticoagulation as per Cardiology (5) Hypertension: Code(s): I10 - Essential (primary) hypertension Status: Acute Assessment and Plan: Blood pressure is under good control right now. (6) Alcoholism: Code(s): F10.20 - Alcohol dependence, uncomplicated Status: Chronic Assessment and Plan: reportedly drinks ~ 5-6 beers /day and sometimes more monitor for withdrawal Subjective Date/time seen: 08/22/23 14:45 Interval history: Andre is feeling better. He still has sinus drainage which is chronic for him. This makes him thirsty which is why he drinks a lot of water. Review of Systems Cardiovascular: Cardiovascular: Reports no additional cardiovascular complaints Respiratory: Respiratory: Reports no additional respiratory complaints Gastrointestinal: Gastrointestinal: Reports no additional gastrointestinal complaints Genitourinary: Genitourinary: Reports no additional male genitourinary complaints Exam Narrative: WDWN in NAD skin no rash head ncat lungs clear bilaterally cor reg no rub abd BS+ nontender and soft ext no edema. Objective Data Vital Signs Vital Signs: Vital Signs - 24 hr 08/21/23 15:20 08/21/23 15:30 08/21/23 15:45 Temperature Pulse Rate 99 90 93 Respiratory Rate 16 14 16 Blood Pressure 118/70 106/82 103/60 Pulse Oximetry 98 97 97 Oxygen Delivery Room Air Room Air Room Air 08/21/23 16:00 08/21/23 16:15 08/21/23 17:00 Temperature 97.2 F L Pulse Rate 96 73 99 Respiratory Rate 16 16 24 H Blood Pressure 99/67 L 93/71 L 91/57 L Pulse Oximetry 96 96 98 Oxygen Delivery Room Air Room Air 08/21/23 17:31 08/21/23 18:39 08/21/23 18:00 Temperature 96.6 F L 97 F L Pulse Rate 78 76 76 Respiratory Rate 18 20 Blood Pressure 97/45 L 123/58 L Pulse Oximetry 97 98 Oxygen Delivery 08/21/23 16:00 08/21/23 19:44 08/21/23 20:04 Temperature 97.8 F Pulse Rate 82 70 Respiratory Rate 18 Blood Pressure 112/46 L Pulse Oximetry 98 Oxygen Delivery Room Air 08/21/23 20:52 08/21/23 20:00 08/21/23 22:00 Temperature Pulse R
[2023-08-22] MEDS: COSYNTROPIN 0.25 MG/ML VIAL IV PUSH (16:12)
[2023-08-22 16:31] LABS: Glucose Point of Care 158 mg/dl (65-105)
--- NOTE | 2023-08-22 17:35 | PM.IMPN ---
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 going for follow up x ray now. no pain or drainage cardiology started sotalol. cont tele and monitor QTC. currently improved, now in low 100's a fib leukocytosis. follow procalcitonin and repeat wbc. cont abx. likely all reactive. pending blood cultures hyponatremia improved. this is chronic. could be multimodal, but he has been on keppra for some time, could be adverse effect. TIA. all symptoms resolved. visual aaron intact. cont aspirin and statin. neurology consult shyan on thursday full code scd's. to restart AC for afib tomorrow, will clear with cardiology. Subjective Date/time seen: 08/22/23 17:35 Interval history: NAOE. patient appears back to his baseline, no complaints of chest pain or sob. he is content. Review of Systems Review of Systems: All systems reviewed & are unremarkable except as noted in HPI and below Exam Const: General: comfortable and no acute distress Eyes: Pupils: Equal, round and reactive pupils present Neck: Neck: supple Resp: Effort & Inspection: normal respiratory effort Auscultation: clear to auscultation bilaterally Cardio: Rate: regular rate Rhythm: regular rhythm Heart sounds: no gallops, no murmurs and no rubs GI: Inspection: non-distended GI Palp: Yes Soft to palpation and No Tenderness to palpation present (GI) Auscultation: normal bowel sounds Extrem: General: no edema Objective Data Vital Signs Vital Signs: Vital Signs - 24 hr 08/21/23 18:39 08/21/23 18:00 08/21/23 19:44 Temperature 97 F L 97.8 F Pulse Rate 76 76 82 Respiratory Rate 20 18 Blood Pressure 123/58 L 112/46 L Pulse Oximetry 98 98 Oxygen Delivery 08/21/23 20:04 08/21/23 20:52 08/21/23 20:00 Temperature Pulse Rate 70 76 Respiratory Rate Blood Pressure Pulse Oximetry 99 Oxygen Delivery Room Air 08/21/23 22:00 08/21/23 23:32 08/22/23 00:00 Temperature 97 F L Pulse Rate 84 97 93 Respiratory Rate 16 Blood Pressure 117/73 Pulse Oximetry 98 Oxygen Delivery 08/22/23 02:00 08/22/23 04:00 08/22/23 04:00 Temperature 97.2 F L Pulse Rate 83 86 79 Respiratory Rate 18 Blood Pressure 108/77 Pulse Oximetry 97 Oxygen Delivery 08/22/23 05:13 08/22/23 07:58 08/22/23 08:00 Temperature 97.8 F Pulse Rate 72 84 97 Respiratory Rate 20 Blood Pressure 104/74 Pulse Oximetry 96 Oxygen Delivery 08/22/23 09:48 08/22/23 11:53 08/22/23 08:00 Temperature 96.4 F L Pulse Rate 97 93 Respiratory Rate 20 Blood Pressure 111/59 L Pulse Oximetry 93 Oxygen Delivery Room Air 08/22/23 12:00 08/22/23 10:00 08/22/23 12:00 Temperature Pulse Rate 90 99 Respiratory Rate Blood Pressure Pulse Oximetry Oxygen Delivery Room Air 08/22/23 14:00 08/22/23 16:00 08/22/23 16:00 Temperature 97.9 F Pulse Rate 70 86 Respiratory Rate 24 H Blood Pressure 104/55 L Pulse Oximetry 100 Oxygen Delivery Room Air Intake/Output Intake/Output: Intake & Output 08/19/23 08/20/23 08/21/23 08/22/23 23:59 23:59 23:59 23:59 Intake Total 2630 1168.7 1020 968 Output Total 700 1625 2450 200 Balance 1930 -456.3 -1430 768 Meds/Results Medications: Active Medications Generic Name Dose Route Start Last Admin Trade Name Freq PRN Reason Stop Dose Admin Acetaminophen 650 mg 08/19/23 10:19 08/20/23 12:46 Acetaminophen 325 Mg Tablet PO 650 mg Q4H PRN Administration Headache Am
[2023-08-22] MEDS: cefTRIAXone 2 GM/NS 100 ML 2 GM/100 ML BAG IVPB (20:00)
[2023-08-22] MEDS: IPRATROPIUM NASAL SPRAY 0.03% 15 ML BOTTLE 2 SPRAY NASAL (20:08)
[2023-08-22 20:55] LABS: Glucose Point of Care 128 mg/dl (65-105)
--- NOTE | 2023-08-22 22:00 | ECG_ITS ---
Measurements Intervals [place] Rate: 97 P: [place]: 0 QRS: -2 QRSD: 72 T: 51 QT: 350 QTc: 445 Interpretive Statements ATRIAL FIBRILLATION EARLY PRECORDIAL R/S TRANSITION ABNORMAL ECG COMPARED TO ECG 08/22/2023 11:54:29 NO SIGNIFICANT CHANGES Electronically Signed On 08-23-2023 6:54:16 MAINTENANCE SUPERVISOR by Santy Zaragoza D.O.
[2023-08-23] VITALS (15 sets, daily range): BP systolic 116–178; BP diastolic 64–78; PULSE 60–101; RESP 16–24; TEMP 36.1–36.6; O2SAT 94–100
[2023-08-23 01:14] LABS: Total Protein Urine Random 22 mg/dL
[2023-08-23 01:22] LABS: Creatinine Urine 123.1 mg/dL; Ur Ttl Prot Creatinine Ratio 0.18 mg/mg (0-0.20)
[2023-08-23 05:48] LABS: Basophils Absolute Auto 0.1 K/mm3 (0.0-0.1); Basophils Percent Auto 0.4 % (0.2-1.2); Eosinophils Absolute Auto 0.3 K/mm3 (0-0.3); Eosinophils Percent Auto 2.6 % (0-4.4); Hematocrit 40.3 % (42.0-52.0); Hemoglobin 13.6 g/dL (14.0-18.0); Immature Granulocyte Absolute 0.05 K/mm3 (0.00-0.031); Immature Granulocyte Percent A 0.4 % (0-0.5); Lymphocytes Absolute Auto 2.92 K/mm3 (0.9-3.2); Lymphocytes Percent Auto 24.9 % (18.3-44.2); Mean Corpuscular HGB Conc 33.7 g/dl (32-36); Mean Corpuscular Hemoglobin 32.2 pg (26-34); Mean Corpuscular Volume 95.3 fl (80-100); Mean Platelet Volume 10.9 fl (7.4-10.4); Monocytes Absolute Auto 1.4 K/mm3 (0.1-0.6); Monocytes Percent Auto 11.6 % (2.6-8.5); Neutrophils Percent Auto 60.1 % (45.5-73.1); Platelet Count Result 294 k/mm3 (150-375); Red Blood Count 4.23 M/mm3 (4.6-6.20); Red Cell Distribution Width 11.9 % (11.5-14.5); White Blood Count 11.7 K/mm3 (4.5-10.0)
[2023-08-23 05:59] LABS: Albumin Level 3.4 g/dL (3.5-5.1); Anion Gap 7 mmol/L (8-16); Blood Urea Nitrogen 21 mg/dL (9-20); Calcium 8.5 mg/dL (8.4-10.2); Carbon Dioxide 27 mmol/L (22-30); Chloride 96 mmol/L (98-107); Estimated CRCL calculation 72 ml/min; Estimated Glomerular Filt Rate > 60; Glucose 102 mg/dL (65-110); Phosphorus 3.1 mg/dL (2.5-4.5); Potassium 3.8 mmol/L (3.4-5.0); Sodium 130 mmol/L (137-145)
[2023-08-23 06:21] LABS: Procalcitonin 0.1 ng/mL
[2023-08-23 08:37] LABS: Glucose Point of Care 99 mg/dl (65-105)
[2023-08-23] MEDS: ATORVASTATIN 40 MG TABLET PO (09:13)
[2023-08-23] MEDS: FOLIC ACID 0.4 MG TABLET PO (09:13)
[2023-08-23] MEDS: OMEGA 3 POLYUNSAT FATTY ACIDS 1 GM CAP PO (09:13)
[2023-08-23] MEDS: amLODIPine BESYLATE 5 MG TABLET 10 MG PO (09:13)
[2023-08-23] MEDS: FLUTICASONE PROPIONATE 0.05% NA SPR 16 GM BTL (*BKC) 1 SPRAY NASAL ×2 (09:13→20:30)
[2023-08-23] MEDS: guaiFENesin 12 HR 600 MG TABCR PO ×2 (09:13→20:29)
[2023-08-23] MEDS: THIAMINE HCL 200 MG/2 ML VIAL 100 MG IV PUSH (09:13)
[2023-08-23] MEDS: levETIRAcetam 500 MG TABLET PO ×2 (09:13→20:30)
[2023-08-23] MEDS: ASPIRIN 81 MG ENTERIC TABLET PO (09:13)
[2023-08-23] MEDS: SOTALOL HCL 80 MG TABLET PO ×2 (09:13→20:29)
--- NOTE | 2023-08-23 10:00 | ECG_ITS ---
Measurements Intervals [place] Rate: 62 P: 31 IN: 182 QRS: -2 QRSD: 98 T: 26 QT: 417 QTc: 426 Interpretive Statements SINUS RHYTHM POSSIBLE LEFT ATRIAL ENLARGEMENT EARLY PRECORDIAL R/S TRANSITION ST ELEVATION IN ANTERIOR LEADS- PROBABLY EARLY REPOLARIZATION ABNORMALITY BORDERLINE ECG COMPARED TO ECG 08/22/2023 22:20:44 SINUS RHYTHM NOW PRESENT Electronically Signed On 08-23-2023 14:28:36 TUBE ROOM SUPERVISOR by Santy Zaragoza D.O.
--- NOTE | 2023-08-23 10:44 | WPDNEURCNPN ---
Assessment and Plan Assessment and plan (1) Status post stroke: Code(s): Z86.73 - Personal history of transient ischemic attack (TIA), and cerebral infarction without residual deficits Status: Acute Plan 1 status post stroke with abnormal MRI but negative MR a for any occlusion or aneurysm. Initial CT scan of the head was negative 2 medication continued as such Consult date: 08/23/23 HPI: Andre Steward is a 82 year old male Admitted to the hospital through the emergency room for the complaints of chest pressure of 48hours duration, medications in the ER included aspirin 81mg daily folic acid 0.4mg daily and notedly patient allergic to multiple medications, ongoing history of hypertension, hyperlipidemia, paroxysmal atrial fibrillation, and seizure disorder, history of smoking pack years 40 with former smoker, currently alcohol intake or 21 drinks per week, seen by the enrolled nurse for the paroxysmal atrial fibrillation, treated with anticoagulation, also underlying tachy-lakhwinder syndrome and follow-up cardiological complication for which he is being treated accordingly, noted to have change in the mental status with family making the statement the symptomatology began over the last 2 days, does have ongoing history of hypertension, most recent labs with WBC 11.7 hemoglobin 13.6, sodium 130 BUN 21 glucose 99 albumin only 3.4 immuno electrophoresis pending serology for all the virus is negative, brain MRI with acute infarct in left occipital lobe with no bleed but small in size in addition to moderate to severe chronic microvascular changes, brain MRA without any occlusion or aneurysm, pacemaker has been inserted sotalol has been continued electrolytes are improving evaluated and treated for TIA and remains afebrile. Indications include aspirin 81mg daily all other medications PMFSH Past Medical History Medical History (Updated 08/22/23 @ 13:05 by Krista Pelayo MD) Altered mental status COVID-19 Essential (primary) hypertension Hypertension Hyponatremia Mixed hyperlipidemia Paroxysmal A-fib Seizure Status post stroke Tachy-lakhwinder syndrome Surgical History Surgical History H/O abdominal surgery Abdominal umbilical hernia repair with multiple complications and least 2 more surgeries after that. H/O cataract extraction H/O colonoscopy with polypectomy H/O nasal septoplasty Sinus surgery H/O sinus surgery X3 History of removal of pigmented skin lesion History of tonsillectomy and adenoidectomy Family History Family History Father Hypertension Cerebrovascular accident Mother Family history of congestive heart failure Family history of heart disease in male family member before age 55 Other Family history of allergic disorder Family history of arthritis Social History Social History Social History: The patient lives with his . He has 4 children. He drinks up to 5-6 beers a day and more on the weekends. 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 Patient quit smoking many years ago. No marijuana or illicit drugs noted. His is the durable power of maritime engineer for healthcare. Code status full code Smoking packs per day: 1.5 Smoking cigarettes per day: 30.0 Years smoked: 41 Smoking pack-years: 61.50 Smoking status: Former smoker Tobacco type: cigarettes Smoking end date: 08/06/99 Alcohol intake: current Drinks per week: 32 Alcohol use details: beer Substance use: never Substance use type: does not use Lack of Transportation: No Lack of Food: Never True Current Housing: I Have Housing Concerned About Future Housing: No Difficulty Paying Gas/Electric Bills: No Difficulty Paying for Meds: No Currently Unemployed: No Education: High School Diploma/GED Difficulty w/ Childcare or Famil
--- NOTE | 2023-08-23 11:34 | PM.PNCARD ---
Progress Note: A&P Assessment and Plan (1) Paroxysmal A-fib: Code(s): I48.0 - Paroxysmal atrial fibrillation Status: Acute Assessment and Plan: Patient has been found to have new onset paroxysmal atrial fibrillation. Converted to an maintaining sinus rhythm since 2:00 a.m. 08/23/2023 --counseled patient AFib --continue sotalol 80 mg Q 12 --check EKG after each dose to follow for any QT interval and continue telemetry monitoring to evaluate for any proarrhythmic effects. QTC is acceptable --start anticoagulant when risk of bleeding from incision is reduced, probably Thursday. --Hopefully can discharge Thursday. 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 (3) Chest pain: Code(s): R07.9 - Chest pain, unspecified Status: Acute Assessment and Plan: Chest burning when AFib RVR. May have some degree of underlying CAD but this does not appear to be in ACS event. --Lexiscan Thursday (4) Altered mental status: Qualifiers: Altered mental status type: unspecified Qualified Code(s): R41.82 - Altered mental status, unspecified Code(s): R41.82 - Altered mental status, unspecified Status: Acute Assessment and Plan: Had altered mental status on admission and was found have a small occipital stroke. There was will concerned that part of this may be due to alcohol withdrawal and hyponatremia as well. I wonder if he has some mild cognitive dysfunction at baseline because of his atherosclerotic cerebrovascular disease but in any case it has improved. -- Consider switching aspirin to Plavix and using this short-term to treat his stroke, continue anticoagulation long-term for his PAF. (5) Status post stroke: Code(s): Z86.73 - Personal history of transient ischemic attack (TIA), and cerebral infarction without residual deficits Status: Acute Assessment and Plan: Probably cardioembolic but he does have atherosclerotic cerebrovascular disease. --continue aspirin or Plavix for 2 months, continue anticoagulation long-term for PAF --added atorvastatin 40 mg daily (6) Hypertension: Code(s): I10 - Essential (primary) hypertension Status: Acute Assessment and Plan: Controlled currently, quite high on admission, states compliant with medications, now improved. --continue amlodipine (7) Hyponatremia: Code(s): E87.1 - Hypo-osmolality and hyponatremia Status: Chronic Assessment and Plan: History of hyponatremia, was 127, sodium now 130 (8) Elevated brain natriuretic peptide (BNP) level: Code(s): R79.89 - Other specified abnormal findings of blood chemistry Status: Acute Assessment and Plan: Elevated pro-BNP of 3200 on admission, no CHF on CXR or MANCUSO; May be subclinical CHF 2nd to PAF and diastolic dysfxn. (9) Alcoholism: Code(s): F10.20 - Alcohol dependence, uncomplicated Status: Chronic Assessment and Plan: Drinks 5-6 beers /day and sometimes more. On etoh withdrawal protocol. Patient advises AFib will be more difficult to control yellow stool continues to o'clock drink heavily. (10) Chronic sinusitis, unspecified: Code(s): J32.9 - Chronic sinusitis, unspecified Status: Acute Assessment and Plan: One of Pt's main sx was sinus congestion. Started on antibiotics per hospitalist. Subjective Date/time seen: 08/23/23 11:34 Interval history: Follow-up for tachy-lakhwinder syndrome, status post dual-chamber pacemaker implant 08/21/2023. Sotalol also initiated 08/21/2023 to try to maintain sinus rhythm. Patient admitted with altered mental status and paroxysmal AFib RVR with significant pauses. MRA showed a small acute infarct of the left occipital lobe and moderate to severe chronic microvascular disease. Also has eleva
--- NOTE | 2023-08-23 12:06 | P.PNNP_ITS ---
Progress Note: A&P Assessment and Plan (1) Hyponatremia: Code(s): E87.1 - Hypo-osmolality and hyponatremia Status: Chronic Assessment and Plan: * chronic issue that dates back to 2019 * from 2019 - 2021, sodium was running around 128 - 134mmol/L * since 2022, sodium running 126 - 130mmol/L * does have a history of excessive beer/alcohol intake. * he also drinks a lot of water because of his sinuses. * evaluation to date: * TSH okay * head CT negative * MRI of brain with acute CVA * check cortisol Is low but he is on Fluticasone. * Urine sodium is a little low. * SPEP/UPEP, serum/urine osmolality are pending * Management currently is just fluid restriction. * His sodium level is up to 130 today * Will continue the current management (2) Altered mental status: Qualifiers: Altered mental status type: unspecified Qualified Code(s): R41.82 - Altered mental status, unspecified Code(s): R41.82 - Altered mental status, unspecified Status: Acute Assessment and Plan: * apparently an issue ~ 2 days prior to admission * etiology not clear but several concerns: * due to acute CVA (as per brain MRI)? * hyponatremia? * alcohol related? * hypertension related? -- quite elevated on admission * other? * Mental status seems to be pretty good right now. 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 (4) Paroxysmal A-fib: Code(s): I48.0 - Paroxysmal atrial fibrillation Status: Acute Assessment and Plan: * Pulses good at 72. * Cardiology following (5) Hypertension: Code(s): I10 - Essential (primary) hypertension Status: Acute Assessment and Plan: * Blood pressure is under good control right now. (6) Alcoholism: Code(s): F10.20 - Alcohol dependence, uncomplicated Status: Chronic Assessment and Plan: * reportedly drinks ~ 5-6 beers /day and sometimes more * monitor for withdrawal Subjective Date/time seen: 08/23/23 12:06 Interval history: Andre feels okay. He is lying flat in bed. Eating and drinking okay. He is on a fluid restriction. Exam Narrative: WDWN in NAD skin no rash or subcu nodule head ncat lungs clear bilaterally cor reg no rub or gallop abd BS+ nontender and soft ext no edema. Objective Data Vital Signs Vital Signs: Vital Signs - 24 hr 08/22/23 14:00 08/22/23 16:00 08/22/23 16:00 Temperature 97.9 F Pulse Rate 70 86 Respiratory Rate 24 H Blood Pressure 104/55 L Pulse Oximetry 100 Oxygen Delivery Room Air 08/22/23 16:00 08/22/23 18:00 08/22/23 20:08 Temperature Pulse Rate 89 95 74 Respiratory Rate Blood Pressure Pulse Oximetry Oxygen Delivery 08/22/23 20:00 08/22/23 20:00 08/22/23 22:00 Temperature 97.6 F Pulse Rate 88 98 104 H Respiratory Rate 16 Blood Pressure 113/69 Pulse Oximetry 97 Oxygen Delivery
--- NOTE | 2023-08-23 12:06 | PM.PNNEP ---
Progress Note: A&P Assessment and Plan (1) Hyponatremia: Code(s): E87.1 - Hypo-osmolality and hyponatremia Status: Chronic Assessment and Plan: chronic issue that dates back to 2019 from 2019 - 2021, sodium was running around 128 - 134mmol/L since 2022, sodium running 126 - 130mmol/L does have a history of excessive beer/alcohol intake. he also drinks a lot of water because of his sinuses. evaluation to date: TSH okay head CT negative MRI of brain with acute CVA check cortisol Is low but he is on Fluticasone. Urine sodium is a little low. SPEP/UPEP, serum/urine osmolality are pending Management currently is just fluid restriction. His sodium level is up to 130 today Will continue the current management (2) Altered mental status: Qualifiers: Altered mental status type: unspecified Qualified Code(s): R41.82 - Altered mental status, unspecified Code(s): R41.82 - Altered mental status, unspecified Status: Acute Assessment and Plan: apparently an issue ~ 2 days prior to admission etiology not clear but several concerns: due to acute CVA (as per brain MRI)? hyponatremia? alcohol related? hypertension related? -- quite elevated on admission other? Mental status seems to be pretty good right now. 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 (4) Paroxysmal A-fib: Code(s): I48.0 - Paroxysmal atrial fibrillation Status: Acute Assessment and Plan: Pulses good at 72. Cardiology following (5) Hypertension: Code(s): I10 - Essential (primary) hypertension Status: Acute Assessment and Plan: Blood pressure is under good control right now. (6) Alcoholism: Code(s): F10.20 - Alcohol dependence, uncomplicated Status: Chronic Assessment and Plan: reportedly drinks ~ 5-6 beers /day and sometimes more monitor for withdrawal Subjective Date/time seen: 08/23/23 12:06 Interval history: Andre feels okay. He is lying flat in bed. Eating and drinking okay. He is on a fluid restriction. Exam Narrative: WDWN in NAD skin no rash or subcu nodule head ncat lungs clear bilaterally cor reg no rub or gallop abd BS+ nontender and soft ext no edema. Objective Data Vital Signs Vital Signs: Vital Signs - 24 hr 08/22/23 14:00 08/22/23 16:00 08/22/23 16:00 Temperature 97.9 F Pulse Rate 70 86 Respiratory Rate 24 H Blood Pressure 104/55 L Pulse Oximetry 100 Oxygen Delivery Room Air 08/22/23 16:00 08/22/23 18:00 08/22/23 20:08 Temperature Pulse Rate 89 95 74 Respiratory Rate Blood Pressure Pulse Oximetry Oxygen Delivery 08/22/23 20:00 08/22/23 20:00 08/22/23 22:00 Temperature 97.6 F Pulse Rate 88 98 104 H Respiratory Rate 16 Blood Pressure 113/69 Pulse Oximetry 97 Oxygen Delivery 08/23/23 00:00 08/23/23 00:00 08/23/23 02:00 Temperature 96.9 F L Pulse Rate 101 H 100 74 Respiratory Rate 16 Blood Pressure 116/74 Pulse Oximetry 96 Oxygen Delivery 08/22/23 23:30 08/23/23 04:00 08/23/23 04:00 Temperature 97.9 F Pulse Rate 68 64 Respiratory Rate 18 Blood Pressure 165/77 H Pulse Oximetry 96 98 Oxygen Delivery Room Air 08/23/23 06:00 08/23/23 08:00 08/23/23 09:13 Temperature 97.5 F L Pulse Rate 84 64 66 Respiratory Rate 20 Blood Pressure 139/67 Pulse Oximetry 99 Oxygen Delivery 08/23/23 08:00 08/23/23 08:00 08/23/23 10:00 Temperature Pulse Rate 66 68 72 Respiratory Rate 20 Blood Pressure Pulse Oximetry 99 Oxygen Delivery Room Air Intake/Output Intake/Output: Intake & Output 08/20/23
[2023-08-23 12:23] LABS: Glucose Point of Care 111 mg/dl (65-105)
--- NOTE | 2023-08-23 13:24 | PM.IMPN ---
Progress Note: A&P Assessment and Plan (1) Status post stroke: Code(s): Z86.73 - Personal history of transient ischemic attack (TIA), and cerebral infarction without residual deficits Status: Acute (2) Hyponatremia: Code(s): E87.1 - Hypo-osmolality and hyponatremia Status: Chronic (3) Elevated brain natriuretic peptide (BNP) level: Code(s): R79.89 - Other specified abnormal findings of blood chemistry Status: Acute (4) Hypertension: Code(s): I10 - Essential (primary) hypertension Status: Acute (5) Altered mental status: Qualifiers: Altered mental status type: unspecified Qualified Code(s): R41.82 - Altered mental status, unspecified Code(s): R41.82 - Altered mental status, unspecified Status: Acute (6) Tachy-lakhwinder syndrome: Code(s): I49.5 - Sick sinus syndrome Status: Acute (7) Paroxysmal A-fib: Code(s): I48.0 - Paroxysmal atrial fibrillation Status: Acute (8) Chest pain: Code(s): R07.9 - Chest pain, unspecified Status: Acute Plan Pt improved. change aspirin to plavix, continue atorvastatin. tomorrow we plan for stress test and to start anticoagulation for a fib. his a fib has converted with mgmt via cardiology. cont sotalol. hyponatremia improved. likely d/c abx tomorrow. wbc coming down. counseled on alcohol dependence. he is not quite ready to quit but he did compromise to only drinking max 5 beers per week. no evidence of withdrawal. continue CIWA as needed. Subjective Date/time seen: 08/23/23 13:24 Interval history: NAOE. pt is without complaints. he is apprehensive to go home again, just like on the first day he was admitted. he denies sob, chest pain, palpitation, fever, n/v/d. Review of Systems Review of Systems: All systems reviewed & are unremarkable except as noted in HPI and below Exam Const: General: comfortable and no acute distress Eyes: Pupils: Equal, round and reactive pupils present Neck: Neck: supple Resp: Effort & Inspection: normal respiratory effort Auscultation: clear to auscultation bilaterally Cardio: Rate: regular rate Rhythm: regular rhythm Heart sounds: no gallops, no murmurs and no rubs GI: GI Palp: Yes Soft to palpation and No Tenderness to palpation present (GI) Extrem: General: no edema Objective Data Vital Signs Vital Signs: Vital Signs - 24 hr 08/22/23 14:00 08/22/23 16:00 08/22/23 16:00 Temperature 97.9 F Pulse Rate 70 86 Respiratory Rate 24 H Blood Pressure 104/55 L Pulse Oximetry 100 Oxygen Delivery Room Air 08/22/23 16:00 08/22/23 18:00 08/22/23 20:08 Temperature Pulse Rate 89 95 74 Respiratory Rate Blood Pressure Pulse Oximetry Oxygen Delivery 08/22/23 20:00 08/22/23 20:00 08/22/23 22:00 Temperature 97.6 F Pulse Rate 88 98 104 H Respiratory Rate 16 Blood Pressure 113/69 Pulse Oximetry 97 Oxygen Delivery 08/23/23 00:00 08/23/23 00:00 08/23/23 02:00 Temperature 96.9 F L Pulse Rate 101 H 100 74 Respiratory Rate 16 Blood Pressure 116/74 Pulse Oximetry 96 Oxygen Delivery 08/22/23 23:30 08/23/23 04:00 08/23/23 04:00 Temperature 97.9 F Pulse Rate 68 64 Respiratory Rate 18 Blood Pressure 165/77 H Pulse Oximetry 96 98 Oxygen Delivery Room Air 08/23/23 06:00 08/23/23 08:00 08/23/23 09:13 Temperature 97.5 F L Pulse Rate 84 64 66 Respiratory Rate 20 Blood Pressure 139/67 Pulse Oximetry 99 Oxygen Delivery 08/23/23 08:00 08/23/23 08:00 08/23/23 10:00 Temperature Pulse Rate 66 68 72 Respiratory Rate 20 Blood Pressure Pulse Oximetry 99 Oxygen Delivery Room Air 08/23/23 12:00 08/23/23 12:00 Temperature 97.5 F L Pulse Rate 66 64 Respiratory Rate 24 H Blood Pressure 136/64 Pulse Oximetry 99 Oxygen Delivery Intake/Output Intake/Output: Intake & Output 08/20/23 08/21/23 08/22/23 08/23/23 23:59 23
[2023-08-23 16:39] LABS: Glucose Point of Care 93 mg/dl (65-105)
[2023-08-23 20:30] LABS: Glucose Point of Care 107 mg/dl (65-105)
[2023-08-23] MEDS: IPRATROPIUM NASAL SPRAY 0.03% 15 ML BOTTLE 2 SPRAY NASAL (20:30)
[2023-08-23] MEDS: cefTRIAXone 2 GM/NS 100 ML 2 GM/100 ML BAG IVPB (20:31)
--- NOTE | 2023-08-23 22:00 | ECG_ITS ---
Measurements Intervals [place] Rate: 66 P: 133 [place]: 214 QRS: -10 QRSD: 78 T: 24 QT: 405 QTc: 427 Interpretive Statements ELECTRONIC ATRIAL PACEMAKER RSR' IN V1 OR V2, PROBABLY NORMAL VARIANT BASELINE ARTIFACT- I, II, III, AVR, AVF BORDERLINE ECG COMPARED TO ECG 08/23/2023 10:46:42 ELECTRONIC ATRIAL PACEMAKER NOW PRESENT Electronically Signed On 08-24-2023 6:16:15 CARDIAC CARE UNIT NURSE by Santy Zaragoza D.O.
[2023-08-24] VITALS (13 sets, daily range): BP systolic 164–191; BP diastolic 75–81; PULSE 62–80; RESP 16–22; TEMP 36.1–36.5; O2SAT 96–100
[2023-08-24 05:17] LABS: Basophils Absolute Auto 0.1 K/mm3 (0.0-0.1); Eosinophils Absolute Auto 0.7 K/mm3 (0-0.3); Eosinophils Percent Auto 7.5 % (0-4.4); Hematocrit 39.3 % (42.0-52.0); Hemoglobin 13.1 g/dL (14.0-18.0); Immature Granulocyte Absolute 0.03 K/mm3 (0.00-0.031); Immature Granulocyte Percent A 0.3 % (0-0.5); Lymphocytes Absolute Auto 2.83 K/mm3 (0.9-3.2); Lymphocytes Percent Auto 29.9 % (18.3-44.2); Mean Corpuscular HGB Conc 33.3 g/dl (32-36); Mean Corpuscular Hemoglobin 31.4 pg (26-34); Mean Corpuscular Volume 94.2 fl (80-100); Mean Platelet Volume 10.5 fl (7.4-10.4); Monocytes Percent Auto 10.8 % (2.6-8.5); Neutrophils Absolute Auto 4.8 K/mm3 (1.3-6.7); Neutrophils Percent Auto 50.5 % (45.5-73.1); Platelet Count Result 301 k/mm3 (150-375); Red Blood Count 4.17 M/mm3 (4.6-6.20); Red Cell Distribution Width 11.9 % (11.5-14.5); White Blood Count 9.5 K/mm3 (4.5-10.0)
[2023-08-24 05:28] LABS: Albumin Level 3.6 g/dL (3.5-5.1); Anion Gap 7 mmol/L (8-16); Blood Urea Nitrogen 21 mg/dL (9-20); Calcium 8.7 mg/dL (8.4-10.2); Carbon Dioxide 28 mmol/L (22-30); Chloride 97 mmol/L (98-107); Estimated CRCL calculation 81 ml/min; Estimated Glomerular Filt Rate > 60; Glucose 97 mg/dL (65-110); Potassium 3.6 mmol/L (3.4-5.0); Sodium 132 mmol/L (137-145)
--- NOTE | 2023-08-24 08:00 | EST_ITS ---
Patient Info Name: Andre Steward Age: 82 years : 1940 Gender: Male Ht: 68 in Wt: 216 lbs BSA: 2.20 m2 Exam Date: 08/24/2023 10:49 AM Exam Location: Echo Lab Patient Status: Inpatient Admit Date: 08/20/2023 Staff Ordering Physician: Krista Pelayo MD Attending Provider: Nya Estrada MD Nurse: Roya Goodman APN Exam Type: CA stress rossi w NM Study Info A regadenoson stress test was performed. Summary 1. Please correlate with nuclear medicine images, reported separately. 2. No abnormal ST-T wave changes with lexiscan. 3. Supervising and interpreting physician is Dr. Danyel Goodman. Protocol: Lexiscan Stress ECG Details Stage: REST Duration (min): 2 min : 7 sec HR (bpm): 80 SBP (mmHg): 160 DBP (mmHg): 104 Stage: REST Duration (min): 26 min : 10 sec HR (bpm): 72 SBP (mmHg): 160 DBP (mmHg): 104 Stage: STAGE 1 Duration (min): 1 min : 0 sec HR (bpm): 75 SBP (mmHg): 167 DBP (mmHg): 81 Stage: RECOVERY Duration (min): 1 min : 0 sec HR (bpm): 83 SBP (mmHg): 132 DBP (mmHg): 75 Stage: RECOVERY Duration (min): 2 min : 0 sec HR (bpm): 83 SBP (mmHg): 132 DBP (mmHg): 75 Stage: RECOVERY Duration (min): 3 min : 0 sec HR (bpm): 81 SBP (mmHg): 130 DBP (mmHg): 71 Stage: RECOVERY Duration (min): 3 min : 23 sec HR (bpm): 81 SBP (mmHg): 130 DBP (mmHg): 71 Rest HR: 72 bpm Peak HR: 85 bpm Rest Sys BP: 160 mmHg Peak Sys BP: 167 mmHg Max Pred HR: 139 bpm % Max Pred HR: 61 % Target HR: 118 bpm Max RPP: 14,195 bpm*mmHg BP Response: Normal blood pressure response Termination Reason: Completed protocol Cardiac Symptoms: None Total Time: 1 min : 0 sec Rest [place] BP: 104 mmHg Peak [place] BP: 81 mmHg Total Dose: 0.4 mg Resting ECG Ectopic atrial rhythm. Stress ECG No abnormal ST/T wave changes with Lexiscan. Arrhythmias Occasional PVCs. Report Signatures
[2023-08-24 08:32] LABS: Glucose Point of Care 97 mg/dl (65-105)
[2023-08-24] MEDS: CLOPIDOGREL BISULFATE 75 MG TABLET PO (09:40)
[2023-08-24] MEDS: FOLIC ACID 0.4 MG TABLET PO (09:40)
[2023-08-24] MEDS: guaiFENesin 12 HR 600 MG TABCR PO (09:40)
[2023-08-24] MEDS: amLODIPine BESYLATE 5 MG TABLET 10 MG PO (09:40)
[2023-08-24] MEDS: ATORVASTATIN 40 MG TABLET PO (09:40)
[2023-08-24] MEDS: OMEGA 3 POLYUNSAT FATTY ACIDS 1 GM CAP PO (09:41)
[2023-08-24] MEDS: levETIRAcetam 500 MG TABLET PO (09:41)
[2023-08-24] MEDS: SOTALOL HCL 80 MG TABLET PO (09:41)
[2023-08-24] MEDS: THIAMINE HCL 200 MG/2 ML VIAL 100 MG IV PUSH (09:41)
[2023-08-24] MEDS: IPRATROPIUM NASAL SPRAY 0.03% 15 ML BOTTLE 2 SPRAY NASAL (09:44)
[2023-08-24] MEDS: FLUTICASONE PROPIONATE 0.05% NA SPR 16 GM BTL (*BKC) 1 SPRAY NASAL (09:44)
--- NOTE | 2023-08-24 10:00 | ECG_ITS ---
Measurements Intervals [place] Rate: 69 P: 116 [place]: 198 QRS: -14 QRSD: 91 T: 29 QT: 405 QTc: 437 Interpretive Statements ELECTRONIC ATRIAL PACEMAKER RSR' IN V1 OR V2, PROBABLY NORMAL VARIANT BORDERLINE ECG COMPARED TO ECG 08/23/2023 22:14:17 NO SIGNIFICANT CHANGES Electronically Signed On 08-24-2023 13:10:03 ROTARY BAR OPERATOR by Santy Zaragoza D.O.
--- NOTE | 2023-08-24 10:15 | PC.NURSE ---
pt taken to stress test via wheelchair
--- NOTE | 2023-08-24 11:55 | PC.NURSE ---
pt back from stress test
--- NOTE | 2023-08-24 12:00 | PM.PNCARD ---
Progress Note: A&P Assessment and Plan (1) Paroxysmal A-fib: Code(s): I48.0 - Paroxysmal atrial fibrillation Status: Acute Assessment and Plan: Patient has been found to have new onset paroxysmal atrial fibrillation. Converted to an maintaining sinus rhythm since 2:00 a.m. 08/23/2023 --continue sotalol 80 mg Q 12. QTc has been acceptable. Sotalol loading complete. 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 (3) Chest pain: Code(s): R07.9 - Chest pain, unspecified Status: Acute Assessment and Plan: Chest burning when AFib RVR. May have some degree of underlying CAD but this does not appear to be in ACS event. --Lexiscan today did not show any ischemia (4) Altered mental status: Qualifiers: Altered mental status type: unspecified Qualified Code(s): R41.82 - Altered mental status, unspecified Code(s): R41.82 - Altered mental status, unspecified Status: Acute Assessment and Plan: Had altered mental status on admission and was found have a small occipital stroke. There was will concerned that part of this may be due to alcohol withdrawal and hyponatremia as well. I wonder if he has some mild cognitive dysfunction at baseline because of his atherosclerotic cerebrovascular disease but in any case it has improved. -- Continue Plavix and use this short-term to treat his stroke --As above, anticoagulation long-term for his PAF with Xarelto (5) Status post stroke: Code(s): Z86.73 - Personal history of transient ischemic attack (TIA), and cerebral infarction without residual deficits Status: Acute Assessment and Plan: Probably cardioembolic but he does have atherosclerotic cerebrovascular disease. --continue aspirin or Plavix for 2 months, continue anticoagulation long-term for PAF --added atorvastatin 40 mg daily (6) Hypertension: Code(s): I10 - Essential (primary) hypertension Status: Acute Assessment and Plan: Controlled currently, quite high on admission, states compliant with medications, now improved. --continue amlodipine (7) Hyponatremia: Code(s): E87.1 - Hypo-osmolality and hyponatremia Status: Chronic Assessment and Plan: History of hyponatremia, was 127, sodium now 132 (8) Elevated brain natriuretic peptide (BNP) level: Code(s): R79.89 - Other specified abnormal findings of blood chemistry Status: Acute Assessment and Plan: Elevated pro-BNP of 3200 on admission, no CHF on CXR or MANCUSO; May be subclinical CHF 2nd to PAF and diastolic dysfxn. (9) Alcoholism: Code(s): F10.20 - Alcohol dependence, uncomplicated Status: Chronic Assessment and Plan: Drinks 5-6 beers /day and sometimes more. On etoh withdrawal protocol. Patient advises AFib will be more difficult to control yellow stool continues to o'clock drink heavily. (10) Chronic sinusitis, unspecified: Code(s): J32.9 - Chronic sinusitis, unspecified Status: Acute Assessment and Plan: One of Pt's main sx was sinus congestion. Started on antibiotics per hospitalist. Subjective Date/time seen: 08/24/23 12:00 Interval history: Follow-up for tachy-lakhwinder syndrome, status post dual-chamber pacemaker implant 08/21/2023. Sotalol also initiated 08/21/2023 to try to maintain sinus rhythm. Patient admitted with altered mental status and paroxysmal AFib RVR with significant pauses. MRA showed a small acute infarct of the left occipital lobe and moderate to severe chronic microvascular disease. Also has elevated troponins (flat curve), hypertension, chest discomfort, hyponatremia, and possible alcohol abuse. 08/21/2023: Started on sotalol, 1st dose in a.m. Date o
[2023-08-24 12:41] LABS: Glucose Point of Care 88 mg/dl (65-105)
--- NOTE | 2023-08-24 14:19 | PC.NURSE ---
retook patient's blood pressure prior to new increased dose of lisinopril; 164/75; Dr. Moore updated and received orders to NOT give the 40mg of lisinopril
--- NOTE | 2023-08-24 14:23 | PM.DS ---
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 The patient's chest pain resolved, his troponins were slightly elevated at 0.089 and then trended down. EKG did not demonstrate ACS. on 08/24 he underwent lexiscan which demonstrated normal myocardial perfusion and EF of 70%. He was, however, found to have new onset a fib during his stay, with RVR. Initially he was treated with rate control but then developed pauses seen on tele, thus dx with sick sinus tachybrady syndrome. He had a dual chamber pacemaker placed on 08/21 and sotalol was initiated by cardiology. He converted to sinus rhythm and had no more complications. he was on aspirin at home w/o no previously diagnosed CAD. the patient had transient complaint of aphasia, MRI obtained which demonstrated a small acute infarct in left occipital lobe. neurology was consulted. ultimately he is sent home on plavix instead of aspirin and atorvastatin 40mg was initiated. on discharge his neuro exam is normal, including visual aaron and speech. hx of HTN - at times elevated, amlodipine was also added. treated with ceftriaxone and azithromycin for unknown infectious etiology. pro jose manuel and leukocytosis resolving chronic hyponatremia, nephrology consulted. could be multifactorial including beer potomania and keppra use. nephrology was consulted. he was counseled extensively on the detrimental effects of alcohol abuse More than 30 minutes spent on discharge planning and documentation. Time Spent with Patient Time attestation: Total time spent providing and/or coordinating discharge services: Exam Const: General: cooperative and no acute distress Resp: Effort & Inspection: normal respiratory effort Auscultation: clear to auscultation bilaterally Cardio: Rate: regular rate Rhythm: regular rhythm Heart sounds: S1 normal heart sound present and S2 normal heart sound present GI: GI Palp: No abdominal tenderness Auscultation: normal bowel sounds DS: Data Data Completed and Pending Labs on day of discharge: Labs from last 24 hours 08/24/23 08/24/23 08/24/23 12:27 08:14 04:51 WBC 9.5 RBC 4.17 L Hgb 13.1 L Hct 39.3 L MCV 94.2 MCH 31.4 MCHC 33.3 RDW 11.9 Plt Count 301 MPV 10.5 H Immature Gran % (Auto) 0.3 Neut % (Auto) 50.5 Lymph % (Auto) 29.9 [place] % (Auto) 10.8 H Eos % (Auto) 7.5 H Baso % (Auto) 1.0 Lymph # (Auto) 2.83 [place] # (Auto) 1.0 H Eos # (Auto) 0.7 H Baso # (Auto) 0.1 Abs Immat Gran (auto) 0.03 Absolute Neuts (auto) 4.8 Absolute Nucleated RBC 0.0 Nucleated RBC % 0.0 Sodium 132 L Potassium 3.6 Chloride 97 L Carbon Dioxide 28 Anion Gap 7 L BUN 21 H Creatinine 0.70 Estim Creat Clear Calc 81 Estimated GFR > 60 Glucose 97 POC Capillary Glucose 88 97 Calcium 8.7 Phosphorus 3.0 Albumin 3.6 08/23/23 08/23/23 20:10 15:58 WBC RBC Hgb Hct MCV MCH MCHC RDW Plt Count MPV Immature Gran % (Auto) Neut % (Auto) Lymph % (Auto) [place] % (Auto) Eos % (Auto) Baso % (Auto) Lymph # (Auto) [place] # (Auto) Eos # (Auto) Baso # (Aut
[2023-08-25 15:31] LABS: Albumin 3.2 g/dL (3.8-4.8); Alpha 1 Globulin 0.3 g/dL (0.2-0.3); Alpha 2 Globulin 0.8 g/dL (0.5-0.9); Beta 1 Globulin 0.4 g/dL (0.4-0.6); Gamma Globulin 0.8 g/dL (0.8-1.7); Protein, Total 5.9 g/dL (6.1-8.1)
[2023-08-25 21:32] LABS: Kappa\\Lambda Light Chains 1.56 (0.26-1.65); Lambda Light Chain 16.2 mg/L (5.7-26.3)
[2023-09-01 13:58] LABS: Red Blood Cell Folate 573 ng/mL RBC (>280)
== END 2023-08-24 15:37 | disposition home or self-care (01) | DRG 242 ==
LOC: ANHED 17:18 → ANHIMU 19:05
PROVIDERS: Internal Medicine; Internal Medicine Cardiovascular Disease; Internal Medicine Nephrology; Specialist; Student in an Organized Health Care Education/Training Program; Admitting Provider General Practice; Emergency Provider Emergency Medicine; PCP Family Medicine; Visit Provider General Practice
PROC: 0JH606Z Insertion of Pacemaker, Dual Chamber into Chest Subcutaneous Tissue and Fascia, Open Approach (ICD-10-PCS; CPT 33208; principal; 2023-08-21 13:00)
DX: I49.5 Sick sinus syndrome (principal); I63.9 Cerebral infarction, unspecified; E87.1 Hypo-osmolality and hyponatremia; I48.0 Paroxysmal atrial fibrillation; I10 Essential (primary) hypertension; J32.9 Chronic sinusitis, unspecified; E78.2 Mixed hyperlipidemia; R56.9 Unspecified convulsions; F10.20 Alcohol dependence, uncomplicated; Z20.822 Contact with and (suspected) exposure to COVID-19; Z79.82 Long term (current) use of aspirin; Z86.010 Personal history of colon polyps; Z87.891 Personal history of nicotine dependence
CPT/HCPCS: 33208; 36415; 70450; 70544; 70551; 71045; 71046; 78452; 80048; 80053; 80069; 80307; 81050; 82140; 82533; 82570; 82607; 82747; 82948; 83690; 83735; 83880; 83883; 83930; 84145; 84155; 84156; 84165; 84166; 84443; 84484; 85025; 85610; 85730; 87040; 87637; 93005; 93017; 96365; 96374; 96375; 96376; 99213; 99285; A9270; A9502; C1779; C1785; G0378; G0463; J0360; J0456; J0696; J0834; J1644; J2250; J2270; J2785; J3010; J3370; J3411; J7040

== ENCOUNTER 2024-01-24 17:06 | Emergency (ER) | payer MEDICARE, SELFPAY ==
--- NOTE | ~2024-01-24 | XR_ITS ---
EXAMINATION: XR chest 2V DATE: 01/24/2024 18:10 INDICATION: Cough. Congestion. TECHNIQUE: Frontal and lateral views of the chest were obtained on 3 radiographs. COMPARISON: Chest 2 views 08/22/2023 FINDINGS: Calcified bilateral lung nodules and calcified right hilar lymph nodes are consistent with old granulomatous disease. There are interstitial opacities in the lower lung zones. There is mild sc arring at left lung apex. There is no pneumonia, pleural effusion, or pneumothorax. The heart size is normal. There is a left chest wall pacer with leads in the right atrium and right ventricle. IMPRESSION: 1. Interstitial opacities in the lower lung zones, consistent with atelectasis/scarring versus mild p ulmonary edema. Reviewed, dictated and finalized at location E. IMPRESSION: 1. Interstitial opacities in the lower lung zones, consistent with atelectasis/ scarring versus mild pulmonary edema.
[2024-01-24 17:10] VITALS: BP 168/78; PULSE 73; RESP 18; TEMP 36.8; O2SAT 100
[2024-01-24 17:51] LABS: Influenza A QL RT-PCR Negative (Negative); Influenza B QL RT-PCR Negative (Negative); RSV RNA, RT-PCR Negative (Negative); SARS-CoV-2 RNA PCR Negative (Negative)
--- NOTE | 2024-01-24 19:18 | ECG_ITS ---
SEE SCANNED COPY FOR CONFIRMED REPORT MTDD
[2024-01-24 20:18] VITALS: O2SAT 100
[2024-01-24 20:35] LABS: Basophils Absolute Auto 0.1 K/mm3 (0.0-0.1); Basophils Percent Auto 0.5 % (0.2-1.2); Eosinophils Absolute Auto 0.2 K/mm3 (0-0.3); Eosinophils Percent Auto 1.5 % (0-4.4); Hematocrit 40.9 % (42.0-52.0); Hemoglobin 14.5 g/dL (14.0-18.0); Immature Granulocyte Absolute 0.05 K/mm3 (0.00-0.031); Immature Granulocyte Percent A 0.4 % (0-0.5); Lymphocytes Absolute Auto 1.36 K/mm3 (0.9-3.2); Mean Corpuscular HGB Conc 35.5 g/dl (32-36); Mean Corpuscular Hemoglobin 32.4 pg (26-34); Mean Corpuscular Volume 91.3 fl (80-100); Mean Platelet Volume 11.2 fl (7.4-10.4); Monocytes Absolute Auto 1.1 K/mm3 (0.1-0.6); Monocytes Percent Auto 9.4 % (2.6-8.5); Neutrophils Absolute Auto 8.6 K/mm3 (1.3-6.7); Neutrophils Percent Auto 76.2 % (45.5-73.1); Platelet Count Result 206 k/mm3 (150-375); Red Blood Count 4.48 M/mm3 (4.6-6.20); Red Cell Distribution Width 12.1 % (11.5-14.5); White Blood Count 11.3 K/mm3 (4.5-10.0)
[2024-01-24 20:50] LABS: Lactic Acid Reflex 1.1 mmol/L (0.7-2.0)
--- NOTE | 2024-01-24 21:04 | ED.GENADULT ---
HPI - General Adult General Chief complaint: Upper Respiratory Infection Stated complaint: Head and chest congestion Time Seen by Provider: 01/24/24 19:11 History of Present Illness HPI narrative: Patient is a 83-year-old gentleman who presents emergency department with chief complaint not feeling well and cough. Patient reports that he has had some sinus drainage and a cough patient states been going on for about 1 day patient reports intermittent cough and shortness of breath patient reports that it is clear on the productive nature of it denies fever but does report that he has had some body aches. Patient reports no sick contacts Related Data Home Medications Medication Instructions Recorded Confirmed levetiracetam 500 mg tablet 500 mg PO BID 08/18/23 12/10/23 rivaroxaban 20 mg tablet (Xarelto) 20 mg PO DAILY 12/10/23 12/10/23 Allergies Allergy/AdvReac Type Severity Reaction Status Date / Time amoxicillin Allergy Unknown Diarrhea Verified 12/18/23 15:07 Penicillins Allergy Unknown Rash Verified 12/18/23 15:07 phenylephrine Allergy Unknown Diarrhea Verified 12/18/23 15:07 levofloxacin AdvReac Unknown Diarrhea Verified 12/18/23 15:07 Review of Systems Review of Systems: A 10 system review of systems was completed on the patient and is negative except for what is stated in the HPI. Nursing and ancillary documentation was reviewed. [facility] Past Medical History Medical History Altered mental status COVID-19 Essential (primary) hypertension Hypertension Hyponatremia Mixed hyperlipidemia Paroxysmal A-fib Seizure Status post stroke Tachy-lakhwinder syndrome Surgical History Surgical History H/O abdominal surgery Abdominal umbilical hernia repair with multiple complications and least 2 more surgeries after that. H/O cataract extraction H/O colonoscopy with polypectomy H/O nasal septoplasty Sinus surgery H/O sinus surgery X3 History of removal of pigmented skin lesion History of tonsillectomy and adenoidectomy Family History Family History Father Hypertension Cerebrovascular accident Mother Family history of congestive heart failure Family history of heart disease in male family member before age 55 Other Family history of allergic disorder Family history of arthritis Social History Social History Social History: The patient lives with his . He has 4 children. He drinks up to 5-6 beers a day and more on the weekends. 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 Patient quit smoking many years ago. No marijuana or illicit drugs noted. His is the durable power of education coordinator for healthcare. Code status full code Smoking packs per day: 1.5 Smoking cigarettes per day: 30.0 Years smoked: 41 Smoking pack-years: 61.50 Smoking status: Former smoker Tobacco type: cigarettes Smoking end date: 08/06/99 Alcohol intake: current Drinks per week: 32 Alcohol use details: beer Substance use: never Substance use type: does not use Do You Feel Safe in your Home?: Yes Lack of Transportation: No Lack of Food: Never True Current Housing: I Have Housing Concerned About Future Housing: No Difficulty Paying Gas/Electric Bills: No Difficulty Paying for Meds: No Currently Unemployed: No Education: High School Diploma/GED Difficulty w/ Childcare or Family Care: No Spiritual care concerns: No Exam Narrative: GENERAL: Well-appearing, well-nourished, and in no acute distress. HEAD: Normocephalic, atraumatic. EYES: PERRLA and EOMI. ENT: Nares clear, no rhinorrhea or epistaxis. Mucous membranes moist. NECK: Supple. CHEST: Clear to auscultation. No respiratory distress. HEART: Regular rate and rhythm. N
[2024-01-24 21:26] LABS: Alanine Aminotransferase 21 U/L (6-50); Albumin Level 4.5 g/dL (3.5-5.1); Alkaline Phosphatase 88 U/L (38-126); Anion Gap 7 mmol/L (4-12); Aspartate Amino Transferase 26 U/L (17-59); Blood Urea Nitrogen 13 mg/dL (9-20); Calcium 9.4 mg/dL (8.4-10.2); Carbon Dioxide 28 mmol/L (22-30); Chloride 92 mmol/L (98-107); Estimated Glomerular Filt Rate > 60; Glucose 113 mg/dL (65-110); Sodium 127 mmol/L (137-145)
[2024-01-24 21:36] LABS: NT Pro B Type Natriuretic Pept 523 pg/mL (19.9-100); Troponin I < 0.012 ng/mL (0.000-0.034)
[2024-01-24 22:16] VITALS: BP 174/89; PULSE 69; RESP 20; O2SAT 97
== END 2024-01-24 22:16 | disposition home or self-care (01) ==
PROVIDERS: Emergency Medicine; Emergency Provider Emergency Medicine; PCP Family Medicine
DX: J20.8 Acute bronchitis due to other specified organisms (principal); I10 Essential (primary) hypertension; I48.0 Paroxysmal atrial fibrillation; E78.2 Mixed hyperlipidemia; Z86.73 Personal history of transient ischemic attack (TIA), and cerebral infarction without residual deficits; Z86.16 Personal history of COVID-19; Z98.49 Cataract extraction status, unspecified eye; Z87.891 Personal history of nicotine dependence; Z79.01 Long term (current) use of anticoagulants
CPT/HCPCS: 36415; 71046; 80053; 83605; 83880; 84484; 85025; 87637; 93005; 99284

== ENCOUNTER 2024-05-20 16:10 | Emergency (ER) | payer MEDICARE, SELFPAY ==
[2024-05-20 16:11] VITALS: BP 111/80; PULSE 73; RESP 20; TEMP 36.6; O2SAT 96
--- NOTE | 2024-05-20 16:16 | ECG_ITS ---
Test Date: 2024-05-20 16:22:52 Measurements Intervals [place] Rate: 67 P: 121 OR: 192 QRS: -2 QRSD: 84 T: 52 QT: 392 QTc: 416 Interpretive Statements ELECTRONIC ATRIAL PACEMAKER OTHERWISE WITHIN NORMAL LIMITS ECG No previous ECG available for comparison Electronically Signed On 05-21-2024 09:25:37 CDT by Rajeev Spear M.D.
[2024-05-20 19:46] VITALS: BP 141/69; PULSE 67; RESP 20; TEMP 36.6; O2SAT 95
--- NOTE | 2024-05-20 22:04 | PC.NURSE ---
Pt comes up to nurses desk with stating he is not waiting any longer. Pt encouraged to stay, pt refuses. Leaves ED in NAD.
== END 2024-05-20 23:40 | disposition left against medical advice (07) ==
PROVIDERS: Emergency Provider Emergency Medicine; PCP Nurse Practitioner Family
DX: R05.9 Cough, unspecified (principal)
CPT/HCPCS: 93005; 99199

== ENCOUNTER 2024-06-23 11:48 | Outpatient (CLI) | payer MEDICARE, SELFPAY ==
--- NOTE | ~2024-06-23 | XR_ITS ---
Clinical Indication: Cough PA and lateral views of the chest: Comparison: 01/24/2024 Findings: The lungs are clear, without evidence of focal consolidation or pleural effusion. Possible COPD. Cardiomediastinal silhouette is stable, with pacemaker device. Stable compression deformities of T10 and T12. Impression: No acute pulmonary abnormality. COPD. Stable compression fractures, as above. Reviewed, dictated and finalized at location . Impression: No acute pulmonary abnormality. COPD. Stable compression fractures, as above.
== END 2024-06-23 11:49 | disposition home or self-care (01) ==
LOC: MICIMG 11:50
PROVIDERS: PCP Nurse Practitioner Family; Visit Provider Nurse Practitioner Family
DX: J44.9 Chronic obstructive pulmonary disease, unspecified (principal); S22.080D Wedge compression fracture of T11-T12 vertebra, subsequent encounter for fracture with routine healing
CPT/HCPCS: 71046

== ENCOUNTER 2024-09-06 15:51 | Outpatient (CLI) | payer MEDICARE, SELFPAY ==
--- NOTE | ~2024-09-06 | XR_ITS ---
EXAMINATION: XR chest 2V DATE: 09/06/2024 16:09 INDICATION: Cough TECHNIQUE: PA and lateral views of the chest were obtained. COMPARISON: Chest radiograph dated 06/23/24 FINDINGS: Mild elevation the left hemidiaphragm with minimal streaky atelectasis at the lateral left lung base. New airspace opacities at the posterior right lung base which could represent atelectasis or pneumon ia. Calcified nodules in the right lower lung zone along with calcified right hilar lymph nodes consi stent with old granulomatous disease. No pulmonary edema, pleural effusion or pneumothorax. Heart siz e is normal with small left pericardial fat pad. Dual lead pacemaker seen with leads projecting over the expected locations of the right atrium and right ventricle. Mild S-shaped curvature and mild to m oderate spondylosis of the thoracolumbar spine. There are a few unchanged chronic compression fractur es in the mid and lower thoracic spine. IMPRESSION: 1. New airspace opacities in the basilar right lower lobe which could represent atelectasis or pneumo [place]. Reviewed, dictated and finalized at location A. ON PICTURE CAMERA LENS TECHNICIAN IMPRESSION: 1. New airspace opacities in the basilar right lower lobe which could represent atelectasis or pneumonia.
== END 2024-09-06 15:52 | disposition home or self-care (01) ==
PROVIDERS: PCP Nurse Practitioner Family; Visit Provider Nurse Practitioner Family
DX: R05.9 Cough, unspecified (principal); R91.8 Other nonspecific abnormal finding of lung field
CPT/HCPCS: 71046

== ENCOUNTER 2025-04-25 13:44 | Outpatient (CLI) | payer MEDICARE, SELFPAY ==
--- NOTE | ~2025-04-25 | XR_ITS ---
EXAM/ PROCEDURE: XR knee RT min 4V - 04/25/2025 13:58 CDT HISTORY: 84 years old Male with M25.561 - Pain AND SWELLING MEDIAL right knee X5 DAYS NKI COMPARISON: None available TECHNIQUE: Four view(s) FINDINGS/ IMPRESSION: There are no fractures or dislocations.Joint space narrowing, subchondral sclerosis, subchondral cyst formation and osteophyte formation, compatible with mild osteoarthritis. Cleemntella seen. Reviewed, dictated and finalized at location A.
--- OUTSIDE RECORDS SUMMARY | 2025-04-25 13:49 | XMS_ITS | Referral Summary ---
Author Organization [facility] [address] [place] [address] [address] [place] [address] Care Team Providers Care Agronomy Teacher Name Role Phone Elver Thornton MD Primary Care Provider [phone] Encounters Date Type Department Care Team Description 03/08/2025 1:00 PM CDT Ancillary Procedure [facility] Cardiology [address] [place] [address] Paroxysmal atrial fibrillation (HCC); Cardiac pacemaker in situ; SSS (sick sinus syndrome) (HCC) 03/07/2025 Telephone [facility] Cardiology [address] [place] [address] [place] [phone] Rajeev Spear MD 01/31/2025 7:30 AM CDT Ancillary Procedure [facility] Cardiology [address] [place] [address] [place] [id number] Cardiac pacemaker in situ [Z95.0] (Primary Dx); Paroxysmal atrial fibrillation (HCC); SSS (sick sinus syndrome) (HCC); Tachy-lakhwinder syndrome (HCC) from Last 3 Months Allergies Active Allergy Reactions Criticality Noted Date Comments Penicillin Rash Medium 01/06/2023 Medications ipratropium (ATROVENT) 21 mcg (0.03 %) nasal spray Administer into each nostril 2 (two) times a day 3 Active levETIRAcetam (KEPPRA) 500 mg tablet Take 1 tablet (500 mg total) by mouth 2 (two) times a day 3 Active folic acid (FOLVITE) 1 mg tablet Take 1 tablet (1 mg total) by mouth daily Active cyanocobalamin (Vitamin B-12) 100 mcg tabletIndications :Prevention of Vitamin B12 Deficiency Take 1 tablet (100 mcg total) by mouth daily Active fluticasone propionate (FLONASE) 50 mcg/actuation nasal spray Administer 2 sprays into each nostril daily 1 each 2 3 Active atorvastatin (LIPITOR) 40 mg tablet Take 1 tablet (40 mg total) by mouth daily 3 Active amLODIPine (NORVASC) 5 mg tablet Take 2 tablets (10 mg total) by mouth every morning 3 Active rivaroxaban (Xarelto) 20 mg tabletIndications :Paroxysmal atrial fibrillation (HCC) TAKE 1 TABLET BY MOUTH EVERY DAY WITH DINNER 90 tablet 1 4 Active sotaloL (BETAPACE) 80 mg tablet TAKE 1 TABLET BY MOUTH EVERY 12 HOURS. 180 tablet 1 5 Active Active Problems Problem Noted Date Diagnosed Date Visit for wound check 08/31/2023 Cardiac pacemaker in situ 08/24/2023 Overview (08/24/2023): Biotronik Amvia Edge Dual Pacemaker. Dx; SSS, Afib. DOI 08/21/2023-Beatris. Biotronik Remote home monitoring. Sepsis 01/07/2023 Hyponatremia 01/07/2023 Uncontrolled hypertension 01/07/2023 Obesity, Class I, BMI 30-34.9 01/07/2023 Seizure disorder 01/07/2023 Bilateral pneumonia 01/06/2023 Social History Tobacco Use Types Packs/Day Years Used Date Smoking Tobacco: Former Cigarettes Passive Smoke Exposure: Past Tobacco Cessation:Counseling Given: Not Answered Passive Exposure Comments:quit smoking 1998 Social Connection and Isolat ion Panel [NHANES] Answer Date Recorded In a typical week, how many times do you talk on the phone with family, friends, or neighbors? More than three times a week 01/07/2023 How often do you get togethe r with friends or relatives? More than three times a week 01/07/2023 How often do you attend [facility] Awesome[employer]me or baptism services? Never 01/07/2023 Do you belong to any clubs o r organizations such as methodist groups, unions, fraternal or athletic groups, or school groups? Yes 01/07/2023 How often do you attend meet ings of the clubs or organizations you belong to? 1 to 4 times per year 01/07/2023 Are you , , di vorced, , never , or living with a partner? 01/07/2023 Overall Financial Resource Strain (CARDIA) Answe r Date Recorded How hard is it for you to pa y for the very basics like food, housing, medical care, and heating? Not hard at all 01/07/2023 PRAPARE - Transportation Answer Date Re corded In the past 12 months, has l ack of transportation kept you from medical appointments or from getting medications? No 02/2023 In the past 12 months, has l ack of transportation kept you from meetings, work, or from getting things needed for daily living? No 01/07/2023 Personal Safety Answer Date Recorded Have you ever been in or are you currently in a harmful physical or emotional relationship or is someone making you feel afraid or unsafe? 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 Gender Identity Not on file Sexual Orientation Not on file Last Filed Vital Signs Vital Sign Reading Time Taken Comments Blood Pressure 142/82 08/04/2024 2:21 PM CDT Pulse 80 08/04/2024 2:21 PM CDT Temperature 36.6 C (97.9 F) 01/09/2023 11:32 AM CDT Respiratory Rate 18 01/09/2023 11:32 AM CDT Oxygen Saturation 97% 08/04/2024 2:21 PM CDT Inhaled Oxygen Concentration - - Weight 89.4 kg (197 lb) 08/04/2024 2:21 PM CDT Height 170.2 cm (5' 7) 08/04/2024 2:21 PM CDT Body Mass Index 30.85 08/04/2024 2:21 PM CDT Plan of Treatment Not on file Procedures Procedure Name Priority Date/Time Associated Diagnosis Comments DEVICE CHECK - IN OFFICE Routine 03/08/2025 12:44 PM CDT Paroxysmal atrial fibrillation (HCC) Cardiac pacemaker in situ SSS (sick sinus syndrome) (HCC) DEVICE CHECK - REMOTE Routine 01/31/2025 8:47 AM CDT Paroxysmal atrial fibrillation (HCC) SSS (sick sinus syndrome) (HCC) Tachy-lakhwinder syndrome (HCC) from Last 3 Months Results * DEVICE CHECK - IN OFFICE (03/08/2025 12:44 PM CDT) Anatomical Region Laterality Modality Other Narrative 03/09/2025 12:06 PM CDT Biotronik Amvia Edge Dual Pacemaker. Dx; SSS, Afib. DOI 08/21/2023-Beatris. [employer]ron[employer] Remote home monitoring. Supervising MD: Dr Goodman. Left pectoral incision well approximated. No redness, drainage, or edema noted. Reiterated post op restrictions and wound care instructions. Office DDD Pacemaker interrogation demonstrated appropriate device function. Appropriate lead measurements noted. Battery function: Ok, 7.0 years 8 months remaining battery life to YADY. Presenting rhythm- AP-VS. Underlying rhythm- SB 50 bpm. AP- 87%, CRYSTALLIZER OPERATOR- 0%. No Atrial high rate episodes recorded. No Ventricular high rate episodes noted. Medications; Xarelto, Sotalol No programming changes made to device settings. See scanned report. Office pacemaker f/u scheduled 06/13/2026. Biotronik remote f/u 06/13/2025. Rachana Thompson, IZABELA Rajeev Spear MD [facility] PROC EDURES Final Result * DEVICE CHECK - REMOTE (01/31/2025 8:47 AM CDT) Anatomical Region Laterality Modality Other Narrative 02/07/2025 1:27 PM CDT Biotronik Amvia Edge Dual Pacemaker. Dx; SSS, Afib. DOI 08/21/2023-Beatris. Biotronik Remote home monitoring. Routine DDD Pacemaker Remote. Transmission attached. Battery status: Ok, 85% remaining battery life to YADY. Stable lead impedances, pacing and sensing thresholds. Presenting rhythm: AP-VS. AP- 87%, CRYSTALLIZER OPERATOR- 0%. No AT/AF episodes noted. No Ventricular high rate episodes detected. Medications: Xarelto, Sotalol. See scanned report. Office pacemaker follow up: 03/08/2025. [employer] remote f/u in 6 months. Rachana Thompson RN Rajeev Spear MD [facility] PROC EDURES Final Result from Last 3 Months Insurance A[employer] MEDICARE GOLD AETNA MEDICARE GOLD Advance Directives For more information, please contact: [phone] * Full Code (Latest Code Status on File) Date Activated Date Inactivated Comments 01/06/2023 10:15 PM 01/09/2023 10:34 PM Care Teams Agronomy Teacher Relationship Specialty Start Date End Date Elver Thornton MD PCP - General Family Practice 10/08/23
--- OUTSIDE RECORDS SUMMARY | 2025-04-25 13:49 | XMS_ITS | Continuity of Care Document ---
Author Organization [facility] Address [address] [place] [address] Phone Care Team Providers Care Marketing Sales Manager Name Role Phone Kamini Gregory Unavailable Unavailable Procedures Procedure Date Eye Exam, New Patient Advance Directives Directive Yes / No Effective Date File Name No Information Encounters Encounter Description Practice Location Reason(s) For Visit Diagnoses Date Provider Providers Copied on Encounter [facility], [address], [place], [place], [id number], [place] tel:[phone] [facility] No Information [address] Bri Suárez. [address] , [address], [place], [address], [place]. tel:[phone] Family History Family Member Type Diagnosis Age At Onset No Information Payers Payer name Insurance type Covered democrat ID Authoriza tion(s) [facility] CI [id number] Social History Type Description Quantity Date Captured Comments Sex Male Smoking Status No Information Chief Complaint And Reason For Visit No Information Reason For Referral Reason For Referral No Information History Of Present Illness Encounter Date Complaint History Of Prese nt Illness No Information Functional Status Date Functional Assessmen t No Information Instructions Date Instruction Additional Infor mation No Information Assessments Type Assessment Date No Information Patient Care Teams Name Effective Dates (start - stop) Status Members No Information
--- OUTSIDE RECORDS SUMMARY | 2025-04-25 13:49 | XMS_ITS | Encounter Summary ---
Author Organization [facility] Healthcare Address [address] [place] [address] Care Team Providers Care Belting And Webbing Inspector Name Role Phone Elver Thornton MD Primary Care Provider [phone] Encounter Details Date Type Department Care Team (Late st Contact Info) Description 06/23/2024 Orders Only [facility] Management [address] [place] [id number] Scanning, Provider Social History Tobacco Use Types Packs/Day Years Used Date Smoking Tobacco: Former Cigarettes Passive Smoke Exposure: Past Passive Exposure Comments:qu it smoking 1998 Social Connection and Isolat ion Panel [NHANES] Answer Date Recorded In a typical week, how many times do you talk on the phone with family, friends, or neighbors? More than three times a week 01/07/2023 How often do you get togethe r with friends or relatives? More than three times a week 01/07/2023 How often do you attend chur ch or restorationist services? 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 Gender Identity Not on file Sexual Orientation Not on file documented as of this encounter Plan of Treatment Not on file documented as of this encounter Procedures Procedure Name Priority Date/Time Associated Diagnosis Comments SCAN - LABS 06/23/2024 documented in this encounter Results * SCAN - LABS (06/23/2024) us Provider Scanning Final Result documented in this encounter Visit Diagnoses Not on filedocumented in this encounter Care Teams Belting And Webbing Inspector Relationship Specialty Start Date End Date Elver Thornton MD PCP - General Family Practice 10/08/23 documented as of this encounter
--- OUTSIDE RECORDS SUMMARY | 2025-04-25 13:49 | XMS_ITS | Clinical Summary ---
Author Organization [facility] [address] Address [address] [place] [address] Care Team Providers Care Advertisement Distributor Name Role Phone Elver Thornton MD Primary Care Provider [phone] Allergies Active Allergy Reactions Criticality Noted Date [...] Edge Dual Pacemaker. Dx; SSS, Afib. DOI 08/21/2023-Fleissner. [facility] Remote home monitoring. Sepsis 01/07/2023 Hyponatremia 01/07/2023 Uncontrolled hypertension 01/07/2023 Obesity, Class I, BMI 30-34.9 01/07/2023 Seizure disorder 01/07/2023 Bilateral pneumonia 01/06/2023 Encounters Date Type Department Care Team Description 03/08/2025 1:00 PM CDT Ancillary Procedure [facility] [address] [facility] [address] [place] [address] Paroxysmal atrial fibrillation (HCC); Cardiac pacemaker in situ; SSS (sick sinus syndrome) (HCC) 03/07/2025 Telephone [facility] [address] [place] [address] [place] [phone] Rajeev Spear MD 01/31/2025 7:30 AM CDT Ancillary Procedure [facility] [address] [place] [address] [place] [phone] Cardiac pacemaker in situ [Z95.0] (Primary Dx); Paroxysmal atrial fibrillation (HCC); SSS (sick sinus syndrome) (HCC); Tachy-lakhwinder syndrome (HCC) from Last 3 Months Social History Tobacco Use Types Packs/Day Years [...] 01/07/2023 How often do you attend chur Enevate or tenriism services? 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 Gender Identity Not on file Sexual Orientation Not on file Obstetrics History Last Filed Vital Signs Vital Sign Reading [...] 08/04/2024 2:21 PM CDT Plan of Treatment Health Maintenance Due Date Last Done Comments Depression Screening 1941 DTaP/Tdap/Td Vaccine (1 - Tdap) 1952 Hepatitis B Screening 12/21/1959 Pneumococcal vaccine 65+ (1 of 1 - PCV) 12/21/1991 Zoster Vaccine (1 of 2) 12/21/1991 Well Visit 65+ 2006 Fall Risk Assessment 01/10/2024 01/09/2023 Covid-19 Vaccine (2023-2 5 season) 2024 02/01/2022, 2020, 11/29/2020 Influenza Vaccine (Season Ended) 2025 08/01/2022, 07/24/2021, 06/24/2020, Additional history exists Procedures Procedure Name Priority Date/Time Associated Diagnosis [...] Underlying rhythm- SB 50 bpm. AP- 87%, DOOR PANELER- 0%. No Atrial high rate episodes recorded. [...] sensing thresholds. Presenting rhythm: AP-VS. AP- 87%, DOOR PANELER- 0%. No AT/AF episodes noted. No Ventricular high rate episodes detected. Medications: Xarelto, Sotalol. See scanned report. Office pacemaker follow up: 03/08/2025. [employer] remote f/u in 6 months. Rachana Thompson RN Rajeev Spear MD [facility] PROC EDURES Final Result from Last 3 Months Insurance MEDICARE [facility] MEDICARE [facility] Advance Directives For more information, please contact: [phone] * Full Code (Latest Code Status on File) Date Activated Date Inactivated Comments 01/06/2023 10:15 PM 01/09/2023 10:34 PM Care Teams Advertisement Distributor Relationship Specialty Start Date End Date Elver Thornton MD PCP - General Family Practice 10/08/23
== END 2025-04-25 13:45 | disposition home or self-care (01) ==
PROVIDERS: PCP Nurse Practitioner Family; Visit Provider Nurse Practitioner Family
DX: M25.561 Pain in right knee (principal); M25.461 Effusion, right knee
CPT/HCPCS: 73564

== ENCOUNTER 2025-07-12 09:19 | Inpatient (IN) | payer MEDICARE, SELFPAY ==
[2025-07-12] VITALS (19 sets, daily range): BP systolic 130–165; BP diastolic 56–83; PULSE 64–81; RESP 15–25; TEMP 36.2–36.6; O2SAT 93–98; BMI 31.4
--- NOTE | ~2025-07-12 | XR_ITS ---
Examination: XR chest 1V portable Clinical History: SOB Comparison: 09/06/2024 Technique: Portable AP Findings: Left pacemaker. Mild cardiomegaly. Lungs clear. No acute bony abnormality. IMPRESSION: 1. No acute cardiopulmonary findings given portable technique. Reviewed, dictated and finalized at location R.
--- NOTE | ~2025-07-12 | CT_ITS ---
EXAMINATION: CT chest abdomen pelvis w con DATE: 07/12/2025 11:31 INDICATION: Suspected pneumonia and constipation TECHNIQUE: Computed tomography (CT) of the chest, abdomen, and pelvis was performed with 100 mL Omnipaque-350 intravenous contrast. Automated exposure control and iterative reconstruction technique were employed. The dose-length product was 874.83 mGy-cm. COMPARISON: Chest CT dated 12/24/[address] chest, abdomen and pelvis dated 07/14/2017 FINDINGS: CHEST CT: There is persistent bronchial wall thickening the bilateral lower lobes. Mild respiratory motion at the lung bases. Mild reticular opacities at the basilar right middle lobe and at the posterior basilar right lower lobe most likely related to atelectasis although differential includes mild pulmonary edema, early pneumonia or chronic interstitial lung disease. Calcified right lower lobe nodule along with calcified right hilar lymph nodes consistent with old granulomatous disease. No pleural effusion. Mild cardiomegaly. A scar coronary artery calcifications. No pericardial effusion. Dual-lead cardiac pacemaker with lead tips at the right atrial appendage and near the apex of the right ventricle. Thoracic aorta is normal in caliber with no dissection.. No pathologically enlarged thoracic lymphadenopathy. Severe thoracic spondylosis with stable appearance of multiple thoracic compression fractures. ABDOMEN/PELVIS CT: Small sliding-type hiatal hernia. Focal hepatic steatosis at the ligamentum teres. Gallbladder, pancreas, bilateral adrenal glands and right kidney are normal. 5 mm low-attenuation likely cyst in the left kidney which is too small to definitively characterize. Multiple splenic calcific lesions consistent with old granulomatous disease. Moderate amount of stool in the proximal to mid colon. The sigmoid colon is decompressed with moderate diverticulosis without adjacent from trace stranding to suggest diverticulitis. Normal appendix. There are couple normal appearing short segments of small bowel extending to moderate- sized bilateral inguinal hernias. No bowel obstruction or abnormal bowel wall thickening. Bladder is normal. Mild prostatomegaly measuring 4.5 x 3.3 cm. No free intraperitoneal gas or fluid. No pathologically enlarged abdominal or pelvic lymphadenopathy. Mild lumbar levocurvature with severe spondylosis. IMPRESSION: 1. Chronic bronchial wall thickening in bilateral lower lobes which could be due to bronchitis or reactive air disease/asthma. 2. Mild reticular opacities at the left lung base most likely related to atelectasis with differential including mild pulmonary edema, early pneumonia or more chronic interstitial lung disease. 3. Short segment of nonobstructed normal-appearing small bowel extending into the moderate-sized bilateral inguinal hernias. No acute intra-abdominal/pelvic process. 4. Moderate sigmoid diverticulosis. 5. Small sliding-type hiatal hernia. Reviewed, dictated and finalized at location A. IMPRESSION: 1. Chronic bronchial wall thickening in bilateral lower lobes which could be du e to bronchitis or reactive air disease/asthma. 2. Mild reticular opacities at the left lung base most likely related to atelec tasis with differential including mild pulmonary edema, early pneumonia or more chronic interstitial lung disease. 3. Short segment of nonobstructed normal-appearing small bowel extending into t he moderate-sized bilateral inguinal hernias. No acute intra-abdominal/pelvic p rocess. 4. Moderate sigmoid diverticulosis. 5. Small sliding-type hiatal hernia.
--- NOTE | 2025-07-12 09:45 | PC.NURSE ---
Pt has hx of seizures and states he takes seizure medications.
[2025-07-12] MEDS: ALBUTEROL SULFATE NEB 2.5 MG/3 ML INH 5 MG INHALATION ×2 (09:53→12:34)
[2025-07-12 09:56] LABS: Hematocrit 39.4 % (42.0-52.0); Hemoglobin 13.7 g/dL (14.0-18.0); Immature Granulocyte Percent A 0.4 % (0-0.5); Lymphocytes Absolute Auto 2.63 K/mm3 (0.9-3.2); Mean Corpuscular HGB Conc 34.8 g/dl (32-36); Mean Corpuscular Hemoglobin 31.2 pg (26-34); Mean Corpuscular Volume 89.7 fl (80-100); Nucleated Red Blood Cells Absolute Auto 0.000 K/mm3 (0.0-0.012); Nucleated Red Blood Cells Perc 0.0 % (0.0-0.2); Platelet Count Result 264 k/mm3 (150-375); Red Blood Count 4.39 M/mm3 (4.6-6.20); White Blood Count 10.5 K/mm3 (4.5-10.0)
[2025-07-12 10:08] LABS: INR 1.4; Prothrombin Time 17.3 Seconds (11.1-14.7)
[2025-07-12 10:09] LABS: Partial Thromboplastin Time 43.1 Seconds (22.3-36.8)
[2025-07-12 10:11] LABS: Alanine Aminotransferase 22 U/L (6-50); Albumin Level 4.2 g/dL (3.5-5.1); Alkaline Phosphatase 94 U/L (38-126); Anion Gap 6 mmol/L (4-12); Aspartate Amino Transferase 30 U/L (17-59); Bilirubin,Total 0.6 mg/dL (0.2-1.3); Blood Urea Nitrogen 11 mg/dL (9-20); Calcium 8.7 mg/dL (8.4-10.2); Carbon Dioxide 32 mmol/L (22-30); Chloride 87 mmol/L (98-107); Estimated CRCL calculation 67 ml/min; Estimated Glomerular Filt Rate > 60; Glucose 108 mg/dL (65-110); Potassium 4.3 mmol/L (3.4-5.0); Sodium 125 mmol/L (137-145); Total Protein 7.3 g/dL (6.3-8.2)
[2025-07-12 10:19] LABS: NT Pro B Type Natriuretic Pept 210 pg/mL (19.9-100)
[2025-07-12 10:33] LABS: Influenza A QL RT-PCR Negative (Negative); Influenza B QL RT-PCR Negative (Negative); RSV RNA, RT-PCR Negative (Negative); SARS-CoV-2 RNA PCR Negative (Negative)
--- NOTE | 2025-07-12 10:33 | ED.GENADULT ---
HPI - General Adult General Chief complaint: Upper Respiratory Infection Stated complaint: congested, dyspnea Time Seen by Provider: 07/12/25 09:28 History of Present Illness HPI narrative: 84-year-old male present to the emergency department for evaluation for worsening shortness of breath that has been progressing over the course of the last month and particularly worse over the last few days. Patient does have a yearly history of pneumonia and has required admission previously. Patient does have a 40 year smoking history approximately 25 years ago. Related Data Home Medications ?Medication ?Instructions ?Recorded ?Confirmed ?Last Taken ?Type rivaroxaban 20 mg tablet (Xarelto) 20 mg PO DAILY 12/10/23 07/12/25 07/12/25 History fluticasone propionate 50 2 spray intranasal DAILY PRN nasal 07/12/25 07/12/25 Unknown History mcg/actuation nasal congestion spray,suspension Allergies Allergy/AdvReac Type Severity Reaction Status Date / Time phenylephrine Allergy Unknown Diarrhea Verified 07/12/25 14:25 levofloxacin AdvReac Unknown Diarrhea Verified 07/12/25 14:25 Penicillins AdvReac Rash Verified 07/12/25 14:25 Review of Systems Review of Systems: All systems reviewed & are unremarkable except as noted in HPI and below PMFSH Past Medical History Medical History (Updated 07/12/25 @ 18:28 by Jose Cronin MD) BMI 32.0-32.9,adult Status post stroke Hyponatremia Hypertension Tachy-lakhwinder syndrome Paroxysmal A-fib COVID-19 Altered mental status Seizure Essential (primary) hypertension Mixed hyperlipidemia Surgical History Surgical History History of tonsillectomy and adenoidectomy H/O colonoscopy with polypectomy History of removal of pigmented skin lesion H/O nasal septoplasty Sinus surgery H/O sinus surgery X3 H/O cataract extraction H/O abdominal surgery Abdominal umbilical hernia repair with multiple complications and least 2 more surgeries after that. Family History Family History Father Hypertension Cerebrovascular accident Mother Family history of congestive heart failure Family history of heart disease in male family member before age 55 Other Family history of allergic disorder Family history of arthritis Social History Social History Social History: The patient lives with his . He has 4 children. He drinks up to 5-6 beers a day and more on the weekends. 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 Patient quit smoking many years ago. No marijuana or illicit drugs noted. His is the durable power of market researcher for healthcare. Code status full code Smoking packs per day: 1.5 Smoking cigarettes per day: 30.0 Years smoked: 41 Smoking pack-years: 61.50 Smoking status: Former smoker Tobacco type: cigarettes Smoking end date: 08/06/99 Alcohol intake: current Drinks per week: 35 Alcohol use details: beer Substance use: never Substance use type: does not use Do You Feel Safe in your Home?: Yes Lack of Transportation: No Lack of Food: Never True Current Housing: I Have Housing Concerned About Future Housing: No Difficulty Paying Gas/Electric Bills: No Difficulty Paying for Meds: No Currently Unemployed: No Education: High School Diploma/GED Difficulty w/ Childcare or Family Care: No Spiritual care concerns: No Exam Narrative: APPEARANCE: Well appearing, no pain, no distress, well-nourished. HEAD: normocephalic, atraumatic. EYES: PERRLA/EOMI, conjunctivae clear. NOSE: Normal no drainage EARS:TMS clear with good light reflex. THROAT: Pharynx clear, no exudate. NECK: Supple. No adenopathy, no masses. RESPIRATORY: Extensive expiratory wheeze in all lung aaron CARDIOVASCULAR: Regular rate and rhythm without murmurs rubs or gallops. ABDOMINAL: Soft, nontender, nondistended, normal bowel sounds MUSCULOSKELETAL: Moves all extremities. Strength/ROM intact, No edema, No calf tenderness. NEURO: Alert. Cranial nerves II through XII intact. Good gait. Good coordination SKIN: Warm, dry. Normal Color Course Vital Signs Vital signs: Vital Signs Temperature 97.8 F 07/12/25 09:30 Pulse Rate 77 07/12/25 09:30 Respiratory Rate 19 07/12/25 09:30 Blood Pressure 165/79 H 07/12/25 09:30 Pulse Oximetry 98 07/12/25 09:30 Oxygen Delivery Room Air 07/12/25 09:30 Temperature 97.2 F L 07/12/25 16:29 Pulse Rate 64 07/12/25 17:05 Respiratory Rate 18 07/12/25 16:29 Blood Pressure 130/56 L 07/12/25 16:29 Pulse Oximetry 96 07/12/25 16:29 Oxygen Delivery Room Air 07/12/25 11:35 Medical Decision Making [facility] Narrative Medical decision making narrative: 84-year-old male presents emergency department for evaluation for worsening shortness breath over the course of the past few weeks but acutely worsened over the last few days. Patient does have a remote smoking history but denies any prior history or diagnosis of COPD. Patient did have extensive wheeze exam and was treated with 5 mg nebulized albuterol with some mild improvement. Patient was treated with a 2nd nebulized 5 mg albuterol. Patient is currently afebrile but does have a leukocytosis of 10.5 and hemoglobin of 13.7. INR of 1.4. Patient does have a mild hyponatremia of 125. ProBNP is only mildly elevated to 10. Patient was negative for influenza RSV and for COVID. Chest x-ray showed no acute findings but CT chest did show evidence of chronic bronchitis with a component of pneumonia. Patient was started on IV antibiotics in the emergency department. Patient was also treated with 125 mg of IV Solu-Medrol. Patient reports that his exertional shortness of breath that is too much for him to be discharged to home. Patient will be admitted for pneumonia. Case was discussed with hospitalist and patient was well-appearing at time of admission. Differential Diagnosis Differential Diagnosis: COPD, pneumonia, CHF, pulmonary embolism, COVID, RSV, influenza Vital Signs Vital Signs: Vital Signs Temperature 97.8 F 07/12/25 09:30 Pulse Rate 77 07/12/25 09:30 Respiratory Rate 19 07/12/25 09:30 Blood Pressure 165/79 H 07/12/25 09:30 Pulse Oximetry 98 07/12/25 09:30 Oxygen Delivery Room Air 07/12/25 09:30 Temperature 97.2 F L 07/12/25 16:29 Pulse Rate 64 07/12/25 17:05 Respiratory Rate 18 07/12/25 16:29 Blood Pressure 130/56 L 07/12/25 16:29 Pulse Oximetry 96 07/12/25 16:29 Oxygen Delivery Room Air 07/12/25 11:35 Lab Data Lab results reviewed: Yes I reviewed the patient's lab results. 07/12/25 09:49 07/12/25 09:48 Labs: Lab Results 07/12/25 07/12/25 Range/Units 09:48 09:49 WBC 10.5 H (4.5-10.0) K/mm3 RBC 4.39 L (4.6-6.20) M/mm3 Hgb 13.7 L (14.0-18.0) g/dL Hct 39.4 L (42.0-52.0) % MCV 89.7 (80-100) fl MCH 31.2 (26-34) pg MCHC 34.8 (32-36) g/dl RDW 12.3 (11.5-14.5) % Plt Count 264 (150-375) k/mm3 MPV 10.1 (7.4-10.4) fl Immature Gran % (Auto) 0.4 (0-0.5) % Neut % (Auto) 55.4 (45.5-73.1) % Lymph % (Auto) 25.1 (18.3-44.2) % Rooks % (Auto) 9.2 H (2.6-8.5) % Eos % (Auto) 9.2 H (0-4.4) % Baso % (Auto) 0.7 (0.2-1.2) % Lymph # (Auto) 2.63 (0.9-3.2) K/mm3 Rooks # (Auto) 1.0 H (0.1-0.6) K/mm3 Eos # (Auto) 1.0 H (0-0.3) K/mm3 Baso # (Auto) 0.1 (0.0-0.1) K/mm3 Abs Immat Gran (auto) 0.04 H (0.00-0.031) K/mm3 Absolute Neuts (auto) 5.8 (1.3-6.7) K/mm3 Absolute Nucleated RBC 0.000 (0.0-0.012) K/mm3 Nucleated RBC % 0.0 (0.0-0.2) % PT 17.3 H (11.1-14.7) Seconds INR 1.4 APTT 43.1 H (22.3-36.8) Seconds Sodium 125 L (137-145) mmol/L Potassium 4.3 (3.4-5.0) mmol/L Chloride 87 L (98-107) mmol/L Carbon Dioxide 32 H (22-30) mmol/L Anion Gap 6 (4-12) mmol/L BUN 11 (9-20) mg/dL Creatinine 0.78 (0.7-1.3) mg/dL Estim Creat Clear Calc 67 ml/min Estimated GFR > 60 (59 - ) Glucose 108 (65-110) mg/dL Calcium 8.7 (8.4-10.2) mg/dL Total Bilirubin 0.6 (0.2-1.3) mg/dL AST 30 (17-59) U/L ALT 22 (6-50) U/L Alkaline Phosphatase 94 (38-126) U/L NT-Pro-B Natriuret Pep 210 H (19.9-100) pg/mL Total Protein 7.3 (6.3-8.2) g/dL Albumin 4.2 (3.5-5.1) g/dL Influenza A (RT-PCR) Negative (Negative) Influenza B (RT-PCR) Negative (Negative) RSV (RT-PCR) Negative (Negative) SARS-CoV-2 RNA (RT-PCR) Negative (Negative) Imaging Data Radiologist's impression: Impressions Chest X-Ray 07/12/25 10:25 IMPRESSION: 1. No acute cardiopulmonary findings given portable technique. Chest/Abdomen/Pelvis CT 07/12/25 12:15 IMPRESSION: 1. Chronic bronchial wall thickening in bilateral lower lobes which could be due to bronchitis or reactive air disease/asthma. 2. Mild reticular opacities at the left lung base most likely related to atelectasis with differential including mild pulmonary edema, early pneumonia or more chronic interstitial lung disease. 3. Short segment of nonobstructed normal-appearing small bowel extending into the moderate-sized bilateral inguinal hernias. No acute intra-abdominal/pelvic process. 4. Moderate sigmoid diverticulosis. 5. Small sliding-type hiatal hernia. Discharge Plan Discharge Clinical Impression: Exertional dyspnea COPD (chronic obstructive pulmonary disease) Qualifiers: COPD type: unspecified COPD Qualified Code(s): J44.9 - Chronic obstructive pulmonary disease, unspecified Pneumonia Qualifiers: Pneumonia type: due to unspecified organism Laterality: unspecified laterality Lung location: unspecified part of lung Qualified Code(s): J18.9 - Pneumonia, unspecified organism Patient Disposition: Still a Patient Condition: Serious
--- NOTE | 2025-07-12 12:42 | P.HP_ITS ---
H&P: HPI History of Present Illness Date/Time: 07/12/25 12:42 Chief Complaint: Shortness of breath Narrative: 84-year-old male past medical history of COPD, hypertension, atrial fibrillation, and seizures presents the hospital with complaints shortness of breath. He states that has progressively gotten worse over the last month. To being extremely short of breath she presented to the hospital. Patient states that he was struggling with activities of daily living. Patient states that he drinks 3 beers a day. Patient states he no longer smokes. Denies fever chills nausea or vomiting. Lab work in the ED shows leukocytosis at 10.5, hemoglobin 13.7, sodium of 125, chloride of 87, carbon dioxide 32, proBNP 210, influenza A/B, RSV and COVID negative. CT of the chest abdomen pelvis show acute findings of chronic bronchial wall thickening in bilateral lower lobes which could be due to bronchitis or reactive air disease/asthma, and mild reticular opacities at the left lung base most likely related to atelectasis with differential including mild pulmonary edema, early pneumonia or more chronic interstitial lung disease. Patient being admitted to [facility] for COPD exacerbation with pneumonia. He was started on azithromycin, Rocephin, and Solu-Medrol. Review of Systems Review of Systems: 12 systems were reviewed and are negativ e except for as per HPI. [facility] Past Medical History Medical History (Updated 07/12/25 @ 18:28 by Jose Cronin MD) BMI 32.0-32.9,adult Status post stroke Hyponatremia Hypertension Tachy-lakhwinder syndrome Paroxysmal A-fib COVID-19 Altered mental status Seizure Essential (primary) hypertension Mixed hyperlipidemia Surgical History Surgical History History of tonsillectomy and adenoidectomy H/O colonoscopy with polypectomy History of removal of pigmented skin lesion H/O nasal septoplasty Sinus surgery H/O sinus surgery X3 H/O cataract extraction H/O abdominal surgery Abdominal umbilical hernia repair with multiple complications and least 2 more surgeries after that. Family History Family History Father Hypertension Cerebrovascular accident Mother Family history of congestive heart failure Family history of heart disease in male family member before age 55 Other Family history of allergic disorder Family history of arthritis Social History Social History Social History: The patient lives with his . He has 4 children. He drinks up to 5-6 beers a day and more on the weekends. 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 Patient quit smoking many years ago. No marijuana or illicit drugs noted. His is the durable power of insurance attorney for healthcare. Code status full code Smoking packs per day: 1.5 Smoking cigarettes per day: 30.0 Years smoked: 41 Smoking pack-years: 61.50 Smoking status: Former smoker Tobacco type: cigarettes Smoking end date: 08/06/99 Alcohol intake: current Drinks per week: 35 Alcohol use details: beer Substance use: never Substance use type: does not use Do You Feel Safe in your Home?: Yes Lack of Transportation: No Lack of Food: Never True Current Housing: I Have Housing Concerned About Future Housing: No Difficulty Paying Gas/Electric Bills: No Difficulty Paying for Meds: No Currently Unemployed: No Education: High School Diploma/GED Difficulty w/ Childcare or Family Care: No Spiritual care concerns: No Meds Home Medications and Allergies Home Medications ?Medication ?Instructions ?Recorded ?Confirmed ?Type folic acid 1 mg tablet 1 mg PO DAILY #90 tabs 08/2407/12/25 Rx rivaroxaban 20 mg tablet (Xarelto) 20 mg PO DAILY 04/2707/12/25 History thiamine HCl (vitamin B1) 100 mg 100 mg PO DAILY #90 t abs 01/08/24 07/12/25 Rx tablet sotalol 80 mg tablet 80 mg PO BID #28 tabs 07/12/25 Rx atorvastatin 40 mg tablet 40 mg PO DAILY #90 tabs 11/2907/12/25 Rx amlodipine 5 mg tablet See Rx Instructions .Route 0 02/09/25 07/12/25 Rx .COMPLEX #180 tabs levetiracetam 500 mg tablet 500 mg PO BID #180 tabs 07/12/25 Rx diclofenac sodium 1 % topical gel See Rx Instructions .Route 05/06/25 07/12/25 Rx .COMPLEX #100 grams albuterol sulfate 90 mcg/actuation 2 puff inhalation Q 4H PRN 06/21/25 07/12/25 Rx aerosol inhaler shortness of breath or wheez ing #8.5 grams fluticasone propionate 50 2 spray intranasal DAILY PRN nasal 07/12/25 07/12/25 History mcg/actuation nasal congestion spray,suspension Allergies Allergy/AdvReac Type Severity Reaction Status Date / Time phenylephrine Allergy Unknown Diarrhea Verified 07/12/25 14:25 levofloxacin AdvReac Unknown Diarrhea Verified 07/12/25 14:25 Penicillins AdvReac Rash Verified 07/12/25 14:25 Vital Signs Vital Signs - 24 hr 07/12/25 09:30 07/12/25 09:40 07/12/25 09:54 Temperature 97.8 F Pulse Rate 77 81 Respiratory Rate 19 22 H Blood Pressure 165/79 H Pulse Oximetry 98 97 Oxygen Delivery Room Air Room Air 07/12/25 10:08 07/12/25 10:30 07/12/25 10:31 Temperature Pulse Rate 76 75 72 Respiratory Rate 18 17 21 H Blood Pressure 164/83 H Pulse Oximetry 95 96 Oxygen Delivery 07/12/25 10:49 07/12/25 11:06 07/12/25 11:35 Temperature Pulse Rate 74 75 Respiratory Rate 25 H 19 Blood Pressure 143/79 H Pulse Oximetry 93 94 93 Oxygen Delivery Room Air 07/12/25 12:34 Temperature Pulse Rate 79 Respiratory Rate 15 Blood Pressure Pulse Oximetry Oxygen Delivery Exam Narrative: General: well appearing, appears stated age. HEENT: normocephalic, atraumatic. Mucous membranes moist. EOMI, PERRLA, bilateral sclera anicteric, no conjunctival injection. Neck supple without JVD, lymphadenopathy, or bruit. Respiratory: Expiratory wheeze Cardiovascular: Regular rate and rhythm, normal S1-S2 upon ascultation. No murmurs, rubs, or clicks. PMI is nondisplaced, capillary refill less than 3 second. Abdomen: Soft, round, no pulsatile masses, nondistended and nontender. No rebound, no guarding. No CVA tenderness, no hepatosplenomegaly. Bowel sounds present to all four quadrants. No high pitch or tinkling sounds, resonant to percussion. Extremities: No cyanosis, clubbing, or edema present. Pulses are palpable 2/2. Active ROM to all four extremities. Neuro: Alert and orientated x 4. PERRLA. Cranial nerves 2-12 intact without focal deficit. Skin: Warm, dry, and intact, without rash, erythema, or lesion. Psych: pleasant, cooperative, normal speech, normal affect, no hallucinations, no dysarthia H&P: Results Labs Labs: Short CBC 07/12/25 Range/Units 09:49 WBC 10.5 H (4.5-10.0) K/mm3 Hgb 13.7 L (14.0-18.0) g/dL Hct 39.4 L (42.0-52.0) % Plt Count 264 (150-375) k/mm3 BMP 07/12/25 09:48 Sodium 125 L Potassium 4.3 Chloride 87 L Carbon Dioxide 32 H BUN 11 Creatinine 0.78 Glucose 108 Calcium 8.7 Liver Function 07/12/25 Range/Units 09:48 Total Bilirubin 0.6 (0.2-1.3) mg/dL AST 30 (17-59) U/L ALT 22 (6-50) U/L Alkaline Phosphatase 94 (38-126) U/L Albumin 4.2 (3.5-5.1) g/dL Assessment and Plan Assessment and plan (1) COPD exacerbation: Code(s): J44.1 - Chronic obstructive pulmonary disease with (acute) exacerbation Status: Acute Assessment and Plan: Solu-Medrol x1 Prednisone daily DuoNebs (2) Pneumonia: Qualifiers: Laterality: unspecified laterality Lung location: unspecified part of lung Pneumonia type: due to unspecified organism Qualified Code(s): J18.9 - Pneumonia, unspecified organism Code(s): J18.9 - Pneumonia, unspecified organism Status: Acute Assessment and Plan: IV Rocephin and azithromycin Guaifenesin Incentive spirometer (3) Hyponatremia: Code(s): E87.1 - Hypo-osmolality and hyponatremia Status: Acute Assessment and Plan: Patient has chronic hyponatremia however it is lower than his baseline likely secondary to EtOH use Regular diet BMP in the morning (4) Elevated brain natriuretic peptide (BNP) level: Code(s): R79.89 - Other specified abnormal findings of blood chemistry Status: Acute Assessment and Plan: Patient appears to be euvolemic Possible edema on chest x-ray Echocardiogram pending (5) Alcoholism: Code(s): F10.20 - Alcohol dependence, uncomplicated Status: Chronic Assessment and Plan: Could be cause of chronic hyponatremia Monitor for withdrawals RACHAELWI protocol (6) Hypertension: Qualifiers: Hypertension type: primary hypertension Qualified Code(s): I10 - Essential (primary) hypertension Code(s): I10 - Essential (primary) hypertension Status: Acute Assessment and Plan: Continue Norvasc (7) Paroxysmal A-fib: Code(s): I48.0 - Paroxysmal atrial fibrillation Status: Acute Assessment and Plan: Check QTC before starting sotalol, patient was given azithromycin in the ED Continue Xarelto (8) Mixed hyperlipidemia: Code(s): E78.2 - Mixed hyperlipidemia Status: Chronic Assessment and Plan: Continue statin Quality VTE Prophylaxis VTE prophylaxis: mechanical ordered and pharmacologic ordered Hospitalist MIPS Advance Care Plan I have confirmed that the patient's Advanced Care Plan is present, code status is documented, or surrogate decision maker is listed in patient medical record.: Yes Medication Reconciliation I have utilized all available resources to obtain, update and review the patients current medications (includes all prescriptions, OTC, herbals, cannabis, and nutritional supplements).: Yes
[2025-07-12] MEDS: cefTRIAXone 1 GM in SODIUM CHLORIDE 0.9% IV 50 ML 100 ML IVPB (12:51)
[2025-07-12] MEDS: AZITHROMYCIN IV 500 MG in SODIUM CHLORIDE 0.9% IV 250 ML IVPB (13:32)
--- NOTE | 2025-07-12 14:23 | ADMGEN ---
This patient, Andre Steward, was admitted to Medical Room 251-01. Patient/family oriented to hospital policies and general routines including ID bracelet, bed and alarms, visiting hours, pain management, procedures, bathroom and other care routines, personal items, smoking policy, room service/diet, and visiting hours. Information on how to activate the Rapid Response Team has been discussed. Patient/Family are encouraged to report perceived risks to care and to ask questions if they do not understand what they are told or what they should do.
--- NOTE | 2025-07-12 17:40 | PCRCNOTE ---
Window of time for administration has passed. See next scheduled administration.
[2025-07-12] MEDS: ALBUTEROL SULFATE NEB 2.5 MG/3 ML INH INHALATION (20:12)
--- NOTE | 2025-07-12 22:02 | ECG_ITS ---
Test Date: 2025-07-12 22:28:43 Measurements Intervals [place] Rate: 73 P: 62 VA: 182 QRS: -8 QRSD: 84 T: 37 QT: 397 QTc: 438 Interpretive Statements SINUS RHYTHM POSSIBLE RIGHT VENTRICULAR CONDUCTION DELAY VOLTAGE CRITERIA FOR LVH BASELINE ARTIFACT- I, II, III, AVR, AVL, AVF, V1-V6 BORDERLINE ECG Compared to ECG 05/20/2024 16:22:52 Atrial-paced complex(es) or rhythm no longer present Electronically Signed On 07-13-2025 05:18:25 CDT by Santy Zaragoza D.O.
[2025-07-12] MEDS: guaiFENesin 12 HR 600 MG TABCR 1200 MG PO (22:50)
[2025-07-13] VITALS (20 sets, daily range): BP systolic 107–142; BP diastolic 52–78; PULSE 66–87; RESP 16–20; TEMP 36.4–36.8; O2SAT 94–97
--- NOTE | 2025-07-13 | ECHO_ITS ---
Patient Info Name: Andre Setward Age: 84 years : 1940 Gender: Male Ht: 67 in Wt: 200 lbs BSA: 2.10 m2 HR: 71 bpm BP: 139 / 70 mmHg Technical Quality: Good Exam Date: 07/13/2025 10:51 AM Patient Status: I Admit Date: 07/12/2025 Exam Type: CA echo doppler color flow Complete two-dimensional, color flow and Doppler transthoracic echocardiogram is performed. Staff Referring Physician: Jose Cronin Battery Engineer: Kelsi Frank Attending Provider: Javier Morales MD Summary 1. Complete two-dimensional, color flow and Doppler transthoracic echocardiogram is performed. 2. There is normal biventricular size and systolic function. 3. There is moderate aortic stenosis. 4. There is a small size pericardial effusion. Left Ventricle The left ventricle is normal in size and systolic function. There is concentric left ventricular remodeling. The left ventricular ejection fraction is visually estimated to be 60-65%. Right Ventricle The right ventricle is normal in size and systolic function. Left Atria The left atrium is normal size. Right Atria The right atrium is normal size. Atrial Septum The atrial septum is normal. Aortic Valve The aortic valve is trileaflet and calcified. There is moderate aortic stenosis. There is no aortic regurgitation. Pulmonic Valve The pulmonic valve is not well visualized. Mitral Valve The mitral valve leaflets are sclerotic. There is no mitral stenosis. There is trace mitral regurgitation. Tricuspid Valve The tricuspid valve is normal. There is mild tricuspid regurgitation. Pericardium/Pleural There is a small size pericardial effusion. Inferior Vena Cava Normal inferior vena cava with >50% collapse upon inspiration consistent with normal right atrial pressure, 3 mmHg. Aorta The aortic root at the level of the sinus of Valsalva measures 3.3 cm in diameter. Left Ventricular Outflow Tract Name Value Normal LVOT 2D LVOT Diameter 2.0 cm LVOT Doppler LVOT Peak Velocity 123 cm/s LVOT Peak Gradient 5 mmHg LVOT Mean Gradient 2 mmHg LVOT VTI 33 cm LVOT VTI/AV VTI Ratio 0.4 LVOT Stroke Volume 108 ml LVOT CO 6.5 l/min LVOT CI 3.1 l/min/m2 Pulmonic Valve Name Value Normal RVOT Doppler RVOT Peak Velocity 45 cm/s RVOT Peak Gradient 1 mmHg PV Doppler PV Peak Velocity 112 cm/s PV Peak Gradient 5 mmHg Mitral Valve Name Value Normal MV Diastolic Function MV E Peak Velocity 82 cm/s MV A Peak Velocity 126 cm/s MV E/A 0.6 MV Decel Time (PW) 387 ms MV Annular TDI MV E/e' (Septal) 9.4 MV E/e' (Lateral) 8.8 MV E/e' (Average) 9.1 Tricuspid Valve Name Value Normal TV Regurgitation Doppler TR Peak Velocity 365 cm/s TR Peak Gradient 53 mmHg Estimated PAP/RSVP RA Pressure 3 mmHg <=5 PA Systolic Pressure 56 mmHg <36 RV Systolic Pressure 56 mmHg <36 Aortic Valve Name Value Normal AV Doppler AV Peak Velocity 325 cm/s AV Peak Gradient 42 mmHg AV Mean Gradient 25 mmHg AV VTI 86 cm AV Area (Cont Eq VTI) 1.3 cm2 >=3.0 AV Area (Cont Eq Arun) 1.2 cm2 AV DI (Arun) 0.38 AV Regurgitation 2D LVOT Area 3.2 cm2 Ventricles Name Value Normal LV Dimensions 2D/MM IVS Diastolic Thickness (2D) 0.8 cm 0.6-1.0 LVID Diastole (2D) 4.4 cm 4.2-5.8 LVIW Diastolic Thickness (2D) 1.3 cm 0.6-1.0 LVID Systole (2D) 2.8 cm 2.5-4.0 LVOT Diameter 2.0 cm LV Mass (2D Cubed) 155.66 g 88.00-224.00 LV Mass Index (2D Cubed) 74 g/m2 49-115 Relative Wall Thickness (2D) 0.60 <=0.42 LV Fractional Shortening/Ejection Fraction 2D/MM LV Fractional Shortening (2D) 37 % 25-43 LV EF (2D Teichholz) 67 % LV Diastolic Volume (4C MOD) 97 ml LV EF (4C MOD) 61 % LV Diastolic Volume (2C MOD) 109 ml LV EF (2C MOD) 70 % LV Diastolic Volume (BP MOD) 105 ml 62-150 LV Diastolic Volume Index (BP MOD) 50 ml/m2 34-74 LV Systolic Volume (BP MOD) 35 ml 21-61 LV Systolic Volume Index (BP MOD) 17 ml/m2 11-31 LV EF (BP MOD) 66 % 52-72 LV Diastolic Length (4C) 9.5 cm LV Systolic Length (4C) 7.5 cm LV Stroke Volume (4C MOD) 59 ml Atria Name Value Normal LA Dimensions LA Volume (4C A-L) 48 ml LA Volume (BP A-L) 55 ml Report Signatures
[2025-07-13] MEDS: ALBUTEROL SULFATE NEB 2.5 MG/3 ML INH INHALATION ×4 (02:15→20:14)
[2025-07-13 04:25] LABS: Hematocrit 36.5 % (42.0-52.0); Hemoglobin 13.1 g/dL (14.0-18.0); Immature Granulocyte Percent A 0.6 % (0-0.5); Lymphocytes Absolute Auto 1.44 K/mm3 (0.9-3.2); Mean Corpuscular HGB Conc 35.9 g/dl (32-36); Mean Corpuscular Hemoglobin 31.9 pg (26-34); Mean Corpuscular Volume 88.8 fl (80-100); Nucleated Red Blood Cells Absolute Auto 0.000 K/mm3 (0.0-0.012); Nucleated Red Blood Cells Perc 0.0 % (0.0-0.2); Platelet Count Result 252 k/mm3 (150-375); Red Blood Count 4.11 M/mm3 (4.6-6.20); White Blood Count 8.8 K/mm3 (4.5-10.0)
[2025-07-13 04:40] LABS: Anion Gap 6 mmol/L (4-12); Blood Urea Nitrogen 14 mg/dL (9-20); Calcium 8.8 mg/dL (8.4-10.2); Carbon Dioxide 28 mmol/L (22-30); Chloride 91 mmol/L (98-107); Estimated CRCL calculation 70 ml/min; Estimated Glomerular Filt Rate > 60; Glucose 163 mg/dL (65-110); Potassium 4.0 mmol/L (3.4-5.0); Sodium 125 mmol/L (137-145)
[2025-07-13] MEDS: DOXYCYCLINE HYCLATE 100 MG TABLET PO ×2 (08:22→22:28)
[2025-07-13] MEDS: THIAMINE HCL 100 MG TABLET PO (08:23)
[2025-07-13] MEDS: guaiFENesin 12 HR 600 MG TABCR 1200 MG PO ×2 (08:23→22:28)
[2025-07-13] MEDS: SOTALOL HCL 80 MG TABLET PO ×2 (08:23→22:28)
[2025-07-13] MEDS: ATORVASTATIN 40 MG TABLET PO (08:23)
[2025-07-13] MEDS: FOLIC ACID 1 MG TABLET PO (08:23)
[2025-07-13] MEDS: cefTRIAXone 1 GM in SODIUM CHLORIDE 0.9% IV 50 ML 100 ML IVPB (12:57)
[2025-07-13] MEDS: DOCUSATE SODIUM 100 MG CAPSULE PO ×2 (12:57→17:34)
--- NOTE | 2025-07-13 14:51 | P.PNIM_ITS ---
Progress Note: A&P Assessment and Plan (1) COPD exacerbation: Code(s): J44.1 - Chronic obstructive pulmonary disease with (acute) exacerbation Status: Acute Assessment and Plan: Solu-Medrol x1 Prednisone daily DuoNebs (2) Pneumonia: Qualifiers: Laterality: unspecified laterality Lung location: unspecified part of lung Pneumonia type: due to unspecified organism Qualified Code(s): J18.9 - Pneumonia, unspecified organism Code(s): J18.9 - Pneumonia, unspecified organism Status: Acute Assessment and Plan: IV Rocephin and azithromycin Guaifenesin Incentive spirometer (3) Hyponatremia: Code(s): E87.1 - Hypo-osmolality and hyponatremia Status: Acute Assessment and Plan: Patient has chronic hyponatremia however it is lower than his baseline likely secondary to EtOH use Regular diet BMP in the morning (4) Elevated brain natriuretic peptide (BNP) level: Code(s): R79.89 - Other specified abnormal findings of blood chemistry Status: Acute Assessment and Plan: Patient appears to be euvolemic Possible edema on chest x-ray Echocardiogram pending 07/13 Summary ef 60-65% 1. Complete two-dimensional, color flow and Doppler transthoracic echocardiogram is performed. 2. There is normal biventricular size and systolic function. 3. There is moderate aortic stenosis. 4. There is a small size pericardial effusion. (5) Alcoholism: Code(s): F10.20 - Alcohol dependence, uncomplicated Status: Chronic Assessment and Plan: Could be cause of chronic hyponatremia Monitor for withdrawals [facility] protocol (6) Hypertension: Qualifiers: Hypertension type: primary hypertension Qualified Code(s): I10 - Essential (primary) hypertension Code(s): I10 - Essential (primary) hypertension Status: Acute Assessment and Plan: Continue Norvasc (7) Paroxysmal A-fib: Code(s): I48.0 - Paroxysmal atrial fibrillation Status: Acute Assessment and Plan: Check QTC before starting sotalol, patient was given azithromycin in the ED Continue Xarelto pt is fall and bleeding risk (8) Mixed hyperlipidemia: Code(s): E78.2 - Mixed hyperlipidemia Status: Chronic Assessment and Plan: Continue statin Time Spent With Patient Time with patient: 25 - 35 minutes Subjective Date/time seen: 07/13/25 14:51 Interval history: 84-year-old male past medical history of COPD, hypertension, atrial fibrillation, and seizures presents the hospital with complaints shortness of breath. He states that has progressively gotten worse over the last month. To being extremely short of breath she presented to the hospital. Patient states that he was struggling with activities of daily living. Patient states that he drinks 3 beers a day. Patient states he no longer smokes. Denies fever chills nausea or vomiting. Lab work in the ED shows leukocytosis at 10.5, hemoglobin 13.7, sodium of 125, chloride of 87, carbon dioxide 32, proBNP 210, influenza A/B, RSV and COVID negative. CT of the chest abdomen pelvis show acute findings of chronic bronchial wall thickening in bilateral lower lobes which could be due to bronchitis or reactive air disease/asthma, and mild reticular opacities at the left lung base most likely related to atelectasis with differential including mild pulmonary edema, early pneumonia or more chronic interstitial lung disease. Patient being admitted to [facility] for COPD exacerbation with pneumonia. He was started on azithromycin, Rocephin, and Solu-Medrol. Pt is seen and examined. still sob, no chest pain Review of Systems Review of Systems: 12 systems were reviewed and are negativ e except for as per HPI. Exam Narrative: General: well appearing, appears stated age. HEENT: normocephalic, atraumatic. Mucous membranes moist. EOMI, PERRLA, bilateral sclera anicteric, no conjunctival injection. Neck supple without JVD, lymphadenopathy, or bruit. Respiratory: Expiratory wheeze Cardiovascular: Regular rate and rhythm, normal S1-S2 upon ascultation. No murmurs, rubs, or clicks. PMI is nondisplaced, capillary refill less than 3 second. Abdomen: Soft, round, no pulsatile masses, nondistended and nontender. No rebound, no guarding. No CVA tenderness, no hepatosplenomegaly. Bowel sounds present to all four quadrants. No high pitch or tinkling sounds, resonant to percussion. Extremities: No cyanosis, clubbing, or edema present. Pulses are palpable 2/2. Active ROM to all four extremities. Neuro: Alert and orientated x 4. PERRLA. Cranial nerves 2-12 intact without focal deficit. Skin: Warm, dry, and intact, without rash, erythema, or lesion. Psych: pleasant, cooperative, normal speech, normal affect, no hallucinations, no dysarthia Const: General: comfortable Objective Data Vital Signs Vital Signs: Vital Signs - 24 hr 07/12/25 16:29 07/12/25 17:05 07/12/25 19:37 Temperature 97.2 F L 97.6 F Pulse Rate 64 64 69 Respiratory Rate 18 20 Blood Pressure 130/56 L 148/62 H Pulse Oximetry 96 94 Oxygen Delivery Fraction of Inspired Oxygen 07/12/25 20:00 07/12/25 20:00 07/12/25 20:12 Temperature Pulse Rate 75 72 Respiratory Rate 18 Blood Pressure Pulse Oximetry Oxygen Delivery Room Air Fraction of Inspired Oxygen 07/12/25 20:12 07/12/25 20:20 07/13/25 00:00 Temperature Pulse Rate 72 74 74 Respiratory Rate 18 Blood Pressure Pulse Oximetry 94 Oxygen Delivery Room Air Fraction of Inspired Oxygen 21 07/13/25 02:15 07/13/25 02:21 07/13/25 03:19 Temperature 97.6 F Pulse Rate 73 71 70 Respiratory Rate 18 18 20 Blood Pressure 139/70 Pulse Oximetry 94 Oxygen Delivery Fraction of Inspired Oxygen 07/13/25 04:00 07/13/25 07:50 07/13/25 07:56 Temperature Pulse Rate 79 83 85 Respiratory Rate 17 16 Blood Pressure Pulse Oximetry Oxygen Delivery Fraction of Inspired Oxygen 07/13/25 08:00 07/13/25 08:15 07/13/25 08:23 Temperature Pulse Rate 80 80 Respiratory Rate Blood Pressure Pulse Oximetry Oxygen Delivery Room Air Fraction of Inspired Oxygen 07/13/25 13:33 07/13/25 13:38 07/13/25 14:33 Temperature 98.2 F Pulse Rate 87 83 70 Respiratory Rate 16 16 20 Blood Pressure 107/52 L Pulse Oximetry 95 Oxygen Delivery Fraction of Inspired Oxygen Intake/Output Intake/Output: Intake & Output 07/10/25 07/11/25 07/12/25 07/13/25 23:59 23:59 23:59 23:59 Intake Total 690 900 Output Total 925 1300 Balance -235 -400 Meds/Results Medications: Active Medications Generic Name Dose Route Start Last Admin Trade Name Freq PRN Reason Stop Dose Admin Acetaminophen 650 mg 07/12/25 13:02 Acetaminophen 325 Mg Tablet PO Q4H PRN Mild Pain (1-3) or Fever Albuterol 2.5 mg 07/12/25 14:00 07/13/25 13:33 Albuterol Sulfate Neb 2.5 Mg/3 Ml Inh INHALATION 2.5 mg Q6HRT MARCELLA Administration Amlodipine Besylate 10 mg 07/12/25 22:00 07/13/25 08:23 Amlodipine Besylate 5 Mg Tablet BY MOUTH 10 mg DAILY MARCELLA Administration Atorvastatin Calcium 40 mg 07/13/25 09:00 07/13/25 08:23 Atorvastatin 40 Mg Tablet PO 40 mg DAILY MARCELLA Administration Docusate Sodium 100 mg 07/12/25 13:02 07/13/25 12:57 Docusate Sodium 100 Mg Capsule PO 100 mg BID PRN Administration Constipation Doxycycline Hyclate 100 mg 07/13/25 09:00 07/13/25 08:22 Doxycycline Hyclate 100 Mg Tablet PO 100 mg Q12HR MARCELLA Administration Folic Acid 1 mg 07/13/25 09:00 07/13/25 08:23 Folic Acid 1 Mg Tablet PO 1 mg DAILY MARCELLA Administration Guaifenesin 1,200 mg 07/12/25 21:00 07/13/25 08:23 Guaifenesin 12 Hr 600 Mg Tabcr PO 1,200 mg Q12HR MARCELLA Administration Ceftriaxone Sodium 1 gm/ 50 mls @ 100 mls/hr 07/13/25 13:00 07/13/25 12:57 Sodium Chloride IVPB 100 mls/hr Q24H MARCELLA Administration Levetiracetam 500 mg 07/12/25 22:00 07/13/25 08:22 Levetiracetam 500 Mg Tablet PO 500 mg BID MARCELLA Administration Lorazepam 2 mg 07/12/25 13:02 Lorazepam (*Crx) 1 Mg Tablet PO Q6HR PRN Alcohol Withdrawal Perflutren Lipid Microsphere 0 ml 07/12/25 22:05 Perflutren Lipid Microspheres 1.5 Ml Vial Diluted To 10 Ml Total Volume IV PUSH 07/15/25 22:05 ONCE PRN adequate visualization Protocol Prednisone 40 mg 07/13/25 08:00 07/13/25 08:23 Prednisone 20 Mg Tablet PO 07/18/25 07:59 40 mg DAILY@0800 MARCELLA Administration Sotalol HCl 80 mg 07/13/25 09:00 07/13/25 08:23 Sotalol Hcl 80 Mg Tablet PO 80 mg Q12HR MARCELLA Administration Thiamine HCl 100 mg 07/13/25 09:00 07/13/25 08:23 Thiamine Hcl 100 Mg Tablet PO 100 mg DAILY MARCELLA Administration Radiology Results: ITS Impressions Chest X-Ray 07/12/25 10:25 IMPRESSION: 1. No acute cardiopulmonary findings given portable technique. Chest/Abdomen/Pelvis CT 07/12/25 12:15 IMPRESSION: 1. Chronic bronchial wall thickening in bilateral lower lobes which could be due to bronchitis or reactive air disease/asthma. 2. Mild reticular opacities at the left lung base most likely related to atelectasis with differential including mild pulmonary edema, early pneumonia or more chronic interstitial lung disease. 3. Short segment of nonobstructed normal-appearing small bowel extending into the moderate-sized bilateral inguinal hernias. No acute intra-abdominal/pelvic process. 4. Moderate sigmoid diverticulosis. 5. Small sliding-type hiatal hernia. Labs Labs: Laboratory Results - last 24 hr 07/13/25 04:03 WBC 8.8 RBC 4.11 L Hgb 13.1 L Hct 36.5 L MCV 88.8 MCH 31.9 MCHC 35.9 RDW 12.5 Plt Count 252 MPV 10.3 Immature Gran % (Auto) 0.6 H Neut % (Auto) 79.7 H Lymph % (Auto) 16.4 L [place] % (Auto) 3.2 Eos % (Auto) 0.0 Baso % (Auto) 0.1 L Lymph # (Auto) 1.44 [place] # (Auto) 0.3 Eos # (Auto) 0.0 Baso # (Auto) 0.0 Abs Immat Gran (auto) 0.05 H Absolute Neuts (auto) 7.0 H Absolute Nucleated RBC 0.000 Nucleated RBC % 0.0 Sodium 125 L Potassium 4.0 Chloride 91 L Carbon Dioxide 28 Anion Gap 6 BUN 14 Creatinine 0.75 Estim Creat Clear Calc 70 Estimated GFR > 60 Glucose 163 H Calcium 8.8 Quality VTE Prophylaxis VTE prophylaxis: mechanical ordered and pharmacologic ordered
[2025-07-14] VITALS (20 sets, daily range): BP systolic 126–135; BP diastolic 50–64; PULSE 61–77; RESP 16–20; TEMP 36.2–36.6; O2SAT 93–98
[2025-07-14] MEDS: ALBUTEROL SULFATE NEB 2.5 MG/3 ML INH INHALATION ×4 (02:07→20:55)
[2025-07-14 05:50] LABS: Hematocrit 36.8 % (42.0-52.0); Hemoglobin 12.9 g/dL (14.0-18.0); Mean Corpuscular HGB Conc 35.1 g/dl (32-36); Mean Corpuscular Hemoglobin 31.6 pg (26-34); Mean Corpuscular Volume 90.2 fl (80-100); Platelet Count Result 275 k/mm3 (150-375); Red Blood Count 4.08 M/mm3 (4.6-6.20); White Blood Count 14.1 K/mm3 (4.5-10.0)
[2025-07-14 06:09] LABS: Anion Gap 5 mmol/L (4-12); Blood Urea Nitrogen 19 mg/dL (9-20); Calcium 8.7 mg/dL (8.4-10.2); Carbon Dioxide 29 mmol/L (22-30); Chloride 92 mmol/L (98-107); Estimated CRCL calculation 70 ml/min; Estimated Glomerular Filt Rate > 60; Glucose 91 mg/dL (65-110); Potassium 3.7 mmol/L (3.4-5.0); Sodium 126 mmol/L (137-145)
[2025-07-14] MEDS: ATORVASTATIN 40 MG TABLET PO (08:50)
[2025-07-14] MEDS: SOTALOL HCL 80 MG TABLET PO ×2 (08:50→20:26)
[2025-07-14] MEDS: THIAMINE HCL 100 MG TABLET PO (08:50)
[2025-07-14] MEDS: guaiFENesin 12 HR 600 MG TABCR 1200 MG PO ×2 (08:51→20:24)
[2025-07-14] MEDS: DOCUSATE SODIUM 100 MG CAPSULE PO (08:51)
[2025-07-14] MEDS: DOXYCYCLINE HYCLATE 100 MG TABLET PO ×2 (08:51→20:26)
[2025-07-14] MEDS: FOLIC ACID 1 MG TABLET PO (08:51)
[2025-07-14] MEDS: cefTRIAXone 1 GM in SODIUM CHLORIDE 0.9% IV 50 ML 100 ML IVPB (12:25)
--- NOTE | 2025-07-14 15:20 | P.PNIM_ITS ---
Progress Note: A&P Assessment and Plan (1) COPD exacerbation: Code(s): J44.1 - Chronic obstructive pulmonary disease with (acute) exacerbation Status: Acute Assessment and Plan: Solu-Medrol x1 Prednisone daily DuoNebs (2) Pneumonia: Qualifiers: Laterality: unspecified laterality Lung location: unspecified part of lung Pneumonia type: due to unspecified organism Qualified Code(s): J18.9 - Pneumonia, unspecified organism Code(s): J18.9 - Pneumonia, unspecified organism Status: Acute Assessment and Plan: IV Rocephin and azithromycin Guaifenesin Incentive spirometer will continue rocephin/azitho daily labs (3) Hyponatremia: Code(s): E87.1 - Hypo-osmolality and hyponatremia Status: Acute Assessment and Plan: Patient has chronic hyponatremia however it is lower than his baseline likely secondary to EtOH use Regular diet BMP in the morning (4) Elevated brain natriuretic peptide (BNP) level: Code(s): R79.89 - Other specified abnormal findings of blood chemistry Status: Acute Assessment and Plan: Patient appears to be euvolemic Possible edema on chest x-ray Echocardiogram pending 07/13 Summary ef 60-65% 1. Complete two-dimensional, color flow and Doppler transthoracic echocardiogram is performed. 2. There is normal biventricular size and systolic function. 3. There is moderate aortic stenosis. 4. There is a small size pericardial effusion. (5) Alcoholism: Code(s): F10.20 - Alcohol dependence, uncomplicated Status: Chronic Assessment and Plan: Could be cause of chronic hyponatremia Monitor for withdrawals [facility] protocol (6) Hypertension: Qualifiers: Hypertension type: primary hypertension Qualified Code(s): I10 - Essential (primary) hypertension Code(s): I10 - Essential (primary) hypertension Status: Acute Assessment and Plan: Continue Norvasc (7) Paroxysmal A-fib: Code(s): I48.0 - Paroxysmal atrial fibrillation Status: Acute Assessment and Plan: Check QTC before starting sotalol, patient was given azithromycin in the ED Continue Xarelto pt is fall and bleeding risk (8) Mixed hyperlipidemia: Code(s): E78.2 - Mixed hyperlipidemia Status: Chronic Assessment and Plan: Continue statin Time Spent With Patient Time with patient: 25 - 35 minutes Subjective Date/time seen: 07/14/25 15:20 Interval history: 84-year-old male past medical history of COPD, hypertension, atrial fibrillation, and seizures presents the hospital with complaints shortness of breath. He states that has progressively gotten worse over the last month. To being extremely short of breath she presented to the hospital. Patient states that he was struggling with activities of daily living. Patient states that he drinks 3 beers a day. Patient states he no longer smokes. Denies fever chills nausea or vomiting. Lab work in the ED shows leukocytosis at 10.5, hemoglobin 13.7, sodium of 125, chloride of 87, carbon dioxide 32, proBNP 210, influenza A/B, RSV and COVID negative. CT of the chest abdomen pelvis show acute findings of chronic bronchial wall thickening in bilateral lower lobes which could be due to bronchitis or reactive air disease/asthma, and mild reticular opacities at the left lung base most likely related to atelectasis with differential including mild pulmonary edema, early pneumonia or more chronic interstitial lung disease. Patient being admitted to [facility] for COPD exacerbation with pneumonia. He was started on azithromycin, Rocephin, and Solu-Medrol. Pt is seen and examined. still sob, no chest pain 10/10 resting in bed. Review of Systems Review of Systems: 12 systems were reviewed and are negativ e except for as per HPI. Exam Narrative: General: well appearing, appears stated age. HEENT: normocephalic, atraumatic. Mucous membranes moist. EOMI, PERRLA, bilateral sclera anicteric, no conjunctival injection. Neck supple without JVD, lymphadenopathy, or bruit. Respiratory: Expiratory wheeze Cardiovascular: Regular rate and rhythm, normal S1-S2 upon ascultation. No murmurs, rubs, or clicks. PMI is nondisplaced, capillary refill less than 3 second. Abdomen: Soft, round, no pulsatile masses, nondistended and nontender. No rebound, no guarding. No CVA tenderness, no hepatosplenomegaly. Bowel sounds present to all four quadrants. No high pitch or tinkling sounds, resonant to percussion. Extremities: No cyanosis, clubbing, or edema present. Pulses are palpable 2/2. Active ROM to all four extremities. Neuro: Alert and orientated x 4. PERRLA. Cranial nerves 2-12 intact without f ocal deficit. Skin: Warm, dry, and intact, without rash, erythema, or lesion. Psych: pleasant, cooperative, normal speech, normal affect, no hallucinations, no dysarthia Const: General: comfortable Objective Data Vital Signs Vital Signs: Vital Signs - 24 hr 07/13/25 16:00 07/13/25 20:00 07/13/25 20:00 Temperature Pulse Rate 66 67 Respiratory Rate Blood Pressure Pulse Oximetry Oxygen Delivery Room Air Fraction of Inspired Oxygen 07/13/25 20:14 07/13/25 20:21 07/13/25 20:23 Temperature Pulse Rate 74 74 76 Respiratory Rate 16 16 Blood Pressure Pulse Oximetry 97 Oxygen Delivery Room Air Fraction of Inspired Oxygen 21 07/13/25 21:00 07/13/25 22:28 07/14/25 00:00 Temperature Pulse Rate 76 68 Respiratory Rate Blood Pressure 142/78 H Pulse Oximetry Oxygen Delivery Fraction of Inspired Oxygen 07/14/25 02:07 07/14/25 02:12 07/14/25 04:00 Temperature Pulse Rate 66 69 62 Respiratory Rate 16 16 Blood Pressure Pulse Oximetry Oxygen Delivery Fraction of Inspired Oxygen 07/14/25 06:00 07/14/25 08:00 07/14/25 08:36 Temperature 97.9 F Pulse Rate 63 64 65 Respiratory Rate 16 17 Blood Pressure 126/50 L Pulse Oximetry 94 Oxygen Delivery Fraction of Inspired Oxygen 07/14/25 08:40 07/14/25 08:45 07/14/25 08:50 Temperature Pulse Rate 65 65 Respiratory Rate Blood Pressure Pulse Oximetry 93 Oxygen Delivery Room Air Room Air Fraction of Inspired Oxygen 07/14/25 08:54 07/14/25 12:00 07/14/25 14:00 Temperature 97.1 F L Pulse Rate 67 63 67 Respiratory Rate 17 16 Blood Pressure 135/64 Pulse Oximetry 97 Oxygen Delivery Fraction of Inspired Oxygen 07/14/25 14:19 07/14/25 14:24 Temperature Pulse Rate 61 72 Respiratory Rate 18 18 Blood Pressure Pulse Oximetry Oxygen Delivery Fraction of Inspired Oxygen Intake/Output Intake/Output: Intake & Output 07/11/25 07/12/25 07/13/25 07/14/25 23:59 23:59 23:59 23:59 Intake Total 690 1250 510 Output Total 925 1585 275 Balance -235 -335 235 Meds/Results Medications: Active Medications Generic Name Dose Route Start Last Admin Trade Name Freq PRN Reason Stop Dose Admin Acetaminophen 650 mg 07/12/25 13:02 Acetaminophen 325 Mg Tablet PO Q4H PRN Mild Pain (1-3) or Fever Albuterol 2.5 mg 07/12/25 14:00 07/14/25 14:18 Albuterol Sulfate Neb 2.5 Mg/3 Ml Inh INHALATION 2.5 mg Q6HRT MARCELLA Administration Amlodipine Besylate 10 mg 07/12/25 22:00 07/14/25 08:51 Amlodipine Besylate 5 Mg Tablet BY MOUTH 10 mg DAILY MARCELLA Administration Atorvastatin Calcium 40 mg 07/13/25 09:00 07/14/25 08:50 Atorvastatin 40 Mg Tablet PO 40 mg DAILY MARCELLA Administration Docusate Sodium 100 mg 07/12/25 13:02 07/14/25 08:51 Docusate Sodium 100 Mg Capsule PO 100 mg BID PRN Administration Constipation Doxycycline Hyclate 100 mg 07/13/25 09:00 07/14/25 08:51 Doxycycline Hyclate 100 Mg Tablet PO 100 mg Q12HR MARCELLA Administration Folic Acid 1 mg 07/13/25 09:00 07/14/25 08:51 Folic Acid 1 Mg Tablet PO 1 mg DAILY MARCELLA Administration Guaifenesin 1,200 mg 07/12/25 21:00 07/14/25 08:51 Guaifenesin 12 Hr 600 Mg Tabcr PO 1,200 mg Q12HR MARCELLA Administration Ceftriaxone Sodium 1 gm/ 50 mls @ 100 mls/hr 07/13/25 13:00 07/14/25 12:25 Sodium Chloride IVPB 100 mls/hr Q24H MARCELLA Administration Levetiracetam 500 mg 07/12/25 22:00 07/14/25 08:50 Levetiracetam 500 Mg Tablet PO 500 mg BID MARCELLA Administration Lorazepam 2 mg 07/12/25 13:02 Lorazepam (*Crx) 1 Mg Tablet PO Q6HR PRN Alcohol Withdrawal Perflutren Lipid Microsphere 0 ml 07/12/25 22:05 Perflutren Lipid Microspheres 1.5 Ml Vial Diluted To 10 Ml Total Volume IV PUSH 07/15/25 22:05 ONCE PRN adequate visualization Protocol Polyethylene Glycol 17 gm 07/14/25 11:21 07/14/25 12:25 Polyethylene Glycol 3350 17 Gm Powd.Pack PO 17 gm QAM PRN Administration Constipation Prednisone 40 mg 07/13/25 08:00 07/14/25 08:51 Prednisone 20 Mg Tablet PO 07/18/25 07:59 40 mg DAILY@0800 MARCELLA Administration Sotalol HCl 80 mg 07/13/25 09:00 07/14/25 08:50 Sotalol Hcl 80 Mg Tablet PO 80 mg Q12HR MARCELLA Administration Thiamine HCl 100 mg 07/13/25 09:00 07/14/25 08:50 Thiamine Hcl 100 Mg Tablet PO 100 mg DAILY MARCELLA Administration Radiology Results: ITS Impressions Chest X-Ray 07/12/25 10:25 IMPRESSION: 1. No acute cardiopulmonary findings given portable technique. Chest/Abdomen/Pelvis CT 07/12/25 12:15 IMPRESSION: 1. Chronic bronchial wall thickening in bilateral lower lobes which could be due to bronchitis or reactive air disease/asthma. 2. Mild reticular opacities at the left lung base most likely related to atelectasis with differential including mild pulmonary edema, early pneumonia or more chronic interstitial lung disease. 3. Short segment of nonobstructed normal-appearing small bowel extending into the moderate-sized bilateral inguinal hernias. No acute intra-abdominal/pelvic process. 4. Moderate sigmoid diverticulosis. 5. Small sliding-type hiatal hernia. Labs Labs: Laboratory Results - last 24 hr 07/14/25 05:08 WBC 14.1 H RBC 4.08 L Hgb 12.9 L Hct 36.8 L MCV 90.2 MCH 31.6 MCHC 35.1 RDW 12.6 Plt Count 275 MPV 10.8 H Sodium 126 L Potassium 3.7 Chloride 92 L Carbon Dioxide 29 Anion Gap 5 BUN 19 Creatinine 0.75 Estim Creat Clear Calc 70 Estimated GFR > 60 Glucose 91 Calcium 8.7 Quality VTE Prophylaxis VTE prophylaxis: mechanical ordered and pharmacologic ordered
[2025-07-14] MEDS: AZITHROMYCIN IV 500 MG in SODIUM CHLORIDE 0.9% IV 250 ML IVPB (17:55)
[2025-07-15] VITALS (10 sets, daily range): BP systolic 136; BP diastolic 65; PULSE 64–85; RESP 18–20; TEMP 36.5; O2SAT 96
[2025-07-15] MEDS: ALBUTEROL SULFATE NEB 2.5 MG/3 ML INH INHALATION ×2 (02:53→08:24)
[2025-07-15 05:07] LABS: Hematocrit 36.9 % (42.0-52.0); Hemoglobin 12.7 g/dL (14.0-18.0); Mean Corpuscular HGB Conc 34.4 g/dl (32-36); Mean Corpuscular Hemoglobin 31.4 pg (26-34); Mean Corpuscular Volume 91.1 fl (80-100); Platelet Count Result 252 k/mm3 (150-375); Red Blood Count 4.05 M/mm3 (4.6-6.20); White Blood Count 12.5 K/mm3 (4.5-10.0)
[2025-07-15 05:33] LABS: Anion Gap 4 mmol/L (4-12); Blood Urea Nitrogen 19 mg/dL (9-20); Calcium 8.4 mg/dL (8.4-10.2); Carbon Dioxide 29 mmol/L (22-30); Chloride 95 mmol/L (98-107); Estimated CRCL calculation 76 ml/min; Estimated Glomerular Filt Rate > 60; Glucose 115 mg/dL (65-110); Potassium 3.6 mmol/L (3.4-5.0); Sodium 128 mmol/L (137-145)
[2025-07-15] MEDS: ATORVASTATIN 40 MG TABLET PO (08:41)
[2025-07-15] MEDS: DOXYCYCLINE HYCLATE 100 MG TABLET PO (08:41)
[2025-07-15] MEDS: FOLIC ACID 1 MG TABLET PO (08:42)
[2025-07-15] MEDS: guaiFENesin 12 HR 600 MG TABCR 1200 MG PO (08:42)
[2025-07-15] MEDS: SOTALOL HCL 80 MG TABLET PO (08:42)
[2025-07-15] MEDS: THIAMINE HCL 100 MG TABLET PO (08:43)
--- NOTE | 2025-07-15 09:07 | P.DS_ITS ---
DS: Admitting Diagnosis Discharge Date 07/15 Admitting Diagnosis cough,sob DS: Discharge Diagnosis Discharge Diagnosis (1) COPD exacerbation: Code(s): J44.1 - Chronic obstructive pulmonary disease with (acute) exacerbation Status: Acute (2) Pneumonia: Qualifiers: Laterality: unspecified laterality Lung location: unspecified part of lung Pneumonia type: due to unspecified organism Qualified Code(s): J18.9 - Pneumonia, unspecified organism Code(s): J18.9 - Pneumonia, unspecified organism Status: Acute (3) Hyponatremia: Code(s): E87.1 - Hypo-osmolality and hyponatremia Status: Acute (4) Elevated brain natriuretic peptide (BNP) level: Code(s): R79.89 - Other specified abnormal findings of blood chemistry Status: Acute (5) Alcoholism: Code(s): F10.20 - Alcohol dependence, uncomplicated Status: Chronic (6) Hypertension: Qualifiers: Hypertension type: primary hypertension Qualified Code(s): I10 - Essential (primary) hypertension Code(s): I10 - Essential (primary) hypertension Status: Acute (7) Paroxysmal A-fib: Code(s): I48.0 - Paroxysmal atrial fibrillation Status: Acute (8) Mixed hyperlipidemia: Code(s): E78.2 - Mixed hyperlipidemia Status: Chronic DS: Summary Hospital Course Hospital Course: 84-year-old male past medical history of COPD, hypertension, atrial fibrillation, and seizures presents the hospital with complaints shortness of breath. He states that has progressively gotten worse over the last month. To being extremely short of breath she presented to the hospital. Patient states that he was struggling with activities of daily living. Patient states that he drinks 3 beers a day. Patient states he no longer smokes. Denies fever chills nausea or vomiting. Lab work in the ED shows leukocytosis at 10.5, hemoglobin 13.7, sodium of 125, chloride of 87, carbon dioxide 32, proBNP 210, influenza A/B, RSV and COVID negative. CT of the chest abdomen pelvis show acute findings of chronic bronchial wall thickening in bilateral lower lobes which could be due to bronchitis or reactive air disease/asthma, and mild reticular opacities at the left lung base most likely related to atelectasis with differential including mild pulmonary edema, early pneumonia or more chronic interstitial lung disease. Patient being admitted to [facility] for COPD exacerbation with pneumonia. He was started on azithromycin, Rocephin, and Solu-Medrol. # COPD exacerbation: Solu-Medrol x1 Prednisone daily- last dose 07/18- needs 3 more doses to complete the course DuoNebs - no wheezing on exam has albuterol at home on ra # Pneumonia IV Rocephin and azithromycin Guaifenesin Incentive spirometer WBC went up 07/14 but trending down today will discharge with po antibiotics to complete the course will need labs rechecked to ensure wbc trending down advised to get labs in few days and see PCP # Hyponatremia: Patient has chronic hyponatremia however it is lower than his baseline likely secondary to EtOH use Regular diet improved # Elevated brain natriuretic peptide (BNP) level: Patient appears to be euvolemic Possible edema on chest x-ray Echocardiogram pending 07/13 Summary ef 60-65% 1. Complete two-dimensional, color flow and Doppler transthoracic echocardiogram is performed. 2. There is normal biventricular size and systolic function. 3. There is moderate aortic stenosis. 4. There is a small size pericardial effusion. # Alcoholism: Could be cause of chronic hyponatremia Monitor for withdrawals CIWA protocol counselling completed #Hypertension: Continue Norvasc # Paroxysmal A-fib: Check QTC before starting sotalol, patient was given azithromycin in the ED Continue Xarelto QTC 438 pt is fall and bleeding risk # Mixed hyperlipidemia: Continue statin Time Spent with Patient Time attestation: Total time spent providing and/or coordinating discharge services: Exam Narrative: General: well appearing, appears stated age. reports improved in breathing and cough is less often- feels almsot back to his baseline, wants to go home HEENT: normocephalic, atraumatic. Mucous membranes moist. EOMI, PERRLA, bilateral sclera anicteric, no conjunctival injection. Neck supple without JVD, lymphadenopathy, or bruit. Respiratory: no wheezes Cardiovascular: Regular rate and rhythm, normal S1-S2 upon ascultation. No murmurs, rubs, or clicks. PMI is nondisplaced, capillary refill less than 3 second. Abdomen: Soft, round, no pulsatile masses, nondistended and nontender. No rebound, no guarding. No CVA tenderness, no hepatosplenomegaly. Bowel sounds present to all four quadrants. No high pitch or tinkling sounds, resonant to percussion. Extremities: No cyanosis, clubbing, or edema present. Pulses are palpable 2/2. Active ROM to all four extremities. Neuro: Alert and orientated x 4. PERRLA. Cranial nerves 2-12 intact without focal deficit. Skin: Warm, dry, and intact, without rash, erythema, or lesion. Psych: pleasant, cooperative, normal speech, normal affect, no hallucinations, no dysarthia Const: General: comfortable DS: Data Data Completed and Pending Labs on day of discharge: Labs from last 24 hours 07/15/25 04:44 WBC 12.5 H RBC 4.05 L Hgb 12.7 L Hct 36.9 L MCV 91.1 MCH 31.4 MCHC 34.4 RDW 12.6 Plt Count 252 MPV 10.4 Sodium 128 L Potassium 3.6 Chloride 95 L Carbon Dioxide 29 Anion Gap 4 BUN 19 Creatinine 0.68 L Estim Creat Clear Calc 76 Estimated GFR > 60 Glucose 115 H Calcium 8.4 Preliminary micro results at discharge 07/12/25 11:01 Blood Culture - Preliminary Blood 07/12/25 11:01 Blood Culture - Preliminary Blood Discharge Plan Discharge Attending physician on discharge: Fransisca Elliott Discharging Clinician: Jenn Aquino Patient Disposition: Home Activity: february shower Diet: heart healthy Discharge Instructions: YOu were admitted for COPD exacerbation and pneumonia Staretyd on Prednisone daily- needs 3 more doses to complete the course- last dose 07/18 has albuterol at home- use it if feeling short of breath and/or wheezy # Pneumonia You recieved IV Rocephin and azithromycin Guaifenesin (mucinex) to losen secretions Incentive spirometer- please continue to do it at home will discharge with oral antibiotics to complete the course will need labs rechecked to ensure wbc trending down- ordered advised to get labs in few days and see PCP Please return to ED if chest pain, increased shortness of breath and/or any new or concerning symptoms Patient Instructions: Antibiotic Form, How to Stop Smoking (DC) Patient Language: Greek Stand Alone Forms: General Discharge Information Follow-up/Referrals: Tere Spencer APRN [Primary Care Provider, Internal Medicine] - 2 Weeks Discharge Medications: New prednisone 20 mg Tablet 40 mg PO DAILY@0800 Qty: 3 0RF Rx Instructions: needs 3 more doses, last dose on 07/18 cefdinir 300 mg capsule 300 mg PO Q12H Qty: 8 0RF Rx Instructions: 4 more days of therapy azithromycin 250 mg tablet 250 mg PO DAILY Qty: 3 0RF Rx Instructions: 250 mg orally daily for 3 more days to complete treatment Continued albuterol sulfate 90 mcg/actuation HFA aerosol inhaler 2 puff inhalation Q4H PRN (Reason: shortness of breath or wheezing) Qty: 8.5 2RF Xarelto 20 mg tablet 20 mg PO DAILY Rx Instructions: must administer with evening meal fluticasone propionate 50 mcg/actuation spray,suspension 2 spray intranasal DAILY PRN (Reason: nasal congestion) Rx Instructions: administer into each nostril folic acid 1 mg tablet 1 mg PO DAILY Qty: 90 1RF thiamine HCl (vitamin B1) 100 mg tablet 100 mg PO DAILY Qty: 90 1RF sotalol 80 mg tablet 80 mg PO BID Qty: 28 0RF atorvastatin 40 mg tablet 40 mg PO DAILY Qty: 90 1RF amlodipine 5 mg tablet See Rx Instructions .ROUTE .COMPLEX Qty: 180 1RF Dose Instruction: TAKE 2 TABLET BY MOUTH EVERY DAY IN THE MORNING Rx Instructions: TAKE 2 TABLET BY MOUTH EVERY DAY IN THE MORNING levetiracetam 500 mg tablet 500 mg PO BID Qty: 180 1RF Rx Instructions: TAKE 1 TABLET BY MOUTH TWICE DAILY diclofenac sodium 1 % gel See Rx Instructions .ROUTE .COMPLEX Qty: 100 0RF Dose Instruction: 4 G TOPICALLY FOUR TIMES DAILY APPLY TO SINGLE KNEE Rx Instructions: 4 G TOPICALLY FOUR TIMES DAILY APPLY TO SINGLE KNEE Date of admission: 07/13/25 16:00 Primary Care Provider: Tree Spencer Admitting Provider: Javier Morales Attending physician on admission: Javier Morales Condition: Stable Quality VTE Prophylaxis VTE prophylaxis: mechanical ordered and pharmacologic ordered Hospitalist MIPS Heart Failure (Exclusion) Patient has history of Heart Transplant or Left Ventricular Assistive Device?: No IF YES, STOP HERE Heart Failure (Qualifier) Patient has current or prior documentation of LVEF less than or equal to 40%, or mod/servere depressed LVSF?: No IF NO, STOP HERE
== END 2025-07-15 13:12 | disposition home or self-care (01) | DRG 190 ==
LOC: ANHED 10:15 → ANH3MEDSUR 13:28 → ANH2MED 14:15
PROVIDERS: Nurse Practitioner Gerontology; Admitting Provider Family Medicine; Emergency Provider Emergency Medicine; PCP Nurse Practitioner Family; Visit Provider Nurse Practitioner
DX: J44.0 Chronic obstructive pulmonary disease with (acute) lower respiratory infection (principal); J18.9 Pneumonia, unspecified organism; E87.1 Hypo-osmolality and hyponatremia; J44.1 Chronic obstructive pulmonary disease with (acute) exacerbation; Z20.822 Contact with and (suspected) exposure to COVID-19; I48.0 Paroxysmal atrial fibrillation; E78.2 Mixed hyperlipidemia; I10 Essential (primary) hypertension; F10.20 Alcohol dependence, uncomplicated; Z87.891 Personal history of nicotine dependence; Z86.73 Personal history of transient ischemic attack (TIA), and cerebral infarction without residual deficits
CPT/HCPCS: 36415; 71045; 71260; 74177; 80048; 80053; 83880; 85025; 85027; 85610; 85730; 87040; 87637; 93005; 93306; 94640; 96365; 96375; 99285; A9270; G0378; J0456; J0696; J2919; J7050; J7512; Q9967

== ENCOUNTER 2025-07-24 09:20 | Emergency (ER) | payer MEDICARE, SELFPAY ==
[2025-07-24] VITALS (15 sets, daily range): BP systolic 130–157; BP diastolic 72–90; PULSE 64–83; RESP 14–24; TEMP 36; O2SAT 93–98
--- NOTE | ~2025-07-24 | XR_ITS ---
EXAMINATION: XR chest 2V 07/24/2025 13:38 INDICATION: Shortness of breath TECHNIQUE:Frontal and lateral images of the chest were obtained. COMPARISON: 09/06/2024 FINDINGS: Heart is mildly enlarged, unchanged. Left-sided generator with leads. Stable small calcified granuloma in the right lower lung. No pneumothorax. No pleural effusion. No free air under the diaphragm. No focal pulmonary consolidation. Osseous structures are similar to the prior study. IMPRESSION: 1: NO ACUTE CARDIOPULMONARY DISEASE. Reviewed, dictated and finalized at location Q.
--- NOTE | 2025-07-24 10:48 | ECG_ITS ---
Test Date: 2025-07-24 11:00:56 Measurements Intervals [place] Rate: 79 P: 125 AL: 214 QRS: -13 QRSD: 78 T: 36 QT: 356 QTc: 408 Interpretive Statements ELECTRONIC ATRIAL PACEMAKER POSSIBLE RIGHT VENTRICULAR CONDUCTION DELAY CANNOT R/O SEPTAL INFARCT, AGE INDETERMINATE BASELINE ARTIFACT- I, II, III, AVR, AVL, AVF, V1-V6 BORDERLINE ECG Compared to ECG 07/12/2025 22:28:43 Sinus rhythm no longer present Electronically Signed On 07-24-2025 11:04:39 CDT by Santy Zaragoza D.O.
[2025-07-24 11:15] LABS: Hematocrit 41.6 % (42.0-52.0); Hemoglobin 14.3 g/dL (14.0-18.0); Immature Granulocyte Percent A 0.3 % (0-0.5); Lymphocytes Absolute Auto 2.18 K/mm3 (0.9-3.2); Mean Corpuscular HGB Conc 34.4 g/dl (32-36); Mean Corpuscular Hemoglobin 31.6 pg (26-34); Mean Corpuscular Volume 91.8 fl (80-100); Nucleated Red Blood Cells Absolute Auto 0.000 K/mm3 (0.0-0.012); Nucleated Red Blood Cells Perc 0.0 % (0.0-0.2); Platelet Count Result 277 k/mm3 (150-375); Red Blood Count 4.53 M/mm3 (4.6-6.20); White Blood Count 11.5 K/mm3 (4.5-10.0)
[2025-07-24 11:25] LABS: Alanine Aminotransferase 34 U/L (6-50); Albumin Level 4.2 g/dL (3.5-5.1); Alkaline Phosphatase 92 U/L (38-126); Anion Gap 4 mmol/L (4-12); Aspartate Amino Transferase 33 U/L (17-59); Bilirubin,Total 0.9 mg/dL (0.2-1.3); Blood Urea Nitrogen 11 mg/dL (9-20); Calcium 8.7 mg/dL (8.4-10.2); Carbon Dioxide 32 mmol/L (22-30); Chloride 90 mmol/L (98-107); Estimated CRCL calculation 68 ml/min; Estimated Glomerular Filt Rate > 60; Glucose 119 mg/dL (65-110); Potassium 4.4 mmol/L (3.4-5.0); Sodium 126 mmol/L (137-145); Total Protein 7.3 g/dL (6.3-8.2)
[2025-07-24] MEDS: ALBUTEROL SULFATE NEB 2.5 MG/3 ML INH 15 MG INHALATION (11:48)
[2025-07-24] MEDS: IPRATROPIUM BR 0.02% INH SOLN 0.5 MG/2.5 ML VIAL 1.5 MG INHALATION (11:49)
--- NOTE | 2025-07-24 12:28 | ED.SOB ---
HPI - SOB/Dyspnea General Chief Complaint: Shortness of Breath/Dyspnea Stated Complaint: congested/SOB Time Seen by Provider: 07/24/25 11:17 Related Data Home Medications ?Medication ?Instructions ?Recorded ?Confirmed ?Last Taken ?Type rivaroxaban 20 mg tablet (Xarelto) 20 mg PO DAILY 12/10/23 07/19/25 07/12/25 History fluticasone propionate 50 2 spray intranasal DAILY PRN nasal 07/12/25 07/19/25 Unknown History mcg/actuation nasal congestion spray,suspension Allergies Allergy/AdvReac Type Severity Reaction Status Date / Time phenylephrine Allergy Unknown Diarrhea Verified 07/24/25 11:15 levofloxacin AdvReac Unknown Diarrhea Verified 07/24/25 11:15 Penicillins AdvReac Rash Verified 07/24/25 11:15 [facility] Past Medical History Medical History (Updated 07/24/25 @ 16:13 by Howie Gordon MD) BMI 32.0-32.9,adult Status post stroke Hyponatremia Hypertension Tachy-lakhwinder syndrome Paroxysmal A-fib COVID-19 Altered mental status Seizure Essential (primary) hypertension Mixed hyperlipidemia Surgical History Surgical History History of tonsillectomy and adenoidectomy H/O colonoscopy with polypectomy History of removal of pigmented skin lesion H/O nasal septoplasty Sinus surgery H/O sinus surgery X3 H/O cataract extraction H/O abdominal surgery Abdominal umbilical hernia repair with multiple complications and least 2 more surgeries after that. Family History Family History Father Hypertension Cerebrovascular accident Mother Family history of congestive heart failure Family history of heart disease in male family member before age 55 Other Family history of allergic disorder Family history of arthritis Social History Social History Social History: The patient lives with his . He has 4 children. He drinks up to 5-6 beers a day and more on the weekends. 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 Patient quit smoking many years ago. No marijuana or illicit drugs noted. His is the durable power of title attorney for healthcare. Code status full code Smoking packs per day: 1.5 Smoking cigarettes per day: 30.0 Years smoked: 41 Smoking pack-years: 61.50 Smoking status: Former smoker Tobacco type: cigarettes Smoking end date: 08/06/99 Alcohol intake: current Drinks per week: 35 Alcohol use details: beer Substance use: never Substance use type: does not use Do You Feel Safe in your Home?: Yes Lack of Transportation: No Lack of Food: Never True Current Housing: I Have Housing Concerned About Future Housing: No Difficulty Paying Gas/Electric Bills: No Difficulty Paying for Meds: No Currently Unemployed: No Education: High School Diploma/GED Difficulty w/ Childcare or Family Care: No Spiritual care concerns: No Course Course Emergency Course: Patient resting comfortably. Informed of results. Up and ambulatory without hypoxia after his 2nd nebulizer treatment. Will provide steroids for home as well as a nebulizer machine and nebulizer fluid. Vital Signs Vital signs: Vital Signs Temperature 96.8 F L 07/24/25 09:27 Pulse Rate 81 07/24/25 09:27 Respiratory Rate 20 07/24/25 09:27 Blood Pressure 150/80 H 07/24/25 09:27 Pulse Oximetry 98 07/24/25 09:27 Oxygen Delivery Room Air 07/24/25 09:27 Temperature 96.8 F L 07/24/25 09:27 Pulse Rate 72 07/24/25 14:45 Respiratory Rate 16 07/24/25 14:45 Blood Pressure 140/89 07/24/25 13:53 Pulse Oximetry 93 07/24/25 13:53 Oxygen Delivery Room Air 07/24/25 11:13 MDM - SOB/Dyspnea Lab Data 07/24/25 11:07 07/24/25 11:07 Labs: Lab Results 07/24/25 Range/Units 11:07 WBC 11.5 H (4.5-10.0) K/mm3 RBC 4.53 L (4.6-6.20) M/mm3 Hgb 14.3 (14.0-18.0) g/dL Hct 41.6 L (42.0-52.0) % MCV 91.8 (80-100) fl MCH 31.6 (26-34) pg MCHC 34.4 (32-36) g/dl RDW 12.5 (11.5-14.5) % Plt Count 277 (150-375) k/mm3 MPV 10.1 (7.4-10.4) fl Immature Gran % (Auto) 0.3 (0-0.5) % Neut % (Auto) 65.2 (45.5-73.1) % Lymph % (Auto) 19.0 (18.3-44.2) % Ford % (Auto) 6.5 (2.6-8.5) % Eos % (Auto) 8.4 H (0-4.4) % Baso % (Auto) 0.6 (0.2-1.2) % Lymph # (Auto) 2.18 (0.9-3.2) K/mm3 [place] # (Auto) 0.7 H (0.1-0.6) K/mm3 Eos # (Auto) 1.0 H (0-0.3) K/mm3 Baso # (Auto) 0.1 (0.0-0.1) K/mm3 Abs Immat Gran (auto) 0.04 H (0.00-0.031) K/mm3 Absolute Neuts (auto) 7.5 H (1.3-6.7) K/mm3 Absolute Nucleated RBC 0.000 (0.0-0.012) K/mm3 Nucleated RBC % 0.0 (0.0-0.2) % Sodium 126 L (137-145) mmol/L Potassium 4.4 (3.4-5.0) mmol/L Chloride 90 L (98-107) mmol/L Carbon Dioxide 32 H (22-30) mmol/L Anion Gap 4 (4-12) mmol/L BUN 11 D (9-20) mg/dL Creatinine 0.77 (0.7-1.3) mg/dL Estim Creat Clear Calc 68 ml/min Estimated GFR > 60 (59 - ) Glucose 119 H (65-110) mg/dL Calcium 8.7 (8.4-10.2) mg/dL Total Bilirubin 0.9 (0.2-1.3) mg/dL AST 33 (17-59) U/L ALT 34 (6-50) U/L Alkaline Phosphatase 92 (38-126) U/L Total Protein 7.3 (6.3-8.2) g/dL Albumin 4.2 (3.5-5.1) g/dL Imaging Data Radiologist's impression: ITS Impressions Chest X-Ray 07/24/25 13:52 IMPRESSION: 1: NO ACUTE CARDIOPULMONARY DISEASE. Discharge Plan Discharge Clinical Impression: COPD exacerbation Patient Disposition: Home Condition: Stable Instructions: COPD (Chronic Obstructive Pulmonary Disease) (ED) Additional Instructions: Please return to the emergency department if you develop severe and persistent chest pain, difficulty breathing, dizziness, leg swelling or if you are coughing up blood as these can be signs of a medical emergency. Please call your doctor for a follow up appointment to determine the need for further testing. Patient Language: Serbian Prescriptions: New (DME) nebulizer and compressor [All-In-One Nebulizer System] Device See Rx Instructions .Route Qty: 1 0RF Rx Instructions: As directed ipratropium-albuterol 0.5 mg-3 mg(2.5 mg base)/3 mL solution for nebulization 3 ml inhalation QID PRN (Reason: shortness of breath) Qty: 90 0RF prednisone 20 mg tablet 40 mg PO DAILY 6 Days Qty: 12 0RF No Action albuterol sulfate 90 mcg/actuation HFA aerosol inhaler 2 puff inhalation Q4H PRN (Reason: shortness of breath or wheezing) Qty: 8.5 2RF Xarelto 20 mg tablet 20 mg PO DAILY Rx Instructions: must administer with evening meal fluticasone propionate 50 mcg/actuation spray,suspension 2 spray intranasal DAILY PRN (Reason: nasal congestion) Rx Instructions: administer into each nostril prednisone 20 mg Tablet 40 mg PO DAILY@0800 Qty: 3 0RF Rx Instructions: needs 3 more doses, last dose on 07/18 cefdinir 300 mg capsule 300 mg PO Q12H Qty: 8 0RF Rx Instructions: 4 more days of therapy azithromycin 250 mg tablet 250 mg PO DAILY Qty: 3 0RF Rx Instructions: 250 mg orally daily for 3 more days to complete treatment folic acid 1 mg tablet 1 mg PO DAILY Qty: 90 1RF thiamine HCl (vitamin B1) 100 mg tablet 100 mg PO DAILY Qty: 90 1RF sotalol 80 mg tablet 80 mg PO BID Qty: 28 0RF atorvastatin 40 mg tablet 40 mg PO DAILY Qty: 90 1RF amlodipine 5 mg tablet See Rx Instructions .ROUTE .COMPLEX Qty: 180 1RF Dose Instruction: TAKE 2 TABLET BY MOUTH EVERY DAY IN THE MORNING Rx Instructions: TAKE 2 TABLET BY MOUTH EVERY DAY IN THE MORNING levetiracetam 500 mg tablet 500 mg PO BID Qty: 180 1RF Rx Instructions: TAKE 1 TABLET BY MOUTH TWICE DAILY diclofenac sodium 1 % gel See Rx Instructions .ROUTE .COMPLEX Qty: 100 0RF Dose Instruction: 4 G TOPICALLY FOUR TIMES DAILY APPLY TO SINGLE KNEE Rx Instructions: 4 G TOPICALLY FOUR TIMES DAILY APPLY TO SINGLE KNEE albuterol sulfate 2.5 mg /3 mL (0.083 %) solution for nebulization 2.5 mg inhalation Q4-6H PRN (Reason: shortness of breath or wheezing) Qty: 180 0RF Follow-up/Referrals: Tere Spencer APRN [Primary Care Provider, Internal Medicine] - 1 Week
[2025-07-24] MEDS: IPRATROPIUM 0.5 MG/ALBUTEROL SULFATE 2.5 MG (BASE) AMPUL.NEB 3 ML INHALATION (14:45)
== END 2025-07-24 16:43 | disposition home or self-care (01) ==
PROVIDERS: Emergency Provider Emergency Medicine; PCP Nurse Practitioner Family
DX: J44.1 Chronic obstructive pulmonary disease with (acute) exacerbation (principal); I10 Essential (primary) hypertension; I48.0 Paroxysmal atrial fibrillation; E78.2 Mixed hyperlipidemia; Z95.0 Presence of cardiac pacemaker; Z86.16 Personal history of COVID-19; Z86.73 Personal history of transient ischemic attack (TIA), and cerebral infarction without residual deficits; Z86.0100 Personal history of colon polyps, unspecified; Z87.891 Personal history of nicotine dependence; Z98.49 Cataract extraction status, unspecified eye; Z79.01 Long term (current) use of anticoagulants; Z79.899 Other long term (current) drug therapy; R94.31 Abnormal electrocardiogram [ECG] [EKG]
CPT/HCPCS: 36415; 71046; 80053; 85025; 93005; 94640; 99284; J7512